=== PATIENT | male | born 1960 | race Caucasian/White ===

== ENCOUNTER → 2024-03-14 11:25 | Outpatient (BNVA) | payer MEDICAID, SELFPAY | PROVIDERS: Family Provider Family Medicine; PCP Family Medicine; Referring Provider Family Medicine; Visit Provider Internal Medicine Cardiovascular Disease | DX: R07.9 Chest pain, unspecified (principal) | CPT/HCPCS: 93005 ==

== ENCOUNTER 2024-04-27 10:06 | Outpatient (CLI) | payer MEDICAID, SELFPAY | END 2024-04-27 10:07 | disposition home or self-care (01) | LOC: RAD 10:06 | PROVIDERS: Family Provider Family Medicine; PCP Family Medicine; Visit Provider Internal Medicine Cardiovascular Disease | DX: I25.810 Atherosclerosis of coronary artery bypass graft(s) without angina pectoris (principal); I11.0 Hypertensive heart disease with heart failure; I50.22 Chronic systolic (congestive) heart failure; E11.9 Type 2 diabetes mellitus without complications; E78.00 Pure hypercholesterolemia, unspecified; Z79.4 Long term (current) use of insulin; Z86.73 Personal history of transient ischemic attack (TIA), and cerebral infarction without residual deficits; I73.9 Peripheral vascular disease, unspecified; R94.31 Abnormal electrocardiogram [ECG] [EKG] | CPT/HCPCS: 99205 ==

== ENCOUNTER 2024-10-24 12:13 | Inpatient (IN) | payer MEDICAID, SELFPAY ==
[2024-10-24] VITALS (67 sets, daily range): BP systolic 99–151; BP diastolic 50–89; PULSE 82–120; RESP 15–35; TEMP 37.2; O2SAT 89–100; BMI 32.5
--- NOTE | 2024-10-24 12:18 | XRR_ITS ---
PROCEDURE INFORMATION: Exam: XR Chest Exam date and time: 10/24/2024 1:07 PM Age: 64 years old Clinical indication: Shortness of breath; Additional info: SOB TECHNIQUE: Imaging protocol: Radiologic exam of the chest. Views: 1 view. COMPARISON: CT chest wo con [id number] 03/29/2019 10:52 AM FINDINGS: Lungs: Interval development of compressive atelectasis in the right and left lower lobes, right middle lobe, and left lingula. Pleural spaces: Interval development of small/moderate bilateral pleural effusions and fluid along the left major fissure. Heart/Mediastinum: Stable moderate enlargement of the cardiac silhouette. Mediastinal contours are unremarkable. Vasculature: Stable vascular calcifications in the aorta. Bones/joints: Unremarkable for age. XR/XR chest 1V portable [id number] IMPRESSION: 1. Interval development of small/moderate bilateral pleural effusions and fluid along the left major fissure with compressive atelectasis in the right and left lower lobes, right middle lobe, and left lingula. 2. Incidental/nonacute findings are listed in the report.
--- NOTE | 2024-10-24 12:20 | ECG_ITS ---
[facility] Test Date: 2024-10-24 Pat Name: Owen Ann Department: Room: Gender: Male Bible Reader: : 1960 Requested By: Denis Early Order Number: [id number] Chun MD: Abilio Perdomo M.D. Measurements Intervals [place] Rate: 113 P: 42 [place]: 195 QRS: -29 QRSD: 128 T: 128 QT: 340 QTc: 468 Interpretive Statements SINUS TACHYCARDIA POSSIBLE ANTERIOR MYOCARDIAL INFARCTION , OF INDETERMINATE AGE [30 ms Q WAVE IN V3/V4, OR R < 0.2 mV IN V4] MODERATE T-WAVE ABNORMALITY, CONSIDER LATERAL ISCHEMIA [-0.1+ mV T-WAVE IN I/aVL/V5/V6] Compared to ECG 03/14/2024 11:37:38 Myocardial infarct finding now present T-wave abnormality now present Possible ischemia now present Sinus rhythm no longer present Left-axis deviation no longer present Left bundle-branch block no longer present Electronically Signed On 10-29-2024 18:16:54 ASSET COORDINATOR by Abilio Perdomo M.D. [id number]
--- NOTE | 2024-10-24 12:20 | ECG_ITS ---
[facility] Test Date: 2024-10-24 Pat Name: Owen Ann Department: Room: Gender: Male Jewelry Dipper: : 1960 Requested By: Denis Early Order Number: [id number] Chun MD: Abilio Perdomo M.D. Measurements Intervals [place] Rate: 113 P: 42 [place]: 195 QRS: -29 QRSD: 128 T: 128 QT: 340 QTc: 468 Interpretive Statements SINUS TACHYCARDIA POSSIBLE ANTERIOR MYOCARDIAL INFARCTION , OF INDETERMINATE AGE [30 ms Q WAVE IN V3/V4, OR R < 0.2 mV IN V4] MODERATE T-WAVE ABNORMALITY, CONSIDER LATERAL ISCHEMIA [-0.1+ mV T-WAVE IN I/aVL/V5/V6] Compared to ECG 03/14/2024 11:37:38 Myocardial infarct finding now present T-wave abnormality now present Possible ischemia now present Sinus rhythm no longer present Left-axis deviation no longer present Left bundle-branch block no longer present Electronically Signed On 10-29-2024 18:16:51 ARCADE GAME TECHNICIAN by Abilio Perdomo M.D. [email or web address] [id number]
[2024-10-24 13:17] LABS: Basophils # 0.1 10^3/uL (0.0-0.1); Basophils % 0.6 %; Eosinophils # 0.1 10^3/uL (0.0-0.8); Eosinophils % 0.6 %; Hematocrit 29.7 % (37-53); Lymphocytes # 0.6 10^3/uL (0.8-4.8); Lymphocytes % 6.3 %; Mean Corpuscular HGB Conc 26.3 g/dL (30-55); Mean Corpuscular Hemoglobin 16.7 pg (27-33); Mean Corpuscular Volume 63.6 fl (82-101); Mean Platelet Volume 10.6 fL (7.4-10.4); Monocytes # 0.7 10^3/uL (0.2-0.9); Monocytes % 7.9 %; Neutrophils # 7.36 10^3/uL (1.8-7.7); Neutrophils % 83.8 %; Nucleated Red Blood Cells % 0 %; Platelet Count 214 10^3/cmm (157-399); Red Blood Count 4.67 10^6/uL (3.85-5.65); Red Cell Distribution Width 18.3 % (12.1-15.1); White Blood Count 8.77 10^3/uL (3.29-11.43)
[2024-10-24 13:34] LABS: D Dimer 0.53 ug/mLFEU (0-0.59)
[2024-10-24 13:45] LABS: Troponin(5th) Baseline 76 ng/L (0-15)
[2024-10-24 13:52] LABS: Alanine Aminotransferase 10 U/L (0-41); Albumin Level 3.8 g/dL (3.5-5.2); Alkaline Phosphatase 80 U/L (40-130); Aspartate Amino Transferase 12 U/L (0-40); Blood Urea Nitrogen 18 mg/dL (8-23); Calcium 8.9 mg/dL (8.5-10.5); Carbon Dioxide 24 mmol/L (22-29); Chloride 98 mmol/L (98-107); Creatinine Clr Calc Pharmacy 80.0489; Globulin 2.1 g/dL (1.3-4.6); Glomerular Filtration Rate 67.6 mL/min (90-130); Glucose 134 mg/dL (65-115); NT Pro B Type Natriuretic Pept 4116 pg/mL (0-125); Osmolality Calculated 282 mOsm/kg (285-295); Sodium 134 mmol/L (136-145); Total Bilirubin 1.5 mg/dL (0.15-1.2); Total Protein 5.9 g/dL (6.6-8.7)
--- NOTE | 2024-10-24 13:54 | W.ED.SOB ---
HPI - SOB/Dyspnea General: Chief Complaint: Shortness of Breath/Dyspnea Stated Complaint: chf problems Time Seen by Provider: 10/24/24 13:07 Source: patient and family Mode of arrival: ambulatory Limitations: no limitations History of Present Illness: HPI Narrative: 64-year-old male with a history of sarcoidosis, diabetes, congestive heart failure, hypertension, anemia presents to the ER complaining of shortness of breath. Patient states he has been having a fever for the past 2 days the highest at 101 ?F. Patient also reports having a productive cough-denies hemoptysis. Patient reports swelling of lower extremities bilaterally but states this has been present x 6 months. Patient does take 80mg lasix BID. Patient is on 2.5 L of oxygen at home at all times. Patient denies chest pain, vision changes, abdominal pain, constipation, diarrhea, headaches. MD elicited complaint: shortness of breath and cough Pertinent past history: congestive heart failure and diabetes Onset (ago): day(s) Context: recent illness Timing: constant Severity: moderate Exacerbating factors: exertion Relieving factors: oxygen Known history of: congestive heart failure and diabetes Associated symptoms: Reports chest congestion and fever(s); Deny abdominal pain, chest pain, dizziness, extremity pain, hemoptysis, nausea, palpitations, syncope or vomiting Treatment prior to arrival: oxygen and diuretics Related Data Home Medications ?Medication ?Instructions ?Recorded ?Confirmed albuterol sulfate 2.5 mg/3 mL 2.5 mg inhalation Q4H PRN 07/05/21 10/24/24 (0.083 %) solution for nebulization Shortness Of Breath Or Wheezing aspirin 81 mg tablet,delayed 81 mg PO DAILY 07/05/21 10/24/24 release (Adult Aspirin Regimen) atorvastatin 40 mg tablet 40 mg PO DAILY 07/05/21 10/24/24 carvedilol 25 mg tablet 25 mg PO BID 07/05/21 10/24/24 fluticasone 250 mcg-salmeterol 50 1 inh inhalation BID 07/05/21 10/24/24 mcg/dose blistr powdr for inhalation (Wixela Inhub) furosemide 80 mg tablet 80 mg PO BID 07/05/21 10/24/24 gabapentin 100 mg capsule 200 mg PO BID 07/05/21 10/24/24 guaifenesin 1,200 mg tablet, 1,200 mg PO BID 07/05/21 10/24/24 extended release 12 hr (Mucinex) ipratropium 0.5 mg-albuterol 3 mg 3 ml inhalation QID PRN Shortness 07/05/21 10/24/24 (2.5 mg base)/3 mL nebulization Of Breath Or Wheezing soln isosorbide mononitrate 30 mg 30 mg PO DAILY 07/05/21 10/24/24 tablet,extended release 24 hr valsartan 320 mg tablet 320 mg PO DAILY 07/05/21 10/24/24 albuterol sulfate 90 mcg/actuation 2 puff inhalation Q4H PRN 06/15/23 10/24/24 aerosol inhaler (Ventolin HFA) Shortness Of Breath Or Wheezing blood sugar diagnostic (OneTouch 06/15/23 10/24/24 Verio test strips) glyburide 5 mg tablet 10 mg PO BID 06/15/23 10/24/24 insulin aspart U-100 100 unit/mL 25 unit SUBCUT TID 06/15/23 10/24/24 (3 mL) subcutaneous pen (Novolog FlexPen U-100 Insulin aspart) insulin glargine 100 unit/mL 75 unit SUBCUT DAILY 06/15/23 10/24/24 subcutaneous solution (Lantus U-100 Insulin) pen needle, diabetic 31 gauge x 06/15/23 10/24/24 3/16 (TechLITE Pen Needle) pen needle, diabetic 32 gauge x 06/15/23 10/24/24 5/32 (TechLITE Pen Needle) tramadol 50 mg tablet 50 mg PO Q6H PRN chronic pain 06/15/23 10/24/24 fluticasone propionate 50 1 spray intranasal DAILY 10/24/24 10/24/24 mcg/actuation nasal spray,suspension Allergies Allergy/AdvReac Type Severity Reaction Status Date / Time lisinopril AdvReac cough Verified 10/24/24 12:27 Review of Systems Const: Reports: fever(s), body aches and fatigue; Denies: chills Eyes: Denies: change in vision, blurry vision, photophobia, eye discomfort, eye discharge or eye redness Card: Reports: edema, swelling of feet/ankles and dyspnea on exertion; Denies: chest pain, palpitations, syncope or pre-syncope Resp: Reports: dyspnea, productive cough and chest congestion; Denies: non-productive cough, wheezing or hemoptysis GI: Denies: abdominal pain, nausea, vomiting or diarrhea Musc: Reports: extremity swelling; Denies: neck pain, back pain, extremity pain, joint pain, joint swelling or joint warmth Skin/Breast: Denies: rash Neuro: Denies: headache(s), numbness in extremities, weakness in extremities, sensory changes or dizziness PFSH ED PFSH: Medical History Hypertension Diabetes Chronic systolic (congestive) heart failure COPD (chronic obstructive pulmonary disease) [place] type 2a hyperlipoproteinemia Type 2 diabetes mellitus without complication Cerebrovascular accident Arteriosclerosis of coronary artery bypass graft Surgical History Hx of CABG Family History Mother Cancer Father Diabetes Brother Psychiatric illness Social History Smoking and tobacco/nicotine status: never used tobacco/nicotine Physical Exam Const: COMMON NORMALS: no acute distress, patient oriented x3, no limitations, alert and well nourished GENERAL APPEARANCE: cooperative ORIENTATION/CONSCIOUSNESS: Yes awake, Yes oriented to person, Yes oriented to place and Yes oriented to time Neck/C-Spine: COMMON NORMALS: no JVD Chest: COMMONS NORMALS: normal inspection of the chest and normal palpation of entire chest wall Resp: COMMON NORMALS: normal respiratory effort EFFORT & INSPECTION: Yes able to speak in complete sentences and Yes symmetric chest movement AUSCULTATION: crackles (lung bases) and wheezes (lower lobes bilaterally ) left lower and right lower Cardio: COMMON NORMALS: no JVD and regular rhythm RATE: tachycardic RHYTHM: regular rhythm GI: COMMON NORMALS: Normal to inspection, nondistended, normoactive bowel sounds present and Soft to palpation PALPATION: Yes Soft to palpation Back/Pelvis: COMMON NORMALS: thoracic and lumbar spine normal to inspection Extremity: COMMON NORMALS: capillary refill normal and no calf tenderness GENERAL: Yes edema (1+ pitting edema lower extremities bilaterally) Neuro: COMMON NORMALS: patient oriented x3, moves all extremities, no focal motor deficits and no sensory deficits noted SENSORIUM/ORIENTATION: Yes alert, Yes oriented to person, Yes oriented to place and Yes oriented to time Skin: COMMON NORMALS: no rashes or lesions noted GENERAL SKIN EXAM: no rashes or lesions noted Course Consultations: Consultation #1: Dr. Decker-accepts hospitalization to [facility] Vital Signs: Vital signs: Vital Signs Temperature 98.9 F 10/24/24 12:16 Pulse Rate 112 H 10/24/24 15:06 Respiratory Rate 24 H 10/24/24 15:06 Blood Pressure 151/74 10/24/24 12:16 Pulse Oximetry 100 10/24/24 15:06 Oxygen Delivery Me thod Nasal Cannula 10/24/24 15:06 Oxygen Flow Rate 2 10/24/24 15:06 MDM - SOB/Dyspnea Medical Decision Making Patient is a 64-year-old male with a history of sarcoidosis, congestive heart failure, diabetes, among other comorbidities here complaining of shortness of breath. He has been tachycardic and tachypneic throughout his stay. He chronically is on 2 L of oxygen-this is unchanged. Blood work today showing anemia with a hemoglobin of 7.8. Labs from [facility] were obtained which showed a hemoglobin of roughly 8.7 back in June. Patient does not complain of black or tarry stools. Chemistry panel overall unremarkable. Isolated hyperbilirubinemia 1.5. Patient's baseline troponin was elevated at 76 with a negative delta. He has no chest pain. BNP is 4000 with no previous comparisons. EKG is nonischemic. CXR showing moderate bilateral pleural effusions. CT imaging obtained confirming pleural effusions but also showing dense areas of consolidation. Spoke to hospitalist Dr. Rocha who is agreeable to admission. Dr. Early aware of patient will place admit orders. Medical Records I reviewed the patient's medical records. Lab Data I reviewed the patient's lab results. 10/24/24 13:09 10/24/24 13:09 Labs/Radiology: Radiology Impressions Chest X-Ray 10/24/24 12:18 IMPRESSION: 1. Interval development of small/moderate bilateral pleural effusions and fluid along the left major fissure with compressive atelectasis in the right and left lower lobes, right middle lobe, and left lingula. 2. Incidental/nonacute findings are listed in the report. Chest CTA 10/24/24 14:28 IMPRESSION: 1. No pulmonary embolism. 2. Small bilateral pleural effusions. 3. Dense areas of consolidation at the lung bases, lingula and RIGHT middle lobe. Consolidations are a combination of pneumonia and atelectasis. Greater component of pneumonia over atelectasis. 4. Mediastinal and hilar lymphadenopathy is probably reactive. 5. Pulmonary hypertension. No RIGHT heart strain. Laboratory Results WBC 8.77 10^3/uL (3.29-11.43) 10/24/24 13:09 RBC 4.67 10^6/uL (3.85-5.65) 10/24/24 13:09 Hgb 7.80 g/dL (11.27-16.99) L 10/24/24 13:09 Hct 29.7 % (37-53) L 10/24/24 13:09 MCV 63.6 fl (82-101) L 10/24/24 13:09 MCH 16.7 pg (27-33) L 10/24/24 13:09 MCHC 26.3 g/dL (30-55) L 10/24/24 13:09 RDW 18.3 % (12.1-15.1) H 10/24/24 13:09 Plt Count 214 10^3/cmm (157-399) 10/24/24 13:09 MPV 10.6 fL (7.4-10.4) H 10/24/24 13:09 Neut % (Auto) 83.8 % 10/24/24 13:09 Lymph % (Auto) 6.3 % 10/24/24 13:09 [place] % (Auto) 7.9 % 10/24/24 13:09 Eos % (Auto) 0.6 % 10/24/24 13:09 Baso % (Auto) 0.6 % 10/24/24 13:09 Neut # (Auto) 7.36 10^3/uL (1.8-7.7) 10/24/24 13:09 Lymph # (Auto) 0.6 10^3/uL (0.8-4.8) L 10/24/24 13:09 [place] # (Auto) 0.7 10^3/uL (0.2-0.9) 10/24/24 13:09 Eos # (Auto) 0.1 10^3/uL (0.0-0.8) 10/24/24 13:09 Baso # (Auto) 0.1 10^3/uL (0.0-0.1) 10/24/24 13:09 Nucleated RBC % (auto) 0 % 10/24/24 13:09 Nucleated RBCs # 0.0 /100WBC 10/24/24 13:09 D-Dimer 0.53 ug/mLFEU (0-0.59) 10/24/24 13:09 Sodium 134 mmol/L (136-145) L 10/24/24 13:09 Potassium 4.0 mmol/L (3.5-5.1) 10/24/24 13:09 Chloride 98 mmol/L (98-107) 10/24/24 13:09 Carbon Dioxide 24 mmol/L (22-29) 10/24/24 13:09 Anion Gap 16.0 (5-19) 10/24/24 13:09 BUN 18 mg/dL (8-23) 10/24/24 13:09 Creatinine 1.1 mg/dL (0.7-1.2) 10/24/24 13:09 GFR Calculation 67.6 mL/min (90-130) L 10/24/24 13:09 Glucose 134 mg/dL (65-115) H 10/24/24 13:09 Calculated Osmolality 282 mOsm/kg (285-295) L 10/24/24 13:09 Lactic Acid 1.4 mmol/L (0.5-2.2) 10/24/24 13:09 Calcium 8.9 mg/dL (8.5-10.5) 10/24/24 13:09 Total Bilirubin 1.5 mg/dL (0.15-1.2) H 10/24/24 13:09 AST 12 U/L (0-40) 10/24/24 13:09 ALT 10 U/L (0-41) 10/24/24 13:09 Alkaline Phosphatase 80 U/L (40-130) 10/24/24 13:09 Troponin T Baseline 76 ng/L (0-15) H 10/24/24 13:09 Troponin T 120 Minute 71.60 ng/L (0-15) H 10/24/24 15:06 Delta Troponin T -4.40 ABS# (0-10) L 10/24/24 15:06 NT-Pro-B Natriuret Pep 4116 pg/mL (0-125) H 10/24/24 13:09 Total Protein 5.9 g/dL (6.6-8.7) L 10/24/24 13:09 Albumin 3.8 g/dL (3.5-5.2) 10/24/24 13:09 Globulin 2.1 g/dL (1.3-4.6) 10/24/24 13:09 Procalcitonin 0.21 ng/mL (0-0.5) 10/24/24 13:09 Urine Color Yellow (Yellow) 10/24/24 15:21 Urine Appearance Clear (CLEAR) 10/24/24 15:21 Urine pH 6.0 (5-7) 10/24/24 15:21 Ur Specific [place] 1.032 (1.005-1.030) H 10/24/24 15:21 Urine Protein Trace (Negative) A 10/24/24 15:21 Urine Glucose (UA) Negative (Normal) 10/24/24 15:21 Urine Ketones Negative (Negative) 10/24/24 15:21 Urine Blood Negative (Negative) 10/24/24 15:21 Urine Nitrate Negative (Negative) 10/24/24 15:21 Urine Bilirubin Negative (Negative) 10/24/24 15:21 Urine Urobilinogen 1.0 mg/dL (Negative) 10/24/24 15:21 Ur Leukocyte Esterase 2+ (Negative) A 10/24/24 15:21 Urine RBC None /hpf (0-2) 10/24/24 15:21 Urine WBC 5-10 /hpf (0-5) H 10/24/24 15:21 Ur Squamous Epith Cells 0-4 /hpf (0-5) H 10/24/24 15:21 Amorphous Sediment Not Reportable 10/24/24 15:21 Urine Bacteria Trace /hpf (NONE) 10/24/24 15:21 Influenza A (PCR) Negative (Negative) 10/24/24 14:18 Influenza Type B (PCR) Negative (Negative) 10/24/24 14:18 RSV (PCR) Negative (Negative) 10/24/24 14:18 SARS-CoV-2 (PCR) Negative (Negative) 10/24/24 14:18 All radiology interpretation(s) finalized by discharge Discharge Plan Discharge Patient Disposition: Admitted As Inpatient Clinical Impression: Congestive heart failure, Dyspnea, Consolidation lung Condition: Stable Prescriptions: No Action albuterol sulfate 2.5 mg /3 mL (0.083 %) solution for nebulization 2.5 mg inhalation Q4H PRN (Reason: Shortness Of Breath Or Wheezing) fluticasone propion-salmeterol [Wixela Inhub] 250-50 mcg/dose blister with device 1 inh inhalation BID Mucinex 1,200 mg tablet extended release 12hr 1,200 mg PO BID aspirin [Adult Aspirin Regimen] 81 mg tablet,delayed release (DR/EC) 81 mg PO DAILY ipratropium-albuterol 0.5 mg-3 mg(2.5 mg base)/3 mL solution for nebulization 3 ml inhalation QID PRN (Reason: Shortness Of Breath Or Wheezing) isosorbide mononitrate 30 mg tablet extended release 24 hr 30 mg PO DAILY gabapentin 100 mg capsule 200 mg PO BID atorvastatin 40 mg tablet 40 mg PO DAILY valsartan 320 mg tablet 320 mg PO DAILY carvedilol 25 mg tablet 25 mg PO BID Rx Instructions: must administer with a meal/food furosemide 80 mg tablet 80 mg PO BID glyburide 5 mg tablet 10 mg PO BID Lantus U-100 Insulin 100 unit/mL solution 75 unit SUBCUT DAILY tramadol 50 mg tablet 50 mg PO Q6H PRN (Reason: chronic pain ) insulin aspart U-100 [Novolog FlexPen U-100 Insulin] 100 unit/mL (3 mL) insulin pen 25 unit SUBCUT TID Rx Instructions: per sliding scale (DME) OneTouch Verio test strips Strip See Rx Instructions .Route Rx Instructions: As directed (DME) pen needle, diabetic [TechLITE Pen Needle] 31 gauge x 3/16 needle See Rx Instructions .Route Rx Instructions: As directed (DME) pen needle, diabetic [TechLITE Pen Needle] 32 gauge x 5/32 needle See Rx Instructions .Route Rx Instructions: As directed albuterol sulfate [Ventolin HFA] 90 mcg/actuation HFA aerosol inhaler 2 puff inhalation Q4H PRN (Reason: Shortness Of Breath Or Wheezing) fluticasone propionate 50 mcg/actuation spray,suspension 1 spray INTRANASAL DAILY Referrals: Blayne Desai MD [Primary Care Provider] - Print Language: [place] Coding Level of Care Code 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
--- NOTE | 2024-10-24 14:28 | CT_ITS ---
WS: [id number] CT CHEST ANGIOGRAPHY WITH REFORMATS HISTORY: pleural effusions, tachycardic, dyspnea TECHNIQUE: Contiguous axial images are obtained through the chest during arterial injection of intravenous contrast. Images are reconstructed to evaluate the pulmonary arteries. MIP imaging also reviewed. All CT scans at [facility] use at least one of these dose optimization techniques: automated exposure control; mA and/or kV adjustment per patient size (includes targeted exams where dose is matched to clinical indication); or iterative reconstruction. CONTRAST: Omnipaque 350; 100 mL IV. DLP: 467.90 mGy.cm COMPARISON: 03/29/2019 Good opacification of the proximal pulmonary arteries. No pulmonary embolism is identified. Pulmonary artery is dilated measuring 4.1 cm. There is no RIGHT heart strain. Mild LEFT heart enlargement. Mild atherosclerosis aorta. Small bilateral pleural effusions with bibasilar areas of segmental atelectasis versus pneumonia at the lung bases. No pneumothorax. Additional consolidations in the lingula and RIGHT middle lobe. Extensive bilateral mediastinal and hilar lymphadenopathy. Lymph nodes measure up to 1.8 cm. Prior CABG. No adrenal mass. Spleen appears enlarged although is incompletely included on this exam. CT/CT angio chest PE protcl [id number] IMPRESSION: 1. No pulmonary embolism. 2. Small bilateral pleural effusions. 3. Dense areas of consolidation at the lung bases, lingula and RIGHT middle lo be. Consolidations are a combination of pneumonia and atelectasis. Greater comp onent of pneumonia over atelectasis. 4. Mediastinal and hilar lymphadenopathy is probably reactive. 5. Pulmonary hypertension. No RIGHT heart strain.
[2024-10-24 14:30] LABS: Lactic Sepsis W/Reflex 1.4 mmol/L (0.5-2.2)
[2024-10-24 14:40] LABS: Procalcitonin 0.21 ng/mL (0-0.5)
[2024-10-24] MEDS: iohexol 350 mg/mL 500 mL Btl (per mL) IV (14:54)
[2024-10-24] MEDS: ipratropium-albuterol 3 mL Neb INHALATION (15:04)
[2024-10-24] MEDS: FUROsemide 10 mg/mL SDV 10mL 60 MG IVP (15:08)
[2024-10-24 15:14] LABS: Influenza A NEGATIVE (Negative); Influenza B NEGATIVE (Negative); Respiratory Syncytial Virus Ce NEGATIVE (Negative); SARS-CoV-2 PCR NEGATIVE (Negative)
[2024-10-24 16:04] LABS: Bilirubin Urine Negative (Negative); Blood Urine Negative (Negative); Glucose Urine UA Negative (Normal); Ketones Urine Negative (Negative); Leukocyte Esterase Urine 2+ (Negative); Nitrate Urine Negative (Negative); Protein Urine Trace (Negative); Urine Appearance Clear (CLEAR); Urine Color Yellow (Yellow)
[2024-10-24 16:25] LABS: Specific Gravity, Urine 1.032 (1.005-1.030)
[2024-10-24 16:26] LABS: Add Urine Microscopic? YES; Bacteria Urine TRACE /hpf; Squamous Epithelial Cell Urine 0-4 /hpf (0-5); UA Manual Slide Review YES; UA Slide Review UA Slide Review Perf
[2024-10-24] MEDS: methylPREDNISolone sod succ 125 mg/2 mL INJ IVP (16:30)
[2024-10-24] MEDS: azithromycin 250 MG in sodium chloride 0.9% 250 ML IV (16:31)
[2024-10-24] MEDS: cefTRIAXone 1,000 mg SDV 1000 MG IVP (16:32)
--- NOTE | 2024-10-24 16:34 | ECG_ITS ---
[facility]: [facility]24[facility]24 Pat Name: Owen Ann Department: Room: Gender: Male Screw Machine Hand: : 1960 Requested By: Denis Early Order Number: [id number] Chun MD: Abilio Perdomo M.D. Measurements Intervals [place] Rate: 108 P: 21 [place]: 164 QRS: -32 QRSD: 142 T: 138 QT: 368 QTc: 493 Interpretive Statements SINUS TACHYCARDIA LEFT AXIS DEVIATION [QRS AXIS < -30] INTRAVENTRICULAR CONDUCTION DELAY [130+ ms QRS DURATION] Compared to ECG 10/24/2024 12:20:55 Left-axis deviation now present Intraventricular conduction delay now present Myocardial infarct finding no longer present T-wave abnormality no longer present Possible ischemia no longer present Electronically Signed On 10-29-2024 19:48:24 OVERHEAD DOOR TECHNICIAN by Abilio Perdomo M.D. [id number]
--- NOTE | 2024-10-24 17:00 | PM.HP ---
Providers/Chief Complaint Primary Care Provider: Blayne Desai MD Chief Complaint: chf problems History of Present Illness Owen Ann is a 64 year old male with past medical history of CAD post CABG, type 2 diabetes mellitus, hypertension, hyperlipidemia, possible congestive heart failure, CVA who lives by himself was brought into the ER today by his sister who is his primary caregiver because of difficulty in breathing which has been getting worse over last 2 months but acutely over last 3 to 4 days with concerns for difficulty on exertion because of shortness of breath getting worse over the last 2 days along with orthopnea. Patient also has noticed increased swelling in his lower limbs. Denies any nausea, vomiting, headache, melena, hematuria, hemoptysis, hematemesis. Patient recently has been needing up to 2 L of oxygen supplementation both at rest and on sleeping as per the sister for last 1 week. Review of Systems General: Reports: 10 or more systems reviewed and unremarkable except in HPI and below Const: Denies: fever(s), chills, body aches, change in appetite, change in weight, malaise, night sweats, diaphoresis, change in sleep pattern, daytime sleepiness or snoring Eyes: Denies: change in vision, blurry vision, photophobia, eye discomfort or eye discharge ENMT: Denies: throat pain, enlarged tonsils, hoarseness, mouth pain, oral sores, dry mouth, tinnitus, nasal congestion or post nasal drip Card: Denies: chest pain, palpitations, irregular heart rhythm, edema, swelling of feet/ankles, lightheadedness, syncope, pre-syncope, dyspnea on exertion, orthopnea, leg pain with exertion or acrocyanosis Resp: Denies: dyspnea, productive cough, non-productive cough, wheezing, stridor, pain on inspiration, change in phlegm color, hemoptysis or chest congestion GI: Denies: abdominal pain, nausea, vomiting, hematemesis, coffee ground emesis, dysphagia, heartburn, diarrhea, constipation, bloating, GI cramping, change in bowel habits, pain on defecation, hematochezia or melena : Denies: flank pain, difficulty urinating, dysuria, urinary frequency, urinary urgency, urinary hesitancy, urinary dribbling, difficulty starting urination, change in urine stream, nocturia or hematuria Musc: Denies: neck pain, back pain, extremity pain, joint pain, joint swelling, joint redness, joint stiffness or limited range of motion Neuro: Denies: headache(s), numbness in extremities, weakness in extremities, sensory changes, lack of coordination, difficulty walking, frequent falls, dizziness, vertigo, confusion, Slurred speech present, difficulty communicating thoughts or seizure-like activity Psych: Denies: anxiety, depression, mood swings, panic attacks, hopelessness or irritability Endo: Denies: polyuria, polydipsia, tired all the time, cold intolerance, excessive sweating, flushing or heat intolerance Shaheen/Lymph: Denies: easy bruising or easy bleeding All/Imm: Denies: tongue swelling, facial swelling or acute wheezing Medications/Allergies Home Medications ?Medication ?Instructions ?Recorded ?Confirmed ?Last Taken ?Type albuterol sulfate 2.5 mg/3 mL 2.5 mg inhalation Q4H PRN 07/05/21 10/24/24 Unknown History (0.083 %) solution for nebulization Shortness Of Breath Or Wheezing aspirin 81 mg tablet,delayed 81 mg PO DAILY 07/05/21 10/24/24 10/23/24 History release (Adult Aspirin Regimen) atorvastatin 40 mg tablet 40 mg PO DAILY 07/05/21 10/24/24 10/23/24 History carvedilol 25 mg tablet 25 mg PO BID 07/05/21 10/24/24 10/23/24 History fluticasone 250 mcg-salmeterol 50 1 inh inhalation BID 07/05/21 10/24/24 10/23/24 History mcg/dose blistr powdr for inhalation (Wixela Inhub) furosemide 80 mg tablet 80 mg PO BID 07/05/21 10/24/24 10/23/24 History gabapentin 100 mg capsule 200 mg PO BID 07/05/21 10/24/24 10/23/24 History guaifenesin 1,200 mg tablet, 1,200 mg PO BID 07/05/21 10/24/24 Unknown History extended release 12 hr (Mucinex) ipratropium 0.5 mg-albuterol 3 mg 3 ml inhalation QID PRN Shortness 07/05/21 10/24/24 Unknown History (2.5 mg base)/3 mL nebulization Of Breath Or Wheezing soln isosorbide mononitrate 30 mg 30 mg PO DAILY 07/05/21 10/24/24 10/23/24 History tablet,extended release 24 hr valsartan 320 mg tablet 320 mg PO DAILY 07/05/21 10/24/24 10/23/24 History albuterol sulfate 90 mcg/actuation 2 puff inhalation Q4H PRN 06/15/23 10/24/24 Unknown History aerosol inhaler (Ventolin HFA) Shortness Of Breath Or Wheezing blood sugar diagnostic (OneTouch 06/15/23 10/24/24 Unknown History Verio test strips) glyburide 5 mg tablet 10 mg PO BID 06/15/23 10/24/24 10/23/24 History insulin aspart U-100 100 unit/mL 25 unit SUBCUT TID 06/15/23 10/24/24 10/23/24 History (3 mL) subcutaneous pen (Novolog FlexPen U-100 Insulin aspart) insulin glargine 100 unit/mL 75 unit SUBCUT DAILY 06/15/23 10/24/24 10/23/24 History subcutaneous solution (Lantus U-100 Insulin) pen needle, diabetic 31 gauge x 06/15/23 10/24/24 Unknown History 3/16 (TechLITE Pen Needle) pen needle, diabetic 32 gauge x 06/15/23 10/24/24 Unknown History (TechLITE Pen Needle) tramadol 50 mg tablet 50 mg PO Q6H PRN chronic pain 06/15/23 10/24/24 10/23/24 History fluticasone propionate 50 1 spray intranasal DAILY 10/24/24 10/24/24 Unknown History mcg/actuation nasal spray,suspension Allergies Allergy/AdvReac Type Severity Reaction Status Date / Time lisinopril AdvReac cough Verified 10/24/24 12:27 PFSH Acute PFSH: Medical History (Updated 10/24/24 @ 17:03 by Rustam Contreras MD) Back pain GERD (gastroesophageal reflux disease) Myocardial infarction Hypercholesterolemia Sarcoidosis Peripheral neuropathy Osteoarthritis Azotemia Hypertension Diabetes Chronic systolic (congestive) heart failure COPD (chronic obstructive pulmonary disease) [place] type 2a hyperlipoproteinemia Type 2 diabetes mellitus without complication Cerebrovascular accident Arteriosclerosis of coronary artery bypass graft Surgical History Hx of CABG Family History Mother Cancer Father Diabetes Brother Psychiatric illness Social History Smoking and tobacco/nicotine status: never used tobacco/nicotine Vitals/I&O/Wt Last Vital Signs Temp 98.9 F 10/24/24 12:16 Pulse 112 H 10/24/24 15:06 Resp 24 H 10/24/24 15:06 BP 151/74 10/24/24 12:16 Pulse Ox 100 10/24/24 15:06 O2 Del Method Nasal Cannula 10/24/24 15:06 O2 Flow Rate 2 10/24/24 15:06 Weight last 48 hrs Weight 99.79 kg Physical Exam Narrative: General: No acute distress, AO x3, Pallor present, chronically sick appearing HEENT: PERRLA, pupils bilaterally equal and reactive Chest: Normal vesicular breath sounds, no added sounds, equal good air entry bilaterally CVS: S1-S2 regular, pansystolic murmur present at apex, tachycardia, no gallops, no rubs Abdomen: Soft, nontender, no organomegaly, bowel sounds present Neuro: No focal deficits, no facial deformity, AO x3, power 5/5 in all limbs Data 10/24/24 13:09 10/24/24 13:09 Micro: Microbiology 10/24/24 16:33 Blood Culture - Preliminary Blood SPECIMEN COLLECTED 10/24/24 16:29 Blood Culture - Preliminary Blood SPECIMEN COLLECTED A&P Assessment and plan (1) Hypoxia: Most likely a combination of congestive heart failure along with COPD exacerbation. Does have history of sarcoidosis in the past. Cannot rule out pneumonia though less likely given CT changes. Oxygen supplementation keeping saturation over 88%. Aggressive pulmonary toilet with I-S and Acapella. COVID-19/RSV/influenza negative in ER. Check sputum culture. CTA negative for pulmonary embolism. (2) Chronic systolic (congestive) heart failure: No echocardiogram present in the chart. As per family members he does have history of congestive heart failure in the past. Does have bilateral pleural effusion on CTA. Check echocardiogram. Fluid restriction to less than 1500 cc. IV Lasix 40 mg daily. Did receive Lasix in the ER. Will monitor urine output in next 24 hours and start on Lasix accordingly. Strict input output charting, daily weights. (3) COPD (chronic obstructive pulmonary disease): Pulmicort twice daily, ipratropium, Xopenex every 6 hour. Solu-Medrol 40 mg every 8 hour. (4) Sarcoidosis: Check angiotensin levels. (5) Hypertension: Goal blood pressure less than 140/90 mmHg. Continue home dose of Coreg, isosorbide, ARB. Uptitrate as for goal blood pressure. Qualifiers: Hypertension type: primary hypertension Qualified Code(s): I10 - Essential (primary) hypertension (6) Arteriosclerosis of coronary artery bypass graft: Appreciate troponin cycled. Baseline troponin elevated to more than 76. Patient denies any active chest pain. Echocardiogram as above. If concerns for regional wall motion normality on echocardiogram will plan for further evaluation with Lexiscan stress test. Patient had CABG in 2013. Does not follow-up with portal administrator at baseline. Continue with home dose of aspirin, statin, beta-edna, Imdur. Check A1c, lipid panel. Qualifiers: Associated angina: without angina [place] vs. transplanted heart: [place] heart Qualified Code(s): I25.810 - Atherosclerosis of coronary artery bypass graft(s) without angina pectoris (7) Type 2 diabetes mellitus without complication: Check A1c. Continue home dose of Lantus 75 units daily. Start on insulin sliding scale at moderate dose protocol. Hold off on OHA's. Qualifiers: Diabetes mellitus [facility] insulin use: with long chain beamer use Qualified Code(s): E11.9 - Type 2 diabetes mellitus without complications; Z79.4 - manager long term care (current) use of insulin (8) Consolidation lung: Pneumonia versus chronic changes from sarcoidosis. Check sputum culture. Patient does not have any leukocytosis. Afebrile for now. Follow-up blood cultures.Check bacterial antigen. Empirically continue with IV ceftriaxone and oral azithromycin to cover for community-acquired pneumonia for now. (9) Pleural effusion: Plan Anemia: Hemoglobin 7.8. On reviewing past it has been as high as 13 in 2013. Check stool for occult blood. IV Protonix 40 mg twice daily. Monitor hemoglobin daily. If downtrending or requiring blood transfusion will require surgery for endoscopy and colonoscopy otherwise patient made to follow-up as an outpatient. CODE STATUS: Substituted with DPOA. Full code. Cardiac carb consistent diet Protonix to be sufficient for PUD prophylaxis SCD for DVT prophylaxis given anemia. PDMP PDMP Reviewed: Not Reviewed Attestations Medical Necessity Statement*: Admission for more than 2 midnights for management of hypoxia in setting of congestive heart failure, COPD exacerbation with concerns for pneumonia, history of sarcoidosis, history of CAD post CABG, anemia Diagnoses Hypoxia R09.02 Chronic systolic (congestive) heart failure I50.22 COPD (chronic obstructive pulmonary disease) J44.9 Sarcoidosis D86.9 Primary hypertension I10 Hypertension type: primary hypertension Atherosclerosis of coronary artery bypass graft of [place] heart without angina pectoris I25.810 Associated angina: without angina [place] vs. transplanted heart: [place] heart Type 2 diabetes mellitus without complication, with long-term current use of insulin E11.9; Z79.4 Diabetes mellitus [facility] insulin use: with [facility] use Consolidation lung J18.1 Pleural effusion J90
--- NOTE | 2024-10-24 17:34 | USCV_ITS ---
Owen Ann Age: 64 Gender: M : 1960 Exam Date: 10/24/2024 18:52 Ordering Phys: Rustam Contreras MD Technologist: ALKA [place]am [place] [facility] [place]: SOB, hx CAD s/p CABG, DM2, HTN HL, hx CVA, evaluate for CHF BP: 151 / 74 HR: 88 Rhythm: Atrial fibrillation Technical Quality: Adequate MEASUREMENTS (Male / Female) Normal Values 2D ECHO LV Diastolic Diameter PLAX 4.4 cm 4.2 - 5.9 / 3.9 - 5.3 cm IVS Diastolic Thickness 1.5 cm 0.6 - 1.0 / 0.6 - 0.9 cm IVS Systolic Thickness 1.5 cm LVPW Diastolic Thickness 1.2 cm 0.6 - 1.0 / 0.6 - 0.9 cm LVPW Systolic Thickness 2.4 cm LVOT Diameter 2.1 cm LV Ejection Fraction 2D Teich 22.1 % LV Ejection Fraction MOD 4C 18.2 % LV Ejection Fraction MOD 2C 36.7 % LV Ejection Fraction 2C AL 37.2 % LA Diameter 3.9 cm Aorta at Sinotubular Diameter 3.8 cm IVC Diameter 2.5 cm M-MODE LA Ao Ratio MM 1.2 AV Cusp Separation MM 2.3 cm DOPPLER AV Peak Velocity 140.0 cm/s LVOT Peak Velocity 73.0 cm/s AV Area Cont Eq vti 2.0 cm squared AV Area Cont Eq pk 1.7 cm squared MV Peak Velocity 165.0 cm/s MV Area PHT 3.9 cm squared Mitral E to A Ratio 0.0 TV Peak Velocity 276.5 cm/s TR Peak Velocity 286.0 cm/s TR Peak Gradient 32.7 mmHg TV Peak E Velocity 62.0 cm/s PV Peak Velocity 107.0 cm/s FINDINGS Left Ventricle Moderately increased left ventricular cavity size. Severely decreased left ventricular systolic function. Left ventricular ejection fraction is estimated at 30 %. Global left ventricular hypokinesis. Right Ventricle The right ventricle is normal in size and function. Right Atrium The right atrium is normal in size. Left Atrium The left atrium is normal in size. Mitral Valve Moderately thickened mitral valve. Moderate mitral annular calcification. Moderate mitral valve regurgitation. Aortic Valve Severe aortic valve calcification. Moderate aortic valve stenosis, mean gradient 3.5 mmHg, AARON 2 cm squared. Mild aortic valve regurgitation. Tricuspid Valve Severe tricuspid valve regurgitation. Pulmonic Valve Trace pulmonary valve regurgitation. Pericardium Normal pericardium without effusion. Aorta Normal ascending aorta dimension. IVC The inferior vena cava appears normal. CONCLUSIONS Moderately increased left ventricular cavity size. Severely decreased left ventricular systolic function. Left ventricular ejection fraction is estimated at 30 %. Global left ventricular hypokinesis. Moderately thickened mitral valve. Moderate mitral annular calcification. Moderate mitral valve regurgitation. Severe aortic valve calcification. Moderate aortic valve stenosis, mean gradient 3.5 mmHg, AARON 2 cm squared. Mild aortic valve regurgitation. Severe tricuspid valve regurgitation. There is no pericardial effusion. Right atrial pressure is around 5 mm of mercury. Ibis Grajeda MD (Electronically Signed) Final Date: 24 October 2024 21:14 S
[2024-10-24] MEDS: metoprolol tartrate 1 mg/1 mL SDV 5 mL 5 MG IVP (17:38)
[2024-10-24] MEDS: pantoprazole 40 mg SDV IVP (17:39)
[2024-10-24] MEDS: carvedilol 25 mg Tablet PO (18:06)
[2024-10-24] MEDS: gabapentin 100 mg Capsule 200 MG PO (18:06)
[2024-10-24] MEDS: docusate sodium 100 mg Capsule PO (18:06)
[2024-10-24] MEDS: insulin lispro 100 unit/1 mL SUBCUT ×2 (18:10→21:46)
--- NOTE | 2024-10-24 18:47 | ECG_ITS ---
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 Measurements Intervals [place] Rate: 97 P: 1 MT: 177 QRS: 91 QRSD: 150 T: 267 QT: 386 QTc: 491 Interpretive Statements SINUS RHYTHM WITH OCCASIONAL VENTRICULAR PREMATURE COMPLEXES POSSIBLE LEFT ATRIAL ENLARGEMENT [-0.1mV P-WAVE IN V1/V2] BORDERLINE RIGHT AXIS DEVIATION [QRS AXIS > 90] INTRAVENTRICULAR CONDUCTION DELAY [130+ ms QRS DURATION] Compared to ECG 10/24/2024 16:34:36 Ventricular premature complex(es) now present Sinus tachycardia no longer present Left-axis deviation no longer present Electronically Signed On 10-29-2024 19:47:33 HEEL WHEELER by Abilio Perdomo M.D. [email or web address] [id number]
--- NOTE | 2024-10-24 19:07 | PC.NURSE ---
this nurse assumed pt care at 1900 from Yakelin BRADFORD.
[2024-10-24 19:12] LABS: Iron 16 ug/dL (59-158)
[2024-10-24 19:28] LABS: Vitamin B12 390 pg/mL (232-1245)
[2024-10-24 20:09] LABS: Troponin 5 6HR 83.26 ng/L (0-15); Troponin 5 6HR Delta 7.26 ng/L (0-12)
[2024-10-24] MEDS: levalbuterol 0.63 mg/3 mL Neb INHALATION (20:49)
[2024-10-24] MEDS: ipratropium 0.5 mg/2.5 mL Neb INHALATION (20:50)
[2024-10-24] MEDS: budesonide 0.5 mg/2 mL Neb INHALATION (20:50)
[2024-10-24 22:09] LABS: Estmated Average Glucose 183
[2024-10-24] MEDS: methylPREDNISolone sod succ 40 mg/mL INJ IVP (23:23)
[2024-10-25] VITALS (64 sets, daily range): BP systolic 92–143; BP diastolic 49–78; PULSE 75–106; RESP 15–27; TEMP 36.7–36.8; O2SAT 62–100; BMI 35.7
[2024-10-25 00:23] LABS: Thyroid Stimulating Hormone 2.97 uIU/mL (0.27-4.20)
[2024-10-25 01:38] LABS: Percent Saturation 4.1 % (20-50); Total Iron Binding Capacity 383 mcg/dl; Unsaturated Iron Binding 367 ug/dL (112-347)
[2024-10-25] MEDS: levalbuterol 0.63 mg/3 mL Neb INHALATION ×4 (02:00→21:07)
[2024-10-25] MEDS: ipratropium 0.5 mg/2.5 mL Neb INHALATION ×4 (02:00→21:06)
[2024-10-25 03:28] LABS: Basophils % 0.2 %; Hematocrit 29.8 % (37-53); Lymphocytes # 0.4 10^3/uL (0.8-4.8); Lymphocytes % 7.7 %; Mean Corpuscular HGB Conc 25.2 g/dL (30-55); Mean Corpuscular Hemoglobin 16.3 pg (27-33); Mean Corpuscular Volume 64.9 fl (82-101); Monocytes # 0.1 10^3/uL (0.2-0.9); Monocytes % 2.5 %; Neutrophils # 5.02 10^3/uL (1.8-7.7); Neutrophils % 88.4 %; Nucleated Red Blood Cells % 0 %; Platelet Count 165 10^3/cmm (157-399); Red Blood Count 4.59 10^6/uL (3.85-5.65); Red Cell Distribution Width 18.4 % (12.1-15.1); White Blood Count 5.68 10^3/uL (3.29-11.43)
[2024-10-25 03:51] LABS: Alanine Aminotransferase 10 U/L (0-41); Albumin Level 3.5 g/dL (3.5-5.2); Alkaline Phosphatase 76 U/L (40-130); Anion Gap 17.1 (5-19); Aspartate Amino Transferase 10 U/L (0-40); Blood Urea Nitrogen 24 mg/dL (8-23); Calcium 8.9 mg/dL (8.5-10.5); Carbon Dioxide 23 mmol/L (22-29); Chloride 98 mmol/L (98-107); Creatinine Clr Calc Pharmacy 73.3781; Globulin 2.5 g/dL (1.3-4.6); Glomerular Filtration Rate 61.1 mL/min (90-130); Glucose 318 mg/dL (65-115); Magnesium 2.3 mg/dL (1.7-2.3); Osmolality Calculated 294 mOsm/kg (285-295); Phosphorus 3.7 mg/dL (2.5-4.5); Potassium 4.1 mmol/L (3.5-5.1); Procalcitonin 0.25 ng/mL (0-0.5); Sodium 134 mmol/L (136-145)
[2024-10-25 03:52] LABS: Chol HDL Ratio 3.39 mg/dL (1.0-5.00); Cholesterol 122 mg/dL (0-200); HDL Cholesterol 36 mg/dL (60-100); LDL Cholesterol Calculated 67 mg/dL (50-129); LDL HDL Ratio 1.86 RATIO (0.00-3.22); Triglycerides 97 mg/dL (0-150)
[2024-10-25 04:12] LABS: Folate Level 8.5 ng/mL (4.5-32.2)
[2024-10-25] MEDS: FUROsemide 10 mg/mL SDV 4mL 40 MG IVP ×3 (04:51→20:47)
[2024-10-25] MEDS: pantoprazole 40 mg SDV IVP ×2 (04:51→17:05)
--- NOTE | 2024-10-25 06:13 | SUR.PREOP ---
STRESS TEST REFUSAL NOTE Notified by Nuclear Medicine that patient is refusing the test. Cancelled at his request.
[2024-10-25] MEDS: methylPREDNISolone sod succ 40 mg/mL INJ IVP (07:32)
--- NOTE | 2024-10-25 07:45 | PC.NURSE ---
Spoke with Dr. Contreras and he asked me to keep the patient NPO and to call his sister Jade to try and convince the patient to do the lexican. Patient is refusing the lexisan at this time.
--- NOTE | 2024-10-25 07:51 | PC.NURSE ---
Attempted to call patient's 2nd sister on his contact list and could not leave her a voice mail.
[2024-10-25] MEDS: budesonide 0.5 mg/2 mL Neb INHALATION ×2 (07:57→21:07)
[2024-10-25] MEDS: gabapentin 100 mg Capsule 200 MG PO ×2 (09:56→17:06)
[2024-10-25] MEDS: atorvastatin 40 mg Tablet PO (09:57)
[2024-10-25] MEDS: losartan 50 mg Tablet 100 MG PO (09:57)
[2024-10-25] MEDS: azithromycin 250 mg Tablet 500 MG PO (09:57)
[2024-10-25] MEDS: isosorbide mononitrate ER 30 mg Tablet PO (09:57)
[2024-10-25] MEDS: aspirin 81 mg EC Tablet PO (09:57)
[2024-10-25] MEDS: carvedilol 25 mg Tablet PO ×2 (09:57→17:06)
[2024-10-25] MEDS: docusate sodium 100 mg Capsule PO (09:57)
[2024-10-25] MEDS: insulin lispro 100 unit/1 mL SUBCUT ×4 (10:06→20:47)
--- NOTE | 2024-10-25 12:49 | ECG_ITS ---
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
--- NOTE | 2024-10-25 12:50 | P.PN_ITS ---
Subjective 2 Subjective: Documents overnight. Patient stayed in the ER overnight as he did not have a bed in [facility]. Today morning seen in [facility]. He refused Lexiscan stress test early in the morning but is agreeable now. Unfortunately the medication for Lexiscan was already used up. Will plan for Lexiscan in a.m. Patient states he is feeling little better today. Seen with multiple family members at bedside. Vitals/I&O/Wt Last Vital Signs Temp 98.9 F 10/24/24 12:16 Pulse 104 H 10/25/24 08:59 Resp 16 10/25/24 08:00 BP 135/75 10/25/24 09:57 Pulse Ox 99 10/25/24 08:59 O2 Del Method Room Air 10/25/24 10:35 O2 Flow Rate 2 10/25/24 02:00 10/24/24 10/25/24 10/25/24 22:59 06:59 14:59 Intake Total 0 / 0 480 / 480 Output Total 1150 / 1150 Balance 0 / 0 480 / 480 -1150 / -1150 Weight last 48 hrs Weight 99.79 kg Physical Exam 2 Narrative: General: No acute distress, AO x3, Pallor present, chronically sick appearing HEENT: PERRLA, pupils bilaterally equal and reactive Chest: Normal vesicular breath sounds, no added sounds, equal good air entry bilaterally CVS: S1-S2 regular, pansystolic murmur present at apex, tachycardia, no gallops, no rubs Abdomen: Soft, nontender, no organomegaly, bowel sounds present Neuro: No focal deficits, no facial deformity, AO x3, power 5/5 in all limbs Urinary Catheter Management: Pope: Cath Placed During This Visit: yes Reason for Continuing Indwelling Catheter: Accurate Measurement of Urinary Output in Critically Ill Patients Urinary Catheter Date of Insertion: 10/24/24 Urinary Catheter Time of Insertion: 22:06 Data 10/25/24 02:55 10/25/24 02:55 Micro: Microbiology 10/24/24 15:21 Bacterial Antigens - Final Urine Kidney 10/24/24 16:33 Blood Culture - Preliminary Blood SPECIMEN COLLECTED 10/24/24 16:29 Blood Culture - Preliminary Blood SPECIMEN COLLECTED A&P Assessment and plan (1) Hypoxia: Most likely a combination of congestive heart failure along with COPD exacerbation. More so because of congestive heart failure. Does have history of sarcoidosis in the past. Cannot rule out pneumonia though less likely given CT changes. Oxygen supplementation keeping saturation over 88%. Aggressive pulmonary toilet with I-S and Acapella. COVID-19/RSV/influenza negative in ER. Sputum culture not collected yet. CTA negative for pulmonary embolism. (2) Chronic systolic (congestive) heart failure: Echocardiogram done today shows an EF of 30% with global LV hypokinesia, moderate MR, moderate aortic valve stenosis with mean gradient of 3.5 mmHg, mild MR, severe TR. Fluid restriction to less than 1500 cc. Continue with IV Lasix 40 mg twice daily. Strict input output charting, daily weights. (3) Arteriosclerosis of coronary artery bypass graft: Baseline troponin 76. Delta and 6 hours of 7. Patient remains chest pain-free. Repeat troponin level today morning. Appreciate echocardiogram as above. Cannot rule out ACS in setting of cardiomyopathy. As patient remains chest pain-free, has history of anemia for now we will hold off on full dose anticoagulation. Plan for Lexiscan stress test in a.m. N.p.o. after midnight. Patient is agreeable now. Patient had CABG in 2012. Does not follow-up with focused factory manager at baseline. Continue with home dose of aspirin, statin, beta-edna, Imdur. Appreciate A1c, lipid panel. Qualifiers: [place] vs. transplanted heart: [place] heart Associated angina: without angina Qualified Code(s): I25.810 - Atherosclerosis of coronary artery bypass graft(s) without angina pectoris (4) Cardiomyopathy: Found to have EF of 30%. Concern for ischemic cardiomyopathy given history of CABG. Lexiscan stress test as above. Patient is already on guideline directed medical therapy with carvedilol 25 mg twice daily, ARB. Having frequent VPCs. Start on amiodarone as above. Depending on the results from Lexiscan will discuss with cardiology regarding further plan. Will discuss with cardiology regarding possible need for LifeVest. (5) COPD (chronic obstructive pulmonary disease): Pulmicort twice daily, ipratropium, Xopenex every 6 hour. Switch Solu-Medrol to prednisone 40 mg oral daily. (6) Hypertension: Goal blood pressure less than 140/90 mmHg. Continue home dose of Coreg, isosorbide, ARB. Uptitrate as for goal blood pressure. Patient continues to remain tachycardic with occasional VPCs. Given cardiomyopathy with EF 30% for now we will start on amiodarone 400 mg twice daily for loading. Will plan for switching down to 200 mg twice daily in 1 week followed by 200 mg once daily in 1 week. Qualifiers: Hypertension type: primary hypertension Qualified Code(s): I10 - Essential (primary) hypertension (7) Type 2 diabetes mellitus without complication: A1c of 8 Continue home dose of Lantus 75 units daily. Start on insulin sliding scale at moderate dose protocol. Hold off on OHA's. Will plan to switch Lantus 75 units daily to 40 units twice daily on discharge. Qualifiers: Diabetes mellitus group home insulin use: with group home use Qualified Code(s): E11.9 - Type 2 diabetes mellitus without complications; Z79.4 - manager terminal (current) use of insulin (8) Consolidation lung: Pneumonia versus chronic changes from sarcoidosis. Sputum culture awaited. MRSA swab pending. Bacterial antigen negative. Patient does not have any leukocytosis. Afebrile for now. Empirically continue with IV ceftriaxone and oral azithromycin to cover for community-acquired pneumonia for now. (9) Pleural effusion: (10) Moderate mitral valve regurgitation: (11) Moderate aortic stenosis: (12) Sarcoidosis: Check angiotensin levels. Plan Anemia: Hemoglobin stable. Check stool for occult blood. IV Protonix 40 mg twice daily. Monitor hemoglobin daily. If downtrending or requiring blood transfusion will require surgery for endoscopy and colonoscopy otherwise patient made to follow- up as an outpatient. CODE STATUS: Substituted with DPOA. Full code. Cardiac carb consistent diet Protonix to be sufficient for PUD prophylaxis SCD for DVT prophylaxis given anemia. PDMP PDMP Reviewed: Not Reviewed Attestations 2 Medical Necessity Statement*: Requires further hospitalization for management of shortness of breath in setting of congestive heart failure with cardiomyopathy, EF 30% with concerns for moderate MR, moderate aortic valve stenosis while patient undergoes further ACS workup Diagnoses Hypoxia R09.02 Chronic systolic (congestive) heart failure I50.22 Atherosclerosis of coronary artery bypass graft of [place] heart without angina pectoris I25.810 [place] vs. transplanted heart: [place] heart Associated angina: without angina Cardiomyopathy I42.9 COPD (chronic obstructive pulmonary disease) J44.9 Primary hypertension I10 Hypertension type: primary hypertension Type 2 diabetes mellitus without complication, with long-term current use of insulin E11.9; Z79.4 Diabetes mellitus manager terminal insulin use: with group home use Consolidation lung J18.1 Pleural effusion J90 Moderate mitral valve regurgitation I34.0 Moderate aortic stenosis I35.0 Sarcoidosis D86.9
[2024-10-25] MEDS: amiodarone 200 mg Tablet 400 MG PO ×2 (13:19→17:06)
[2024-10-25] MEDS: morphine 4 mg/mL SDV 1 mL 2 MG IVP (13:31)
--- NOTE | 2024-10-25 15:01 | P.CONIM_ITS ---
<Statement entered by Abilio Perdomo M.D - 10/26/24 08:06> Patient was evaluated and cared for in conjunction with an advanced practice practitioner.? I personally examined the patient and reviewed the chart and all pertinent data including imaging, telemetry, and laboratory results.? I discussed the patient in detail with the advanced practice practitioner.? Please see? their note for complete consult note, testing results and agreed upon plan of care for the patient. GENERAL: Patient is alert, awake and oriented x3. HEART: Regular S1 and S2 LUNGS: Clear to auscultate bilaterally. CENTRAL NERVOUS SYSTEM: Grossly nonfocal. EXTREMITIES: Lower extremities with out edema bilaterally. LV dysfunction Coronary artery disease Aortic stenosis Patient has a history of CABG and LV dysfunction. No recent records. Denies chest pain. His hemoglobin is low. Will recommend GI workup prior to ischemic work up is done. Alternative will be to perform stress test first and if significant ischemia only then perform coronary angigram Thank you for involving us with care of this patient. Please call with questions Providers/Reason For Consult 2 Consulting Physician/Specialty*: Dr Perdomo, cardiology Reason for Consult*: NSTEMI, LVEF 30% Attending Physician: Rustam Contreras MD Primary Care Provider: Blayne Desai MD History of Present Illness History of Present Illness Owen Ann is a 64 year old male with past medical history of sarcoidosis, hypertension, type 2 diabetes, dyslipidemia, CAD status post CABG x 3 in 2013 in [place]. He presented to the emergency room yesterday with worsening shortness of breath. He notes worsening lower extremity edema began about a month ago and noted rapid heart rate at night when he laid down. He has had inability to lay down flat for a long time due to the sarcoidosis, he does not feel that this has been worsening. Troponin series: 76->71-> 83. BNP 4416. Hemoglobin yesterday 7.8, today is 7.5- no bloody stool or hematemesis reported. EKG showed sinus rhythm with PVCs. He was started on amiodarone taper. Echocardiogram yesterday: LVEF 30% moderately increased LV cavity size, global left ventricular hypokinesis, moderate mitral regurgitation, moderate aortic stenosis (mean gradient 3.5 mmHg, AARON 2 cm?), mild aortic regurgitation, severe tricuspid regurgitation. CTA negative for PE, small bilateral pleural effusions present. Possible pneumonia-empiric antibiotic coverage. He has been started on Protonix 40 mg twice a day. Review of Systems 2 Const: Denies: fever(s), chills, change in weight, fatigue or diaphoresis Eyes: Denies: change in vision ENMT: Denies: epistaxis Card: Reports: palpitations, edema and orthopnea; Denies: chest pain, irregular heart rhythm, syncope, pre-syncope, dyspnea on exertion or leg pain with exertion Resp: Denies: dyspnea, productive cough or wheezing GI: Denies: nausea, vomiting, hematemesis, hematochezia or melena : Denies: hematuria Shaheen/Lymph: Denies: easy bruising or easy bleeding Medications/Allergies Home Medications ?Medication ?Instructions ?Recorded ?Confirmed ?Last Taken ?Type albuterol sulfate 2.5 mg/3 mL 2.5 mg inhalation Q4H CO N 07/05/21 10/24/24 Unknown History (0.083 %) solution for nebulization Shortness Of Breat h Or Wheezing aspirin 81 mg tablet,delayed 81 mg PO DAILY 07/05/21 0 10/24/24 10/23/24 History release (Adult Aspirin Regimen) atorvastatin 40 mg tablet 40 mg PO DAILY 07/05/21 03/0 11/1510/23/24 History carvedilol 25 mg tablet 25 mg PO BID 07/05/2110/23/24 History fluticasone 250 mcg-salmeterol 50 1 inh inhalation BID 07/05/21 10/24/24 10/23/24 History mcg/dose blistr powdr for inhalation (Wixela Inhub) furosemide 80 mg tablet 80 mg PO BID 07/05/2110/23/24 History gabapentin 100 mg capsule 200 mg PO BID 07/05/2110/2410/23/24 History guaifenesin 1,200 mg tablet, 1,200 mg PO BID 07/05/21 10/24/24 Unknown History extended release 12 hr (Mucinex) ipratropium 0.5 mg-albuterol 3 mg 3 ml inhalation QID PRN Shortness 07/05/21 10/24/24 Unknown History (2.5 mg base)/3 mL nebulization Of Breath Or Wheezing soln isosorbide mononitrate 30 mg 30 mg PO DAILY 07/05/21 0 10/24/24 10/23/24 History tablet,extended release 24 hr valsartan 320 mg tablet 320 mg PO DAILY 07/05/2111/1510/23/24 History albuterol sulfate 90 mcg/actuation 2 puff inhalation Q 4H PRN 06/15/23 10/24/24 Unknown History aerosol inhaler (Ventolin HFA) Shortness Of Breath Or Wheezing blood sugar diagnostic (OneTouch 06/15/23 10/24/24 Un known History Verio test strips) glyburide 5 mg tablet 10 mg PO BID 06/15/2310/23/24 History insulin aspart U-100 100 unit/mL 25 unit SUBCUT TID 10/24/24 10/23/24 History (3 mL) subcutaneous pen (Novolog FlexPen U-100 Insulin aspart) insulin glargine 100 unit/mL 75 unit SUBCUT DAILY 05/2510/24/24 10/23/24 History subcutaneous solution (Lantus U-100 Insulin) pen needle, diabetic 31 gauge x 06/15/23 10/24/24 Unk nown History 316 (TechLITE Pen Needle) pen needle, diabetic 32 gauge x 06/15/23 10/24/24 Unk nown History (TechLITE Pen Needle) tramadol 50 mg tablet 50 mg PO Q6H PRN chronic mario n 06/15/23 10/24/24 10/23/24 History fluticasone propionate 50 1 spray intranasal DAILY 11/1510/24/24 Unknown History mcg/actuation nasal spray,suspension Allergies Allergy/AdvReac Type Severity Reaction Status Date / Time lisinopril AdvReac cough Verified 10/24/24 12:27 Current Medications Generic Name Dose Route Start Last Admin Trade Name Freq PRN Reason Stop Dose Admin Amiodarone HCl 400 mg 10/25/24 12:50 10/25/24 13:19 Amiodarone 200 Mg Tablet PO 400 mg BID SEEMA Administration Aspirin 81 mg 10/25/24 09:00 10/25/24 09:57 Aspirin 81 Mg Ec Tablet PO 81 mg DAILY SEEMA Administration Atorvastatin Calcium 40 mg 10/25/24 09:00 10/25/24 09:57 Atorvastatin 40 Mg Tablet PO 40 mg DAILY SEEMA Administration Azithromycin 500 mg 10/25/24 09:00 10/25/24 09:57 Azithromycin 250 Mg Tablet PO 500 mg DAILY SEEMA Administration Protocol Budesonide 0.5 mg 10/24/24 20:00 10/25/24 07:57 Budesonide 0.5 Mg/2 Ml Neb INHALATION 0.5 mg BID.RESPIRATORY SEEMA Administration Carvedilol 25 mg 10/24/24 18:00 10/25/24 09:57 Carvedilol 25 Mg Tablet PO 25 mg BID SEEMA Administration Docusate Sodium 100 mg 10/24/24 18:00 10/25/24 09:57 Docusate Sodium 100 Mg Capsule PO 100 mg BID SEEMA Administration Furosemide 40 mg 10/25/24 09:00 10/25/24 10:07 Furosemide 10 Mg/Ml Sdv 4ml IVP 40 mg Q12H SEEMA Administration Gabapentin 200 mg 10/24/24 18:00 10/25/24 09:56 Gabapentin 100 Mg Capsule PO 200 mg BID SEEMA Administration Insulin Glargine 75 unit 10/25/24 09:00 10/25/24 12:29 Insulin Glargine 100 Units/1 Ml SUBCUT Not Given DAILY SEEMA Insulin Human Lispro 0 unit 10/24/24 18:00 10/25/24 12:28 Insulin Lispro 100 Unit/1 Ml SUBCUT 16 unit WM&BEDTIME SEEMA Administration Protocol Ipratropium [place] 0.5 mg 10/24/24 20:00 10/25/24 13:10 Ipratropium 0.5 Mg/2.5 Ml Neb INHALATION 0.5 mg Q6H.RESP SEEMA Administration Isosorbide Mononitrate 30 mg 10/25/24 09:00 10/25/24 09:57 Isosorbide Mononitrate Er 30 Mg Tablet PO 30 mg DAILY SEEMA Administration Levalbuterol HCl 0.63 mg 10/24/24 20:00 10/25/24 13:10 Levalbuterol 0.63 Mg/3 Ml Neb INHALATION 0.63 mg Q6H.RESP SEEMA Administration Losartan Potassium 100 mg 10/25/24 09:00 10/25/24 09:57 Losartan 50 Mg Tablet PO 100 mg DAILY SEEMA Administration Morphine Sulfate 2 mg 10/24/24 17:34 10/25/24 13:31 Morphine 4 Mg/Ml Sdv 1 Ml IVP 2 mg Q4H PRN Administration SEVERE PAIN Pantoprazole Sodium 40 mg 10/24/24 17:00 10/25/24 04:51 Pantoprazole 40 Mg Sdv IVP 40 mg Q12H SEEMA Administration PFSH Acute 2 PFSH: Medical History Back pain GERD (gastroesophageal reflux disease) Myocardial infarction Hypercholesterolemia Sarcoidosis Peripheral neuropathy Osteoarthritis Azotemia Hypertension Diabetes Chronic systolic (congestive) heart failure COPD (chronic obstructive pulmonary disease) [place] type 2a hyperlipoproteinemia Type 2 diabetes mellitus without complication Cerebrovascular accident Arteriosclerosis of coronary artery bypass graft Surgical History Hx of CABG Family History Mother Cancer Father Diabetes Brother Psychiatric illness Social History Smoking and tobacco/nicotine status: never used tobacco/nicotine Vitals/I&O/Wt Last Vital Signs Temp 98.0 F 10/25/24 12:00 Pulse 98 10/25/24 13:10 Resp 15 10/25/24 13:31 BP 93/52 10/25/24 12:00 Pulse Ox 95 10/25/24 13:31 O2 Del Method Room Air 10/25/24 13:10 O2 Flow Rate 2 10/25/24 02:00 10/25/24 10/25/24 10/25/24 06:59 14:59 22:59 Intake Total 480 / 480 240 / 240 Output Total 1150 / 1150 Balance 480 / 480 -910 / -910 Weight last 48 hrs Weight 220 lb Physical Exam 2 Const: COMMON NORMALS: no acute distress and patient oriented x3 GENERAL APPEARANCE: cooperative and comfortable ORIENTATION/CONSCIOUSNESS: Yes awake, Yes oriented to person, Yes oriented to place and Yes oriented to time Chest: COMMONS NORMALS: normal inspection of the chest and normal palpation of entire chest wall CHEST: Yes Symmetrical chest wall rise Resp: COMMON NORMALS: normal respiratory effort, No retractions, No use of accessory muscles and clear to auscultation bilaterally EFFORT & INSPECTION: Yes symmetric chest movement AUSCULTATION: clear to auscultation bilaterally Cardio: COMMON NORMALS: regular rate, regular rhythm, S1 normal heart sound present, S2 normal heart sound present, No gallops present (Cardio), No clicks present (Cardio), No murmurs present (Cardio) and No rub (Cardio) RATE: r egular rate RHYTHM: regular rhythm HEART SOUNDS: S1 normal heart sound present and S2 normal heart sound present PERIPHERAL PULSES: radial pulses present Extremity: GENERAL: Yes edema (trace to 1+ pitting edema bilat LE below knee) Neuro: COMMON NORMALS: patient oriented x3 and moves all extremities S ENSORIUM/ORIENTATION: Yes oriented to person, Yes oriented to place and Yes oriented to time Urinary Catheter Management: Pope: Cath Placed During This Visit: yes Reason for Continuing Indwelling Catheter: Accurate Measurement of Urinary Output in Critically Ill Patients Urinary Catheter Date of Insertion: 10/24/24 Urinary Catheter Time of Insertion: 22:06 Data 10/25/24 02:55 10/25/24 02:55 Micro: Microbiology 10/24/24 15:21 Bacterial Antigens - Final Urine Kidney 10/24/24 16:33 Blood Culture - Preliminary Blood SPECIMEN COLLECTED 10/24/24 16:29 Blood Culture - Preliminary Blood SPECIMEN COLLECTED A&P Assessment and plan (1) Hypertension: Qualifiers: Hypertension type: primary hypertension Qualified Code(s): I10 - Essential (primary) hypertension (2) Chronic systolic (congestive) heart failure: (3) Arteriosclerosis of coronary artery bypass graft: Qualifiers: [place] vs. transplanted heart: [place] heart Associated angina: without angina Qualified Code(s): I25.810 - Atherosclerosis of coronary artery bypass graft(s) without angina pectoris (4) Cardiomyopathy: (5) Moderate aortic stenosis: (6) Diabetes: Qualifiers: Diabetes mellitus type: type 2 Diabetes mellitus assisted insulin use: without exterminator helper termite use Diabetes mellitus complication status: without complication Qualified Code(s): E11.9 - Type 2 diabetes mellitus without complications Plan We do not have any documentation of his EF post CABG, and the patient does not recall. Given that his ejection fraction is 30% with some troponin elevation he will need ischemic workup. He is willing to have coronary angiogram here, we discussed risks and benefits including stroke, bleeding, contrast-induced nephropathy. He has not had any bloody stool to suggest GI bleed, and we do not have any data in the last 10 years to compare. Suggest checking CBC tomorrow and if continuing to decrease, he will need GI workup and transfusion prior to coronary angiography. Continue losartan, carvedilol, aspirin, atorvastatin, Protonix, isosorbide mononitrate. PDMP PDMP Reviewed: Not Reviewed Coding Level of Care Code Acute Code for Chg Fwd Diagnoses Primary hypertension I10 Hypertension type: primary hypertension Chronic systolic (congestive) heart failure I50.22 Atherosclerosis of coronary artery bypass graft of [place] heart without angina pectoris I25.810 [place] vs. transplanted heart: [place] heart Associated angina: without angina Cardiomyopathy I42.9 Moderate aortic stenosis I35.0 Type 2 diabetes mellitus without complication, without long-term current use of insulin E11.9 Diabetes mellitus type: type 2 Diabetes mellitus assisted insulin use: without exterminator helper termite use Diabetes mellitus complication status: without complication
[2024-10-25] MEDS: cefTRIAXone 1,000 mg SDV 1000 MG IVP (17:05)
[2024-10-25] MEDS: cetylpyridinium Lozenge 1 EACH MUCOUS MEM (17:15)
[2024-10-25] MEDS: acetaminophen 325 mg Tablet 650 MG PO (18:11)
[2024-10-25 20:08] LABS: MRSA PCR OZH (swab) NOT DETECTED (Negative)
--- NOTE | 2024-10-25 21:09 | PC.NURSE ---
blood glucose was taken, system did not cross over, BG was 448, 16 units of insulin given based on BG of 448
[2024-10-26] VITALS (27 sets, daily range): BP systolic 91–127; BP diastolic 51–69; PULSE 64–92; RESP 12–24; TEMP 36.3–36.7; O2SAT 95–100
[2024-10-26] MEDS: levalbuterol 0.63 mg/3 mL Neb INHALATION ×3 (02:42→20:33)
[2024-10-26] MEDS: ipratropium 0.5 mg/2.5 mL Neb INHALATION ×3 (02:43→20:34)
[2024-10-26 03:29] LABS: Basophils % 0.1 %; Hematocrit 25.6 % (37-53); Lymphocytes # 0.8 10^3/uL (0.8-4.8); Lymphocytes % 7.3 %; Mean Corpuscular HGB Conc 26.2 g/dL (30-55); Mean Corpuscular Hemoglobin 16.8 pg (27-33); Monocytes # 1.1 10^3/uL (0.2-0.9); Monocytes % 9.3 %; Neutrophils # 9.56 10^3/uL (1.8-7.7); Neutrophils % 82.6 %; Nucleated Red Blood Cells % 0 %; Platelet Count 199 10^3/cmm (157-399); Red Cell Distribution Width 18.4 % (12.1-15.1); White Blood Count 11.57 10^3/uL (3.29-11.43)
[2024-10-26 03:46] LABS: Alanine Aminotransferase 9 U/L (0-41); Albumin Level 3.2 g/dL (3.5-5.2); Alkaline Phosphatase 73 U/L (40-130); Anion Gap 17.3 (5-19); Aspartate Amino Transferase 8 U/L (0-40); Blood Urea Nitrogen 41 mg/dL (8-23); Calcium 8.7 mg/dL (8.5-10.5); Carbon Dioxide 24 mmol/L (22-29); Chloride 100 mmol/L (98-107); Creatinine Clr Calc Pharmacy 51.2903; Globulin 2.1 g/dL (1.3-4.6); Glomerular Filtration Rate 38.3 mL/min (90-130); Glucose 339 mg/dL (65-115); Magnesium 2.4 mg/dL (1.7-2.3); Osmolality Calculated 307 mOsm/kg (285-295); Phosphorus 5.1 mg/dL (2.5-4.5); Potassium 4.3 mmol/L (3.5-5.1); Sodium 137 mmol/L (136-145); Total Bilirubin 0.5 mg/dL (0.15-1.2); Total Protein 5.3 g/dL (6.6-8.7)
[2024-10-26 05:07] LABS: Hematocrit 25.9 % (37-53)
[2024-10-26] MEDS: pantoprazole 40 mg SDV IVP ×2 (05:13→16:00)
--- NOTE | 2024-10-26 06:19 | PC.NURSE ---
Received call from [facility] stating PRBCs were ready for sisal picker, Patient went for stress test at 0617, will pass along to next shift about transfusion.
[2024-10-26] MEDS: regadenoson 0.4 Mg/5 ml Syringe IVP (06:53)
--- NOTE | 2024-10-26 07:22 | PC.NURSE ---
Patient off the floor to [facility]. Will transfuse 1 unit PRBC upon return.
[2024-10-26] MEDS: losartan 50 mg Tablet 100 MG PO (08:25)
[2024-10-26] MEDS: gabapentin 100 mg Capsule 200 MG PO ×2 (08:25→17:33)
[2024-10-26] MEDS: azithromycin 250 mg Tablet 500 MG PO (08:25)
[2024-10-26] MEDS: carvedilol 25 mg Tablet PO (08:25)
[2024-10-26] MEDS: atorvastatin 40 mg Tablet PO (08:25)
[2024-10-26] MEDS: amiodarone 200 mg Tablet 400 MG PO ×2 (08:25→17:33)
[2024-10-26] MEDS: isosorbide mononitrate ER 30 mg Tablet PO (08:25)
[2024-10-26] MEDS: docusate sodium 100 mg Capsule PO (08:25)
[2024-10-26] MEDS: insulin glargine 100 units/1 mL 75 UNIT SUBCUT (08:26)
[2024-10-26] MEDS: predniSONE 20 mg Tablet 40 MG PO (08:26)
[2024-10-26] MEDS: aspirin 81 mg EC Tablet PO (08:26)
[2024-10-26] MEDS: insulin lispro 100 unit/1 mL SUBCUT ×4 (08:42→21:15)
--- NOTE | 2024-10-26 08:59 | PC.NURSE ---
Dr Neri into see patient. Plan for colonoscoppy in am. Received instruction to have patient on clear liquid diet today and NPO after midnight.
[2024-10-26 09:05] LABS: Glucose Point of Care 330 mg/dL (70-110)
--- NOTE | 2024-10-26 09:54 | PM.CONSULT ---
Providers/Reason For Consult Consulting Physician/Specialty*: General Surgery Reason for Consult*: GI bleed Attending Physician: Rustam Contreras MD Primary Care Provider: Blayne Desai MD History of Present Illness History of Present Illness Owen Ann is a 64 year old male who is currently being worked up for cardiac ischemia and cardiomyopathy. He has also noted to have anemia, I have been requested to do a evaluation for EGD and colonoscopy before patient gets cardiac procedures as he may require long-term anticoagulation after this. According to the patient he has never had a colonoscopy. No current abdominal pain but about a month ago he had a sudden severe pain in the right side and since then he has been having diarrhea. No nausea or vomit, has not really seen any significant blood in the stool. Medications/Allergies Home Medications ?Medication ?Instructions ?Recorded ?Confirmed ?Last Taken ?Type albuterol sulfate 2.5 mg/3 mL 2.5 mg inhalation Q4H PRN 07/05/21 10/24/24 Unknown History (0.083 %) solution for nebulization Shortness Of Breath Or Wheezing aspirin 81 mg tablet,delayed 81 mg PO DAILY 07/05/21 10/24/24 10/23/24 History release (Adult Aspirin Regimen) atorvastatin 40 mg tablet 40 mg PO DAILY 07/05/21 10/24/24 10/23/24 History carvedilol 25 mg tablet 25 mg PO BID 07/05/21 10/24/24 10/23/24 History fluticasone 250 mcg-salmeterol 50 1 inh inhalation BID 07/05/21 10/24/24 10/23/24 History mcg/dose blistr powdr for inhalation (Wixela Inhub) furosemide 80 mg tablet 80 mg PO BID 07/05/21 10/24/24 10/23/24 History gabapentin 100 mg capsule 200 mg PO BID 07/05/21 10/24/24 10/23/24 History guaifenesin 1,200 mg tablet, 1,200 mg PO BID 07/05/21 10/24/24 Unknown History extended release 12 hr (Mucinex) ipratropium 0.5 mg-albuterol 3 mg 3 ml inhalation QID PRN Shortness 07/05/21 10/24/24 Unknown History (2.5 mg base)/3 mL nebulization Of Breath Or Wheezing soln isosorbide mononitrate 30 mg 30 mg PO DAILY 07/05/21 10/24/24 10/23/24 History tablet,extended release 24 hr valsartan 320 mg tablet 320 mg PO DAILY 07/05/21 10/24/24 10/23/24 History albuterol sulfate 90 mcg/actuation 2 puff inhalation Q4H PRN 06/15/23 10/24/24 Unknown History aerosol inhaler (Ventolin HFA) Shortness Of Breath Or Wheezing blood sugar diagnostic (OneTouch 06/15/23 10/24/24 Unknown History Verio test strips) glyburide 5 mg tablet 10 mg PO BID 06/15/23 10/24/24 10/23/24 History insulin aspart U-100 100 unit/mL 25 unit SUBCUT TID 06/15/23 10/24/24 10/23/24 History (3 mL) subcutaneous pen (Novolog FlexPen U-100 Insulin aspart) insulin glargine 100 unit/mL 75 unit SUBCUT DAILY 06/15/23 10/24/24 10/23/24 History subcutaneous solution (Lantus U-100 Insulin) pen needle, diabetic 31 gauge x 06/15/23 10/24/24 Unknown History 3/16 (TechLITE Pen Needle) pen needle, diabetic 32 gauge x 06/15/23 10/24/24 Unknown History (TechLITE Pen Needle) tramadol 50 mg tablet 50 mg PO Q6H PRN chronic pain 06/15/23 10/24/24 10/23/24 History fluticasone propionate 50 1 spray intranasal DAILY 10/24/24 10/24/24 Unknown History mcg/actuation nasal spray,suspension Allergies Allergy/AdvReac Type Severity Reaction Status Date / Time lisinopril AdvReac cough Verified 10/24/24 12:27 Current Medications Generic Name Dose Route Start Last Admin Trade Name Freq PRN Reason Stop Dose Admin Acetaminophen 650 mg 10/24/24 17:34 10/25/24 18:11 Acetaminophen 325 Mg Tablet PO 650 mg Q6H PRN Administration Mild/Mod Pain Or Temp >/= 101 Amiodarone HCl 400 mg 10/25/24 12:50 10/26/24 08:25 Amiodarone 200 Mg Tablet PO 400 mg BID SEEMA Administration Aspirin 81 mg 10/25/24 09:00 10/26/24 08:26 Aspirin 81 Mg Ec Tablet PO 81 mg DAILY SEEMA Administration Atorvastatin Calcium 40 mg 10/25/24 09:00 10/26/24 08:25 Atorvastatin 40 Mg Tablet PO 40 mg DAILY SEEMA Administration Azithromycin 500 mg 10/25/24 09:00 10/26/24 08:25 Azithromycin 250 Mg Tablet PO 500 mg DAILY SEEMA Administration Protocol Benzocaine 1 each 10/25/24 16:55 10/25/24 17:15 Cetylpyridinium Lozenge MUCOUS MEM 1 each Q2H PRN Administration SORE THROAT Budesonide 0.5 mg 10/24/24 20:00 10/26/24 07:42 Budesonide 0.5 Mg/2 Ml Neb INHALATION Not Given BID.RESPIRATORY SEEMA Carvedilol 25 mg 10/24/24 18:00 10/26/24 08:25 Carvedilol 25 Mg Tablet PO 25 mg BID SEEMA Administration Ceftriaxone Sodium 1,000 mg 10/25/24 16:00 10/25/24 17:05 Ceftriaxone 1,000 Mg Sdv IVP 1,000 mg Q24H SEEMA Administration Protocol Docusate Sodium 100 mg 10/24/24 18:00 10/26/24 08:25 Docusate Sodium 100 Mg Capsule PO 100 mg BID SEEMA Administration Furosemide 40 mg 10/25/24 09:00 10/26/24 08:26 Furosemide 10 Mg/Ml Sdv 4ml IVP 40 mg Q12H SEEMA Administration Gabapentin 200 mg 10/24/24 18:00 10/26/24 08:25 Gabapentin 100 Mg Capsule PO 200 mg BID SEEMA Administration Insulin Glargine 75 unit 10/25/24 09:00 10/26/24 08:26 Insulin Glargine 100 Units/1 Ml SUBCUT 75 unit DAILY SEEMA Administration Insulin Human Lispro 0 unit 10/24/24 18:00 10/26/24 08:42 Insulin Lispro 100 Unit/1 Ml SUBCUT 12 unit WM&BEDTIME SEEMA Administration Protocol Ipratropium [place] 0.5 mg 10/24/24 20:00 10/26/24 07:42 Ipratropium 0.5 Mg/2.5 Ml Neb INHALATION Not Given Q6H.RESP SEEMA Isosorbide Mononitrate 30 mg 10/25/24 09:00 10/26/24 08:25 Isosorbide Mononitrate Er 30 Mg Tablet PO 30 mg DAILY SEEMA Administration Levalbuterol HCl 0.63 mg 10/24/24 20:00 10/26/24 07:42 Levalbuterol 0.63 Mg/3 Ml Neb INHALATION Not Given Q6H.RESP SEEMA Losartan Potassium 100 mg 10/25/24 09:00 10/26/24 08:25 Losartan 50 Mg Tablet PO 100 mg DAILY SEEMA Administration Morphine Sulfate 2 mg 10/24/24 17:34 10/25/24 13:31 Morphine 4 Mg/Ml Sdv 1 Ml IVP 2 mg Q4H PRN Administration SEVERE PAIN Pantoprazole Sodium 40 mg 10/24/24 17:00 10/26/24 05:13 Pantoprazole 40 Mg Sdv IVP 40 mg Q12H SEEMA Administration Prednisone 40 mg 10/26/24 09:00 10/26/24 08:26 Prednisone 20 Mg Tablet PO 40 mg DAILY SEEMA Administration PFSH Acute PFSH: Medical History Back pain GERD (gastroesophageal reflux disease) Myocardial infarction Hypercholesterolemia Sarcoidosis Peripheral neuropathy Osteoarthritis Azotemia Hypertension Diabetes Chronic systolic (congestive) heart failure COPD (chronic obstructive pulmonary disease) [place] type 2a hyperlipoproteinemia Type 2 diabetes mellitus without complication Cerebrovascular accident Arteriosclerosis of coronary artery bypass graft Surgical History Hx of CABG Family History Mother Cancer Father Diabetes Brother Psychiatric illness Social History Smoking and tobacco/nicotine status: never used tobacco/nicotine Vitals/I&O/Wt Last Vital Signs Temp 97.7 F 10/26/24 09:47 Pulse 82 10/26/24 09:47 Resp 24 H 10/26/24 09:47 BP 127/66 10/26/24 09:47 Pulse Ox 100 10/26/24 08:53 O2 Del Method Room Air 10/26/24 07:52 O2 Flow Rate 2 10/26/24 02:00 10/25/24 10/26/24 10/26/24 22:59 06:59 14:59 Intake Total 120 / 360 420 / 420 Output Total 650 / 1800 300 / 2100 Balance -530 / -1440 -300 / -1740 420 / 420 Weight last 48 hrs Weight 246 lb 4.8 oz Weight 242 lb Weight 220 lb Physical Exam GI: OTHER: Abdomen soft nontender nondistended. Urinary Catheter Management: Pope: Cath Placed During This Visit: yes Reason for Continuing Indwelling Catheter: Accurate Measurement of Urinary Output in Critically Ill Patients Urinary Catheter Date of Insertion: 10/24/24 Urinary Catheter Time of Insertion: 22:06 Data 10/26/24 04:59 10/26/24 03:13 Micro: Microbiology 10/24/24 16:33 Blood Culture - Preliminary Blood NEGATIVE TO DATE 10/24/24 16:29 Blood Culture - Preliminary Blood NEGATIVE TO DATE 10/24/24 15:21 Bacterial Antigens - Final Urine Kidney A&P Assessment and plan (1) Iron deficiency anemia: Plan After a complete history, physical examination and review of all available clinical data. I have offer screening colonoscopy as indicated by the current guidelines and a diagnostic upper endoscopy. I have discussed all the risks and benefits of the endoscopy. Including, the risk of perforation of the esophagus, stomach, duodenum or colon requiring surgical intervention and ostomy creation, rectal bleeding, incomplete colonoscopy in one of every 20 patients requiring repat endoscopy in 1 year, missed polyps, need for additional procedures. Patient shows understanding and wishes to proceed. Endoscopy will be booked for tomorrow and patient will receive bowel prep today. PDMP PDMP Reviewed: Not Reviewed Coding Level of Care Code Acute Code for Chg Fwd Diagnoses Iron deficiency anemia D50.9
[2024-10-26 11:44] LABS: Glucose Point of Care 346 mg/dL (70-110)
--- NOTE | 2024-10-26 11:44 | PC.NURSE ---
Patient's BP is decreasing post blood transfusion. Informed Dr Contreras. Received orders to not give Lasix until 2nd unit is given.
--- NOTE | 2024-10-26 12:47 | P.PN_ITS ---
Subjective 2 Subjective: No acute events overnight. Patient denies any chest pain or difficulty in breathing. Remains on room air. Seen sitting up in bed at the edge today. Denies any nausea, vomiting, headache. Underwent cardiac stress test today. Denies having any bowel movements. Vitals/I&O/Wt Last Vital Signs Temp 97.8 F 10/26/24 11:05 Pulse 92 10/26/24 12:00 Resp 21 H 10/26/24 12:00 BP 108/65 10/26/24 12:00 Pulse Ox 95 10/26/24 12:00 O2 Del Method Room Air 10/26/24 12:00 O2 Flow Rate 2 10/26/24 02:00 10/25/24 10/26/24 10/26/24 22:59 06:59 14:59 Intake Total 120 / 360 770 / 770 Output Total 650 / 1800 300 / 2100 Balance -530 / -1440 -300 / -1740 770 / 770 Weight last 48 hrs Weight 111.72 kg Weight 109.769 kg Physical Exam 2 Narrative: General: No acute distress, AO x3, Pallor present, chronically sick appearing HEENT: PERRLA, pupils bilaterally equal and reactive Chest: Normal vesicular breath sounds, no added sounds, equal good air entry bilaterally CVS: S1-S2 regular, pansystolic murmur present at apex, tachycardia, no gallops, no rubs Abdomen: Soft, nontender, no organomegaly, bowel sounds present Neuro: No focal deficits, no facial deformity, AO x3, power 5/5 in all limbs Urinary Catheter Management: Pope: Cath Placed During This Visit: yes Reason for Continuing Indwelling Catheter: Accurate Measurement of Urinary Output in Critically Ill Patients Urinary Catheter Date of Insertion: 10/24/24 Urinary Catheter Time of Insertion: 22:06 Data 10/26/24 04:59 10/26/24 03:13 Micro: Microbiology 10/24/24 16:33 Blood Culture - Preliminary Blood NEGATIVE TO DATE 10/24/24 16:29 Blood Culture - Preliminary Blood NEGATIVE TO DATE 10/24/24 15:21 Bacterial Antigens - Final Urine Kidney A&P Assessment and plan (1) Hypoxia: Resolved. Most likely a combination of congestive heart failure along with COPD exacerbation. More so because of congestive heart failure. Does have history of sarcoidosis in the past. Cannot rule out pneumonia though less likely given CT changes. Oxygen supplementation keeping saturation over 88%. Aggressive pulmonary toilet with I-S and Acapella. COVID-19/RSV/influenza negative in ER. Sputum culture not collected yet. CTA negative for pulmonary embolism. (2) Chronic systolic (congestive) heart failure: Echocardiogram done today shows an EF of 30% with global LV hypokinesia, moderate MR, moderate aortic valve stenosis with mean gradient of 3.5 mmHg, mild MR, severe TR. Fluid restriction to less than 1500 cc. Continue with IV Lasix 40 mg twice daily. Strict input output charting, daily weights. (3) Arteriosclerosis of coronary artery bypass graft: Appreciate echocardiogram as above. Cannot rule out ACS in setting of cardiomyopathy. As patient remains chest pain-free, has history of anemia for now we will hold off on full dose anticoagulation. Appreciate cardiology recommendations. Plan for cardiac angiogram was deferred given low hemoglobin today. Underwent Lexiscan stress test. Results awaited. Patient had CABG in 2012. 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 Continue with home dose of aspirin, statin, beta-edna, Imdur. Appreciate A1c, lipid panel. Qualifiers: Associated angina: without angina [place] vs. transplanted heart: [place] heart Qualified Code(s): I25.810 - Atherosclerosis of coronary artery bypass graft(s) without angina pectoris (4) Cardiomyopathy: Found to have EF of 30%. Concern for ischemic cardiomyopathy given history of CABG. Lexiscan stress test as above. Patient is already on guideline directed medical therapy with carvedilol 25 mg twice daily, ARB. Having frequent VPCs. Continue with amiodarone for 100 mg twice daily. Will discuss with cardiology regarding possible need for LifeVest. (5) COPD (chronic obstructive pulmonary disease): Pulmicort twice daily, ipratropium, Xopenex every 6 hour. Continue with Solu-Medrol to prednisone 40 mg oral daily for overall 5 days. (6) Hypertension: Goal blood pressure less than 140/90 mmHg with mean over 65. Soft today. Hold losartan and imdur for now. Decrease coreg to 12.5 mg BID Patient continues to remain tachycardic with occasional VPCs. Given cardiomyopathy with EF 30% for now we will C/w amiodarone 400 mg twice daily for loading. Will plan for switching down to 200 mg twice daily in 1 week followed by 200 mg once daily in 1 week. Qualifiers: Hypertension type: primary hypertension Qualified Code(s): I10 - Essential (primary) hypertension (7) Type 2 diabetes mellitus without complication: A1c of 8 Switch to Lantus 40 units twice daily. C/w insulin sliding scale at moderate dose protocol. 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 Sputum culture awaited. MRSA swab pending. Bacterial antigen negative. Patient does not have any leukocytosis. Afebrile for now. Empirically continue with IV ceftriaxone and oral azithromycin to cover for community-acquired pneumonia for now. (9) Pleural effusion: (10) Moderate mitral valve regurgitation: (11) Moderate aortic stenosis: (12) Sarcoidosis: Check angiotensin levels. (13) Iron deficiency anemia: Anemia: Hemoglobin ulisses to 6.8. Stool for occult blood pending. Transfuse 2 units of PRBC. [place] Hb over 8. Will consult Sx for EGD and colonoscopy. Patient is agreeable. IV Protonix 40 mg twice daily. Plan SANDRA: Creatinine up to 1.8 today. Most likely in setting of anemia. Hold off on losartan as above. Monitor BMP in afternoon. Getting blood transfusion as above. Continue with Lasix to prevent congestive heart failure as patient is getting 2 units of blood transfusion today. CODE STATUS: Sister is DPOA. Full code. Cardiac carb consistent diet Protonix to be sufficient for PUD prophylaxis SCD for DVT prophylaxis given anemia. PDMP PDMP Reviewed: Not Reviewed Attestations 2 Medical Necessity Statement*: Requires further hospitalization for management of acute on chronic anemia requiring blood transfusion, further workup with EGD and colonoscopy, congestive heart failure with EF now 30% while ACS is worked up Diagnoses Hypoxia R09.02 Chronic systolic (congestive) heart failure I50.22 Atherosclerosis of coronary artery bypass graft of [place] heart without angina pectoris I25.810 Associated angina: without angina [place] vs. transplanted heart: [place] heart Cardiomyopathy I42.9 COPD (chronic obstructive pulmonary disease) J44.9 Primary hypertension I10 Hypertension type: primary hypertension Type 2 diabetes mellitus without complication, with long-term current use of insulin E11.9; Z79.4 Diabetes mellitus halfway insulin use: with halfway use Consolidation lung J18.1 Pleural effusion J90 Moderate mitral valve regurgitation I34.0 Moderate aortic stenosis I35.0 Sarcoidosis D86.9 Iron deficiency anemia D50.9
--- NOTE | 2024-10-26 12:49 | NMCV_ITS ---
NM geeta perf SPECT r/s* [id number] Owen Ann Age: 64 Gender: M : 1960 Exam Date: 10/26/2024 06:15 Ordering Phys: Rustam Contreras MD Technologist: SUELLEN Nicholson Exam Location: [facility] Indications: cp STRESS TEST Please see separate stress test report in [facility] for full findings IMAGE PROTOCOL Rest/Stress 1 Lexiscan Day Radiopharmaceutical Dose (mCi) Administration Site Administered by Rest: Tc-99m 10.9 IV SUELLEN Marie Sestamibi Stress:Tc-99m 32.8 IV SUELLEN Nicholson Sestamibrenda Rest: 26-Oct-2024 60 Discovery 630 Stress: 26-Oct-2024 30 Discovery 630 0.4mg Lexiscan. Supine position only as patient was unable to lay prone. SPECT RESULTS Technical Quality: Good Raw Data Analysis: Normal Image Corrections: No attenuation or motion correction applied Summed Stress Score: 25 Summed Rest Score: 28 Summed Difference Score: 1 PERFUSION FINDINGS Large area of fixed perfusion defect noted in basal to distal inferior basal to mid inferolateral and basal to distal anterolateral wall on both rest and stress images suggestive of old myocardial infarction in LAD and possible dominant circumflex territory. There is no luis-infarct ischemia noted. This study is negative for ischemia and suggestive of old myocardial infarction. FUNCTIONAL RESULTS (calculated via Gated SPECT) Stress Image LV EF (%): 37 Stress EDV (mL):218 TID: 1.09 Stress ESV (mL):138 FUNCTIONAL FINDINGS: There is lateral and inferior wall akinesis. IMPRESSIONS Large area of fixed perfusion defect noted in basal to distal inferior basal to mid inferolateral and basal to distal anterolateral wall on both rest and stress images suggestive of old myocardial infarction in LAD and possible dominant circumflex territory. There is no luis-infarct ischemia noted. This study is negative for ischemia and suggestive of old myocardial infarction. Ibis Grajeda MD (Electronically Signed) Final Date: 26 October 2024 12:03 S
[2024-10-26] MEDS: magnesium citrate Btl 296 mL PO ×2 (13:14→21:14)
--- NOTE | 2024-10-26 14:55 | P.PN_ITS ---
<Statement entered by Abilio Perdomo M.D - 10/28/24 21:23> Patient was evaluated and cared for in conjunction with an advanced practice practitioner. I personally examined the patient and reviewed the chart and all pertinent data including imaging, telemetry, and laboratory results. I discussed the patient in detail with the advanced practice practitioner. Please see their note for complete progress note, results and agreed upon plan of care for the patient. GENERAL: Patient is alert and oriented HEART: Regular S1 and S2 LUNGS: Clear to auscultation bilaterally EXTREMITIES: Lower extremities with no edema Subjective 2 Subjective: No chest pain overnight. Hemoglobin 6.8 with morning labs. He is receiving blood transfusion currently. He had a Lexiscan stress test this morning: Large fixed defect in the LAD possibly dominant circumflex territory. No ischemia noted. He will require GI workup to determine source of anemia. Creatinine is 1.8 today, up from 1.2 yesterday. Vitals/I&O/Wt Last Vital Signs Temp 97.7 F 10/26/24 14:44 Pulse 71 10/26/24 14:44 Resp 18 10/26/24 13:44 BP 111/59 10/26/24 14:44 Pulse Ox 99 10/26/24 14:44 O2 Del Method Room Air 10/26/24 12:59 O2 Flow Rate 2 10/26/24 02:00 10/25/24 10/26/24 10/26/24 22:59 06:59 14:59 Intake Total 120 / 360 1450 / 1450 Output Total 650 / 2100 300 / 2100 Balance -530 / -1740 -300 / -1740 1450 / 1450 Weight last 48 hrs Weight 246 lb 4.8 oz Weight 242 lb Physical Exam 2 Const: COMMON NORMALS: no acute distress and patient oriented x3 GENERAL APPEARANCE: cooperative and comfortable ORIENTATION/CONSCIOUSNESS: Yes awake, Yes oriented to person, Yes oriented to place and Yes oriented to time Chest: COMMONS NORMALS: normal inspection of the chest and normal palpation of entire chest wall CHEST: Yes Symmetrical chest wall rise Resp: COMMON NORMALS: normal respiratory effort, No retractions, No use of accessory muscles and clear to auscultation bilaterally EFFORT & INSPECTION: Yes symmetric chest movement AUSCULTATION: clear to auscultation bilaterally Cardio: COMMON NORMALS: regular rate, regular rhythm, S1 normal heart sound present, S2 normal heart sound present, No gallops present (Cardio), No clicks present (Cardio), No murmurs present (Cardio) and No rub (Cardio) RATE: r egular rate RHYTHM: regular rhythm HEART SOUNDS: S1 normal heart sound present and S2 normal heart sound present PERIPHERAL PULSES: radial pulses present Extremity: COMMON NORMALS: no pedal edema Neuro: COMMON NORMALS: patient oriented x3 and moves all extremities S ENSORIUM/ORIENTATION: Yes oriented to person, Yes oriented to place and Yes oriented to time Urinary Catheter Management: Pope: Cath Placed During This Visit: yes Reason for Continuing Indwelling Catheter: Accurate Measurement of Urinary Output in Critically Ill Patients Urinary Catheter Date of Insertion: 10/24/24 Urinary Catheter Time of Insertion: 22:06 Data 10/26/24 04:59 10/26/24 03:13 Micro: Microbiology 10/24/24 16:33 Blood Culture - Preliminary Blood NEGATIVE TO DATE 10/24/24 16:29 Blood Culture - Preliminary Blood NEGATIVE TO DATE 10/24/24 15:21 Bacterial Antigens - Final Urine Kidney A&P Assessment and plan (1) Chronic systolic (congestive) heart failure: (2) Arteriosclerosis of coronary artery bypass graft: Qualifiers: [place] vs. 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 Continue carvedilol, recommend switching valsartan to Entresto 49/51 mg twice daily once creatinine has stabilized. PDMP PDMP Reviewed: Not Reviewed Attestations 2 Medical Necessity Statement*: significant anemia, GI workup, medical management systolic CHF Coding Level of Care Code Acute Code for [facility] Fwd Diagnoses Chronic systolic (congestive) heart failure I50.22 Atherosclerosis of coronary artery bypass graft of [place] heart without angina pectoris I25.810 [place] vs. 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
[2024-10-26 16:01] LABS: Glucose Point of Care 286 mg/dL (70-110)
[2024-10-26] MEDS: bisacodyl 5 mg Tablet 15 MG PO (16:03)
[2024-10-26] MEDS: cefTRIAXone 1,000 mg SDV 1000 MG IVP (16:04)
--- NOTE | 2024-10-26 16:12 | PC.NURSE ---
Per Dr Contreras Lasix not given today due to decrease in BP. Current SpO2 is 98% on room air. Will continue to monitor
[2024-10-26] MEDS: carvedilol 25 mg Tablet 12.5 MG PO (17:32)
[2024-10-26] MEDS: insulin glargine 100 units/1 mL 40 UNIT SUBCUT (17:33)
[2024-10-26 17:34] LABS: Blood Urea Nitrogen 48 mg/dL (8-23); Carbon Dioxide 22 mmol/L (22-29); Chloride 99 mmol/L (98-107); Creatinine Clr Calc Pharmacy 62.1048; Glomerular Filtration Rate 47.3 mL/min (90-130); Glucose 258 mg/dL (65-115); Osmolality Calculated 303 mOsm/kg (285-295); Sodium 136 mmol/L (136-145)
[2024-10-26] MEDS: budesonide 0.5 mg/2 mL Neb INHALATION (20:33)
[2024-10-26 21:03] LABS: Glucose Point of Care 298 mg/dL (70-110)
[2024-10-27] VITALS (18 sets, daily range): BP systolic 92–143; BP diastolic 50–76; PULSE 71–87; RESP 13–29; TEMP 36.3–36.9; O2SAT 94–100
[2024-10-27] MEDS: levalbuterol 0.63 mg/3 mL Neb INHALATION ×4 (02:16→20:08)
[2024-10-27] MEDS: ipratropium 0.5 mg/2.5 mL Neb INHALATION ×4 (02:16→20:08)
[2024-10-27] MEDS: pantoprazole 40 mg SDV IVP ×2 (04:41→17:19)
[2024-10-27 04:53] LABS: Basophils % 0.1 %; Hematocrit 32.3 % (37-53); Lymphocytes # 0.8 10^3/uL (0.8-4.8); Lymphocytes % 7.7 %; Mean Corpuscular HGB Conc 27.2 g/dL (30-55); Mean Corpuscular Hemoglobin 17.9 pg (27-33); Mean Corpuscular Volume 65.8 fl (82-101); Monocytes # 0.7 10^3/uL (0.2-0.9); Monocytes % 6.1 %; Neutrophils # 9.32 10^3/uL (1.8-7.7); Neutrophils % 85.5 %; Nucleated Red Blood Cells % 0 %; Platelet Count 181 10^3/cmm (157-399); Red Blood Count 4.91 10^6/uL (3.85-5.65); Red Cell Distribution Width 20.5 % (12.1-15.1)
[2024-10-27 05:23] LABS: Alanine Aminotransferase 13 U/L (0-41); Albumin Level 3.5 g/dL (3.5-5.2); Alkaline Phosphatase 65 U/L (40-130); Aspartate Amino Transferase 15 U/L (0-40); Blood Urea Nitrogen 41 mg/dL (8-23); Calcium 9.2 mg/dL (8.5-10.5); Carbon Dioxide 22 mmol/L (22-29); Chloride 100 mmol/L (98-107); Creatinine Clr Calc Pharmacy 62.1048; Globulin 2.1 g/dL (1.3-4.6); Glomerular Filtration Rate 47.3 mL/min (90-130); Glucose 181 mg/dL (65-115); Magnesium 3.5 mg/dL (1.7-2.3); Osmolality Calculated 299 mOsm/kg (285-295); Phosphorus 4.9 mg/dL (2.5-4.5); Sodium 137 mmol/L (136-145); Total Bilirubin 0.7 mg/dL (0.15-1.2); Total Protein 5.6 g/dL (6.6-8.7)
[2024-10-27 05:41] LABS: Anion Gap 18.4 (5-19); Potassium 3.4 mmol/L (3.5-5.1)
--- NOTE | 2024-10-27 05:46 | W.PM.OPSUD ---
Surgery/Procedure H&P Update DATE OF PROCEDURE: October 27, 2024 DATE H&P PERFORMED: 10/26/24 H&P UPDATE INFORMATION: I have reviewed H&P completed within last 30 days, I have examined patient prior to procedure, No changes to prior documentation and H&P is in [facility] EMR on date indicated PLANNED PROCEDURE: Operation Date: 10/26/24 10:00 Proposed Procedures p Cardiac Catheterization(Left) - Abilio Perdomo M.D Operation Date: 10/27/24 10:35 Proposed Procedures p EGD(Not Applicable) - Jerry Neri MD s egd and colonoscopy with possible biopsy and polypectomy(Not Applicable) - Jerry Neri MD
[2024-10-27 06:24] LABS: Glucose Point of Care 216 mg/dL (70-110)
[2024-10-27] MEDS: budesonide 0.5 mg/2 mL Neb INHALATION ×2 (07:49→20:08)
--- NOTE | 2024-10-27 08:08 | PC.NURSE ---
Holding am medications until after scope procedures per Dr Contreras
[2024-10-27] MEDS: iron sucrose 200 MG in sodium chloride 0.9% (100 ml) 100 ML 220 MG IV (08:55)
--- NOTE | 2024-10-27 09:49 | PC.NURSE ---
Patient off floor to GI lab.
[2024-10-27] MEDS: sodium chloride 0.9% 1,000 ML 30 ML IV (09:55)
--- NOTE | 2024-10-27 10:04 | ANES.PREANE2 ---
Pre-Anesthetic Assessment Height/Weight: Height 1.75 m Weight 117.934 kg Temp Pulse Resp BP Pulse Ox O2 Del Method O2 Flow Rate 97.4 F L 84 16 143/76 98 Room Air 2 10/27/24 09:42 10/27/24 09:42 10/27/24 09:42 10/27/24 09:42 10/27/24 09:42 10/27/24 09:42 10/26/24 02:00 Preop Diagnosis: Anemia Operation Date: 10/26/24 10:00 Proposed Procedures p Cardiac Catheterization(Left) - Abilio Perdomo M.D Operation Date: 10/27/24 10:35 Proposed Procedures p EGD(Not Applicable) - Jerry Neri MD s egd and colonoscopy with possible biopsy and polypectomy(Not Applicable) - Jerry Neri MD Familial anesthetic complications: none Was Beta Jitendra taken within 24 hours: Yes Was Clonidine taken within 24 hours: N/A Social No alcohol and No tobacco former Exam alert and oriented x 3 General ill appearance, pale, SOB at rest. Airway Dentition: chipped Comments: Comments: multiple missing/chipped Pulmonary Chronic Obstructive Pulmonary Disease CV/HEM Anemia, Coronary Artery Disease, Congestive Heart Failure, Hypertension, Myocardial Infarction and Murmur Global hypokinesis, life vest prescribed, SOB at rest, EF 30%, Moderate Ao stenosis valve area 2sm, mean gradient 3.5, magnesium 3.5 up from 2.4 , 4+ pitting edema BLE cr 1.4 Hepatic None reported GI Gastroesophageal Reflux Disease Anemia Metabolic Diabetes Mellitus, Hyperlipidemia and Morbid Obesity [facility] None reported Neuropsych Cerebrovascular Accident Anesthetic Plan ASA status: 4 Anesthesia: MAC Other: Discussed with Dr. Neri the significant risk of complications of this procedure, informed Kapil CLIENT SERVICES COORDINATOR of patient condition. Medications/Allergies Home Medications ?Medication ?Instructions ?Recorded ?Confirmed ?Last Taken ?Type albuterol sulfate 2.5 mg/3 mL 2.5 mg inhalation Q4H PRN 07/05/21 10/24/24 Unknown History (0.083 %) solution for nebulization Shortness Of Breath Or Wheezing aspirin 81 mg tablet,delayed 81 mg PO DAILY 07/05/21 10/24/24 10/23/24 History release (Adult Aspirin Regimen) atorvastatin 40 mg tablet 40 mg PO DAILY 1110/24/24 10/23/24 History carvedilol 25 mg tablet 25 mg PO BID 07/05/21 10/24/24 10/23/24 History fluticasone 250 mcg-salmeterol 50 1 inh inhalation BID 07/05/21 10/24/24 10/23/24 History mcg/dose blistr powdr for inhalation (Wixela Inhub) furosemide 80 mg tablet 80 mg PO BID 07/05/21 10/24/24 10/23/24 History gabapentin 100 mg capsule 200 mg PO BID 07/05/21 10/24/24 10/23/24 History guaifenesin 1,200 mg tablet, 1,200 mg PO BID 07/05/21 10/24/24 Unknown History extended release 12 hr (Mucinex) ipratropium 0.5 mg-albuterol 3 mg 3 ml inhalation QID PRN Shortness 07/05/21 10/24/24 Unknown History (2.5 mg base)/3 mL nebulization Of Breath Or Wheezing soln isosorbide mononitrate 30 mg 30 mg PO DAILY 07/05/21 10/24/24 10/23/24 History tablet,extended release 24 hr valsartan 320 mg tablet 320 mg PO DAILY 07/05/21 10/24/24 10/23/24 History albuterol sulfate 90 mcg/actuation 2 puff inhalation Q4H PRN 06/15/23 10/24/24 Unknown History aerosol inhaler (Ventolin HFA) Shortness Of Breath Or Wheezing blood sugar diagnostic (OneTouch 06/15/23 10/24/24 Unknown History Verio test strips) glyburide 5 mg tablet 10 mg PO BID 06/15/23 10/24/24 10/23/24 History insulin aspart U-100 100 unit/mL 25 unit SUBCUT TID 06/15/23 10/24/24 10/23/24 History (3 mL) subcutaneous pen (Novolog FlexPen U-100 Insulin aspart) insulin glargine 100 unit/mL 75 unit SUBCUT DAILY 06/15/23 10/24/24 10/23/24 History subcutaneous solution (Lantus U-100 Insulin) pen needle, diabetic 31 gauge x 06/15/23 10/24/24 Unknown History 11/06 (TechLITE Pen Needle) pen needle, diabetic 32 gauge x 06/15/23 10/24/24 Unknown History (TechLITE Pen Needle) tramadol 50 mg tablet 50 mg PO Q6H PRN chronic pain 06/15/23 10/24/24 10/23/24 History fluticasone propionate 50 1 spray intranasal DAILY 10/24/24 10/24/24 Unknown History mcg/actuation nasal spray,suspension Allergies Allergy/AdvReac Type Severity Reaction Status Date / Time lisinopril AdvReac cough Verified 10/24/24 12:27 Current Medications Generic Name Dose Route Start Last Admin Trade Name Freq PRN Reason Stop Dose Admin Acetaminophen 650 mg 10/24/24 17:34 10/25/24 18:11 Acetaminophen 325 Mg Tablet PO 650 mg Q6H PRN Administration Mild/Mod Pain Or Temp >/= 101 Amiodarone HCl 400 mg 10/25/24 12:50 10/26/24 17:33 Amiodarone 200 Mg Tablet PO 400 mg BID SEEMA Administration Aspirin 81 mg 10/25/24 09:00 10/26/24 08:26 Aspirin 81 Mg Ec Tablet PO 81 mg DAILY SEEMA Administration Atorvastatin Calcium 40 mg 10/25/24 09:00 10/26/24 08:25 Atorvastatin 40 Mg Tablet PO 40 mg DAILY SEEMA Administration Azithromycin 500 mg 10/25/24 09:00 10/26/24 08:25 Azithromycin 250 Mg Tablet PO 500 mg DAILY SEEMA Administration Protocol Benzocaine 1 each 10/25/24 16:55 10/25/24 17:15 Cetylpyridinium Lozenge MUCOUS MEM 1 each Q2H PRN Administration SORE THROAT Budesonide 0.5 mg 10/24/24 20:00 10/27/24 07:49 Budesonide 0.5 Mg/2 Ml Neb INHALATION 0.5 mg BID.RESPIRATORY SEEMA Administration Carvedilol 12.5 mg 10/26/24 18:00 10/26/24 17:32 Carvedilol 25 Mg Tablet PO 12.5 mg BID SEEMA Administration Ceftriaxone Sodium 1,000 mg 10/25/24 16:00 10/26/24 16:04 Ceftriaxone 1,000 Mg Sdv IVP 1,000 mg Q24H SEEMA Administration Protocol Docusate Sodium 100 mg 10/24/24 18:00 10/26/24 17:33 Docusate Sodium 100 Mg Capsule PO Not Given BID SEEMA Furosemide 40 mg 10/25/24 09:00 10/26/24 21:00 Furosemide 10 Mg/Ml Sdv 4ml IVP Not Given Q12H SEEMA Gabapentin 200 mg 10/24/24 18:00 10/26/24 17:33 Gabapentin 100 Mg Capsule PO 200 mg BID SEEMA Administration Iron Sucrose 200 mg/ Sodium 110 mls @ 220 mls/hr 10/27/24 09:00 10/27/24 08:55 Chloride IV 220 mls/hr Q24H SEEMA Administration Sodium Chloride 1,000 mls @ 30 mls/hr 10/27/24 10:00 10/27/24 09:55 Sodium Chloride 0.9% IV 30 mls/hr .Q24H SEEMA Administration Insulin Glargine 40 unit 10/26/24 18:00 10/26/24 17:33 Insulin Glargine 100 Units/1 Ml SUBCUT 40 unit BID SEEMA Administration Insulin Human Lispro 0 unit 10/24/24 18:00 10/26/24 21:15 Insulin Lispro 100 Unit/1 Ml SUBCUT 10 unit WM&BEDTIME SEEMA Administration Protocol Ipratropium [place] 0.5 mg 10/24/24 20:00 10/27/24 07:50 Ipratropium 0.5 Mg/2.5 Ml Neb INHALATION 0.5 mg Q6H.RESP SEEMA Administration Isosorbide Mononitrate 30 mg 10/25/24 09:00 10/26/24 08:25 Isosorbide Mononitrate Er 30 Mg Tablet PO 30 mg DAILY SEEMA Administration Levalbuterol HCl 0.63 mg 10/24/24 20:00 10/27/24 07:50 Levalbuterol 0.63 Mg/3 Ml Neb INHALATION 0.63 mg Q6H.RESP SEEMA Administration Losartan Potassium 100 mg 10/25/24 09:00 10/26/24 08:25 Losartan 50 Mg Tablet PO 100 mg DAILY SEEMA Administration Morphine Sulfate 2 mg 10/24/24 17:34 10/25/24 13:31 Morphine 4 Mg/Ml Sdv 1 Ml IVP 2 mg Q4H PRN Administration SEVERE PAIN Pantoprazole Sodium 40 mg 10/24/24 17:00 10/27/24 04:41 Pantoprazole 40 Mg Sdv IVP 40 mg Q12H SEEMA Administration Prednisone 40 mg 10/26/24 09:00 10/26/24 08:26 Prednisone 20 Mg Tablet PO 40 mg DAILY SEEMA Administration PFSH Anesthesia Medical History Back pain GERD (gastroesophageal reflux disease) Myocardial infarction Hypercholesterolemia Sarcoidosis Peripheral neuropathy Osteoarthritis Azotemia Hypertension Diabetes Chronic systolic (congestive) heart failure COPD (chronic obstructive pulmonary disease) [place] type 2a hyperlipoproteinemia Type 2 diabetes mellitus without complication Cerebrovascular accident Arteriosclerosis of coronary artery bypass graft Surgical History Hx of CABG Family History Mother Cancer Father Diabetes Brother Psychiatric illness Social History Smoking and tobacco/nicotine status: never used tobacco/nicotine Data Anesthesia 10/27/24 04:05 10/27/24 04:05 Short CBC 10/26/24 10/26/24 10/27/24 Range/Units 03:13 04:59 04:05 WBC 11.57 H 10.90 (3.29-11.43) 10^3/uL Hgb 6.70 L 6.80 L 8.80 L (11.27-16.99) g/dL Hct 25.6 L 25.9 L 32.3 L (37-53) % MCV 64.0 L 65.8 L (82-101) fl Plt Count 199 181 (157-399) 10^3/cmm Neut % (Auto) 82.6 85.5 % Neut # (Auto) 9.56 H 9.32 H (1.8-7.7) 10^3/uL BMP 10/26/24 10/26/24 10/27/24 03:13 17:05 04:05 Sodium 137 136 137 Potassium 4.3 4.0 3.4 L Chloride 100 99 100 Carbon Dioxide 24 22 22 BUN 41 H 48 H 41 H Creatinine 1.8 H 1.5 H 1.5 H Glucose 339 H 258 H 181 H Calcium 8.7 9.0 9.2 Liver Function 10/26/24 10/27/24 Range/Units 03:13 04:05 Total Bilirubin 0.5 0.7 (0.15-1.2) mg/dL AST 8 15 (0-40) U/L ALT 9 13 (0-41) U/L Alkaline Phosphatase 73 65 (40-130) U/L Albumin 3.2 L 3.5 (3.5-5.2) g/dL Blood Bank 10/26/24 04:59 Blood Type O Positive Rho(D) Type Rh positive Antibody Screen Negative Microbiology 10/26/24 19:26 Occult Blood (FIT) - Final Stool Cardiac Studies: Echocardiogram 10/24/24 Sestamibi Stress Test (Cardiology) 10/25/24
--- NOTE | 2024-10-27 11:25 | P.PN_ITS ---
<Statement entered by Abilio Perdomo M.D - 10/28/24 21:45> Patient was evaluated and cared for in conjunction with an advanced practice practitioner. I personally examined the patient and reviewed the chart and all pertinent data including imaging, telemetry, and laboratory results. I discussed the patient in detail with the advanced practice practitioner. Please see their note for complete progress note, results and agreed upon plan of care for the patient. GENERAL: Patient is alert and oriented HEART: Regular S1 and S2 LUNGS: Clear to auscultation bilaterally EXTREMITIES: Lower extremities with no edema Subjective 2 Subjective: EGD and colonoscopy planned for this morning. He has done well overnight and feels better after receiving blood transfusion yesterday. He is currently receiving an iron infusion. Hemoglobin this morning 8.8, creatinine 1.5. No chest pain, no worsening shortness of breath. He appears euvolemic. Vitals/I&O/Wt Last Vital Signs Temp 97.4 F L 10/27/24 09:42 Pulse 84 10/27/24 09:42 Resp 16 10/27/24 09:42 BP 143/76 10/27/24 09:42 Pulse Ox 98 10/27/24 09:42 O2 Del Method Room Air 10/27/24 09:42 O2 Flow Rate 2 10/26/24 02:00 10/26/24 10/27/24 10/27/24 22:59 06:59 14:59 Intake Total 1280 / 2730 Output Total 1 / 1001 1000 / 1001 Balance 1279 / 1729 -1000 / 1729 Weight last 48 hrs Weight 260 lb Weight 246 lb 4.8 oz Weight 242 lb Physical Exam 2 Const: COMMON NORMALS: no acute distress and patient oriented x3 GENERAL APPEARANCE: cooperative and comfortable ORIENTATION/CONSCIOUSNESS: Yes awake, Yes oriented to person, Yes oriented to place and Yes oriented to time Chest: COMMONS NORMALS: normal inspection of the chest and normal palpation of entire chest wall CHEST: Yes Symmetrical chest wall rise Resp: COMMON NORMALS: normal respiratory effort, No retractions, No use of accessory muscles and clear to auscultation bilaterally EFFORT & INSPECTION: Yes symmetric chest movement AUSCULTATION: clear to auscultation bilaterally Cardio: COMMON NORMALS: regular rate, regular rhythm, S1 normal heart sound present, S2 normal heart sound present, No gallops present (Cardio), No clicks present (Cardio), No murmurs present (Cardio) and No rub (Cardio) RATE: r egular rate RHYTHM: regular rhythm HEART SOUNDS: S1 normal heart sound present and S2 normal heart sound present PERIPHERAL PULSES: radial pulses present Extremity: COMMON NORMALS: no pedal edema Neuro: COMMON NORMALS: patient oriented x3 and moves all extremities S ENSORIUM/ORIENTATION: Yes oriented to person, Yes oriented to place and Yes oriented to time Urinary Catheter Management: Pope: Cath Placed During This Visit: yes Reason for Continuing Indwelling Catheter: Accurate Measurement of Urinary Output in Critically Ill Patients Urinary Catheter Date of Insertion: 10/24/24 Urinary Catheter Time of Insertion: 22:06 Data 10/27/24 04:05 10/27/24 04:05 Micro: Microbiology 10/26/24 19:26 Occult Blood (FIT) - Final Stool A&P Assessment and plan (1) Chronic systolic (congestive) heart failure: (2) Arteriosclerosis of coronary artery bypass graft: Qualifiers: [place] vs. transplanted heart: [place] heart Associated angina: without angina Qualified Code(s): I25.810 - Atherosclerosis of coronary artery bypass graft(s) without angina pectoris (3) Moderate aortic stenosis: (4) Diabetes: Qualifiers: Diabetes mellitus type: type 2 Diabetes mellitus retirement insulin use: without termite inspector use Diabetes mellitus complication status: without complication Qualified Code(s): E11.9 - Type 2 diabetes mellitus without complications Plan Will await results of EGD and colonoscopy today. I discussed with him use of a LifeVest due to the low LVEF of 30%. He is willing to use, will place order today. Continue medical management of ischemic cardiomyopathy with aspirin, statin, carvedilol, will likely switch losartan to Entresto 24/26mg BID as creatinine has been stable on losartan. He would like to follow-up with Dr. Grajeda in the cardiology clinic at discharge. PDMP PDMP Reviewed: Not Reviewed Attestations 2 Medical Necessity Statement*: endoscopy today, medical management of CHF Coding Level of Care Code Acute Code for g Fwd Diagnoses Chronic systolic (congestive) heart failure I50.22 Atherosclerosis of coronary artery bypass graft of [place] heart without angina pectoris I25.810 [place] vs. transplanted heart: [place] heart Associated angina: without angina Moderate aortic stenosis I35.0 Type 2 diabetes mellitus without complication, without long-term current use of insulin E11.9 Diabetes mellitus type: type 2 Diabetes mellitus termite inspector insulin use: without retirement use Diabetes mellitus complication status: without complication
--- NOTE | 2024-10-27 12:05 | ANE.PACU2 ---
Inpatient post-anesthesia follow up: Airway intact: Yes Vital signs: Temperature 97.5 F Pulse Rate 83 Respiratory Rate 16 Blood Pressure 116/58 Pulse Oximetry 97 Oxygen Delivery Me thod Room Air Oxygen Flow Rate 4 Fraction of Inspir ed Oxygen Hydration adequate: Yes Nausea and vomiting: No Pain level: 1 Mental status: Baseline
[2024-10-27 12:19] LABS: CA 125 104.2 U/mL (0-35)
[2024-10-27 12:29] LABS: Glucose Point of Care 210 mg/dL (70-110)
--- NOTE | 2024-10-27 12:40 | P.PN_ITS ---
Subjective 2 Subjective: No acute events overnight. Seen with family at bedside. Patient states he is feeling better. Denies any nausea, vomiting, headache. Blood pressure is better. Remains on room air. Seen again after EGD and colonoscopy later in the day to discuss the results. Vitals/I&O/Wt Last Vital Signs Temp 97.5 F L 10/27/24 11:30 Pulse 83 10/27/24 11:57 Resp 16 10/27/24 11:57 BP 116/58 10/27/24 11:57 Pulse Ox 97 10/27/24 11:57 O2 Del Method Room Air 10/27/24 11:57 O2 Flow Rate 4 10/27/24 11:30 10/26/24 10/27/24 10/27/24 22:59 06:59 14:59 Intake Total 1280 / 2730 Output Total 1000 / 1001 Balance 1279 / 2729 -1000 / 1729 Weight last 48 hrs Weight 117.934 kg Weight 111.72 kg Weight 109.769 kg Physical Exam 2 Narrative: General: No acute distress, AO x3, Pallor present, chronically sick appearing HEENT: PERRLA, pupils bilaterally equal and reactive Chest: Normal vesicular breath sounds, no added sounds, equal good air entry bilaterally CVS: S1-S2 regular, pansystolic murmur present at apex, tachycardia, no gallops, no rubs Abdomen: Soft, nontender, no organomegaly, bowel sounds present Neuro: No focal deficits, no facial deformity, AO x3, power 5/5 in all limbs Urinary Catheter Management: Pope: Cath Placed During This Visit: yes Reason for Continuing Indwelling Catheter: Accurate Measurement of Urinary Output in Critically Ill Patients Urinary Catheter Date of Insertion: 10/24/24 Urinary Catheter Time of Insertion: 22:06 Data 10/27/24 04:05 10/27/24 04:05 Micro: Microbiology 10/26/24 19:26 Occult Blood (FIT) - Final Stool A&P Assessment and plan (1) Hypoxia: Resolved. Most likely a combination of congestive heart failure along with COPD exacerbation. More so because of congestive heart failure. Does have history of sarcoidosis in the past. Cannot rule out pneumonia though less likely given CT changes. Oxygen supplementation keeping saturation over 88%. Aggressive pulmonary toilet with I-S and Acapella. COVID-19/RSV/influenza negative in ER. Sputum culture not collected yet. CTA negative for pulmonary embolism. (2) Chronic systolic (congestive) heart failure: Echocardiogram done today shows an EF of 30% with global LV hypokinesia, moderate MR, moderate aortic valve stenosis with mean gradient of 3.5 mmHg, mild MR, severe TR. Fluid restriction to less than 1500 cc. Continue with IV Lasix 40 mg twice daily. Strict input output charting, daily weights. (3) Arteriosclerosis of coronary artery bypass graft: Appreciate echocardiogram as above. Cannot rule out ACS in setting of cardiomyopathy. As patient remains chest pain-free, has history of anemia for now we will hold off on full dose anticoagulation. Appreciate cardiology recommendations. Plan for cardiac angiogram was deferred given low hemoglobin today. Underwent Lexiscan stress test. Results awaited. Patient had CABG in 2012. Does not follow-up with engineering psychologist at baseline. Continue with home dose of aspirin, statin, beta-edna, Imdur. Appreciate A1c, lipid panel. Qualifiers: [place] vs. transplanted heart: [place] heart Associated angina: without angina Qualified Code(s): I25.810 - Atherosclerosis of coronary artery bypass graft(s) without angina pectoris (4) Cardiomyopathy: Found to have EF of 30%. Concern for ischemic cardiomyopathy given history of CABG. Lexiscan stress test as above. Patient is already on guideline directed medical therapy with carvedilol 25 mg twice daily, ARB. Having frequent VPCs. Continue with amiodarone for 100 mg twice daily. Will discuss with cardiology regarding possible need for LifeVest. (5) COPD (chronic obstructive pulmonary disease): Pulmicort twice daily, ipratropium, Xopenex every 6 hour. Continue with Solu-Medrol to prednisone 40 mg oral daily for overall 5 days. (6) Hypertension: Goal blood pressure less than 140/90 mmHg with mean over 65. Soft today. Hold losartan and imdur for now. Decrease coreg to 12.5 mg BID Patient continues to remain tachycardic with occasional VPCs. Given cardiomyopathy with EF 30% for now we will C/w amiodarone 400 mg twice daily for loading. Will plan for switching down to 200 mg twice daily in 1 week followed by 200 mg once daily in 1 week. Qualifiers: Hypertension type: primary hypertension Qualified Code(s): I10 - Essential (primary) hypertension (7) Type 2 diabetes mellitus without complication: A1c of 8 Switch to Lantus 40 units twice daily. C/w insulin sliding scale at moderate dose protocol. Qualifiers: Diabetes mellitus long-term insulin use: with ocean transportation intermediary use Qualified Code(s): E11.9 - Type 2 diabetes mellitus without complications; Z79.4 - intermediate card tender (current) use of insulin (8) Consolidation lung: Pneumonia versus chronic changes from sarcoidosis. Sputum culture awaited. MRSA swab pending. Bacterial antigen negative. Patient does not have any leukocytosis. Afebrile for now. Empirically continue with IV ceftriaxone and oral azithromycin to cover for community-acquired pneumonia for now. (9) Pleural effusion: (10) Moderate mitral valve regurgitation: (11) Moderate aortic stenosis: (12) Sarcoidosis: Check angiotensin levels. (13) Iron deficiency anemia: Anemia: Hemoglobin ulisses to 6.8. Stool for occult blood pending. Transfuse 2 units of PRBC. [place] Hb over 8. Will consult Sx for EGD and colonoscopy. Patient is agreeable. IV Protonix 40 mg twice daily. (14) Mass of colon: Plan SANDRA: Creatinine up to 1.8 today. Most likely in setting of anemia. Hold off on losartan as above. Monitor BMP in afternoon. Getting blood transfusion as above. Continue with Lasix to prevent congestive heart failure as patient is getting 2 units of blood transfusion today. CODE STATUS: Sister is DPOA. Full code. Cardiac carb consistent diet Protonix to be sufficient for PUD prophylaxis SCD for DVT prophylaxis given anemia. Plan for the day: Patient euvolemic. Hold off on any further Lasix. Goal blood pressure less than 140/90 mmHg. Target mean artery pressure over 65. Continue to hold off on losartan and Imdur for now. Continue Coreg at 12.5 mg twice daily. Restart diet. Monitor blood sugars. Post 2 unit of blood transfusion. Hemoglobin appropriately over 8. Continue with IV iron supplementation, Protonix twice daily. Found to have colonic mass at rectosigmoid junction. Biopsies awaited. Patient would need CT with contrast for further evaluation and for possible metastasis but given mild SANDRA with recovering kidneys for now hold off. Will plan for CT with contrast in next 24 hours if kidney functions improved. Start on gentle IV hydration with NS at 50 cc/h. Repeat BMP in AM. Creatinine improving to 1.5 today. Address possible patient's diet creatinine would be around 1.2-1.3. Continue with aspirin, statin. LifeVest ordered. Appreciate surgical and cardiology recommendations. Replace 40 mg of oral potassium. Blood sugars slightly elevated but better controlled. Did not receive Lantus in the morning today. Will give 20 units of Lantus one-time. Continue Lantus 40 units twice daily otherwise. PDMP PDMP Reviewed: Not Reviewed Attestations 2 Medical Necessity Statement*: Requires further hospitalization for management of anemia in setting of rectosigmoid mass, post blood transfusion, congestive heart failure while guideline directed medical therapy is adjusted Diagnoses Hypoxia R09.02 Chronic systolic (congestive) heart failure I50.22 Atherosclerosis of coronary artery bypass graft of [place] heart without angina pectoris I25.810 [place] vs. transplanted heart: [place] heart Associated angina: without angina Cardiomyopathy I42.9 COPD (chronic obstructive pulmonary disease) J44.9 Primary hypertension I10 Hypertension type: primary hypertension Type 2 diabetes mellitus without complication, with long-term current use of insulin E11.9; Z79.4 Diabetes mellitus long-term insulin use: with ocean transportation intermediary use Consolidation lung J18.1 Pleural effusion J90 Moderate mitral valve regurgitation I34.0 Moderate aortic stenosis I35.0 Sarcoidosis D86.9 Iron deficiency anemia D50.9 Mass of colon K63.89
[2024-10-27] MEDS: docusate sodium 100 mg Capsule PO (12:47)
[2024-10-27] MEDS: carvedilol 25 mg Tablet 12.5 MG PO ×2 (12:47→17:18)
[2024-10-27] MEDS: cetylpyridinium Lozenge 1 EACH MUCOUS MEM (12:48)
[2024-10-27] MEDS: predniSONE 20 mg Tablet 40 MG PO (12:48)
[2024-10-27] MEDS: atorvastatin 40 mg Tablet PO (12:48)
[2024-10-27] MEDS: azithromycin 250 mg Tablet 500 MG PO (12:48)
[2024-10-27] MEDS: gabapentin 100 mg Capsule 200 MG PO ×2 (12:48→17:18)
[2024-10-27] MEDS: amiodarone 200 mg Tablet 400 MG PO ×2 (12:48→17:18)
[2024-10-27] MEDS: aspirin 81 mg EC Tablet PO (12:49)
[2024-10-27 13:25] LABS: Carcinoembryonic Antigen 4.1 ng/mL (0.0-4.7)
[2024-10-27 16:33] LABS: Angiotensin Converting Enzyme 19 U/L (9-67)
[2024-10-27 16:39] LABS: Blood Urea Nitrogen 33 mg/dL (8-23); Calcium 8.9 mg/dL (8.5-10.5); Carbon Dioxide 22 mmol/L (22-29); Chloride 100 mmol/L (98-107); Creatinine Clr Calc Pharmacy 68.4396; Glomerular Filtration Rate 51.2 mL/min (90-130); Glucose 287 mg/dL (65-115); Osmolality Calculated 300 mOsm/kg (285-295); Sodium 136 mmol/L (136-145)
[2024-10-27 16:40] LABS: Glucose Point of Care 322 mg/dL (70-110)
[2024-10-27 16:43] LABS: Anion Gap 17.5 (5-19); Potassium 3.5 mmol/L (3.5-5.1)
[2024-10-27] MEDS: insulin glargine 100 units/1 mL 40 UNIT SUBCUT (17:18)
[2024-10-27] MEDS: insulin lispro 100 unit/1 mL SUBCUT ×2 (17:18→21:27)
[2024-10-27] MEDS: cefTRIAXone 1,000 mg SDV 1000 MG IVP (17:19)
[2024-10-27 20:55] LABS: Glucose Point of Care 369 mg/dL (70-110)
[2024-10-27 20:55] LABS: Glucose Point of Care 384 mg/dL (70-110)
[2024-10-28] VITALS (9 sets, daily range): BP systolic 100–147; BP diastolic 55–79; PULSE 71–115; RESP 14–22; TEMP 36.4–37.5; O2SAT 93–100
[2024-10-28] MEDS: levalbuterol 0.63 mg/3 mL Neb INHALATION (01:27)
[2024-10-28] MEDS: ipratropium 0.5 mg/2.5 mL Neb INHALATION (01:27)
[2024-10-28 04:20] LABS: Basophils % 0.1 %; Hematocrit 36.7 % (37-53); Lymphocytes # 0.8 10^3/uL (0.8-4.8); Mean Corpuscular Hemoglobin 17.7 pg (27-33); Mean Corpuscular Volume 65.5 fl (82-101); Monocytes # 0.9 10^3/uL (0.2-0.9); Monocytes % 6.7 %; Neutrophils % 86.2 %; Nucleated Red Blood Cells % 0 %; Platelet Count 239 10^3/cmm (157-399); Red Cell Distribution Width 21.2 % (12.1-15.1); White Blood Count 13.23 10^3/uL (3.29-11.43)
[2024-10-28 04:48] LABS: Alanine Aminotransferase 13 U/L (0-41); Albumin Level 3.7 g/dL (3.5-5.2); Alkaline Phosphatase 79 U/L (40-130); Anion Gap 17.1 (5-19); Aspartate Amino Transferase 11 U/L (0-40); Blood Urea Nitrogen 37 mg/dL (8-23); Calcium 9.1 mg/dL (8.5-10.5); Carbon Dioxide 22 mmol/L (22-29); Chloride 102 mmol/L (98-107); Creatinine Clr Calc Pharmacy 63.8769; Globulin 2.3 g/dL (1.3-4.6); Glomerular Filtration Rate 47.3 mL/min (90-130); Glucose 264 mg/dL (65-115); Osmolality Calculated 302 mOsm/kg (285-295); Potassium 4.1 mmol/L (3.5-5.1); Sodium 137 mmol/L (136-145); Total Bilirubin 0.6 mg/dL (0.15-1.2)
--- NOTE | 2024-10-28 05:22 | PC.NURSE ---
Patient IV came out, patient is refusing IV at this time. Messaged Dr. Brooks if IV is okay to stay out. Per doctor Todd okay to leave IV out.
[2024-10-28 06:07] LABS: Glucose Point of Care 252 mg/dL (70-110)
--- NOTE | 2024-10-28 08:37 | CT_ITS ---
WS: [id number] CT ABDOMEN AND PELVIS WITH CONTRAST HISTORY: possible colon cancer TECHNIQUE: Imaging performed of the abdomen and pelvis with IV contrast. Single phase imaging of the abdomen. Coronal and sagittal reformats are submitted. All CT scans at [facility] use at least one of these dose optimization techniques: automated exposure control; mA and/or kV adjustment per patient size (includes targeted exams where dose is matched to clinical indication); or iterative reconstruction. IV CONTRAST: Omnipaque 350; 100 mL IV. Oral contrast: Yes. DLP: 1043.66 mGy.cm COMPARISON: 05/11/2018, chest CT 10/24/2024 Lower thorax: Improving bilateral pleural effusions and lower lung field pneumonia and atelectasis. Components of atelectasis are still present at the lung bases. Persistent consolidation in the lingula. Normal size heart. There are a few small hilar lymph nodes measuring up to 12 mm. No hiatal hernia. Liver/biliary system: Normal size with no intrahepatic dilatation. Gallbladder: Gallbladder is distended and contains numerous stones. No adjacent cholecystic fluid. Pancreas: Normal size pancreas and pancreatic duct. No adjacent inflammation. Spleen: Normal size spleen. No mass or infarct. Adrenal glands: Normal. Right kidney: Numerous renal cysts. Some are too small to characterize. The largest in the lower pole measures 5.2 cm. No renal obstruction. Left kidney: Normal size LEFT kidney with a large upper pole cyst measuring 8.9 cm. No obstruction. Aorta: Advanced atherosclerotic plaque throughout the abdominal aorta and mesenteric arteries. No aneurysm. Lymphadenopathy: Celiac axis lymph node 11 mm. No retroperitoneal adenopathy. No enlarged lymph nodes within the pelvis. Free fluid: There is a small amount of free fluid in the pelvis. GI tract: Long segment circumferential mass extends over a length of 11.4 cm throughout the sigmoid colon. There is asymmetric wall thickening with enhancement and nodularity. Asymmetric narrowing of the lumen. There is significant stenosis of the lumen although no obstruction at this time. No adjacent enlarged lymph nodes. There are a few adjacent smaller lymph nodes which are hyperemic measuring up to 6 mm. Stomach is not distended. No small bowel obstruction. No appendicitis. Abdominal wall: Ventral abdominal wall hernia. Hernia contains fat only at the level of the umbilicus. Mild soft tissue anasarca through the pelvis. Pelvis: Small amount of free fluid in the pelvis. Pope catheter in a nondistended urinary bladder. Bones: Unremarkable. CT/CT abdomen pelvis w con* [id number] IMPRESSION: 1. Long segment sigmoid colon neoplasm extending over a length of 11.4 cm. Mar ked asymmetric wall thickening/nodularity with significant luminal narrowing. N o sigmoid obstruction at this time. 2. Subcentimeter but hypervascular lymph nodes adjacent to the sigmoid tumor. 3. Small amount of ascites in the pelvis. 4. No metastatic disease to the liver or adrenal glands. 5. Improving bilateral pleural effusions and consolidations in the lower lung [place]. There are a few indeterminate hilar lymph nodes also. Continued follow- up to resolution of the pulmonary infiltrates to exclude an underlying metastat ic nodule. 6. Cholelithiasis without acute cholecystitis. 7. Bilateral renal cysts. 8. Extensive atherosclerosis aorta and mesenteric arteries. 9. 11 mm lymph node at the celiac axis.
[2024-10-28] MEDS: carvedilol 25 mg Tablet 12.5 MG PO (08:50)
[2024-10-28] MEDS: gabapentin 100 mg Capsule 200 MG PO (08:50)
[2024-10-28] MEDS: atorvastatin 40 mg Tablet PO (08:50)
[2024-10-28] MEDS: aspirin 81 mg EC Tablet PO (08:50)
[2024-10-28] MEDS: predniSONE 20 mg Tablet 40 MG PO (08:50)
[2024-10-28] MEDS: azithromycin 250 mg Tablet 500 MG PO (08:51)
[2024-10-28] MEDS: insulin lispro 100 unit/1 mL SUBCUT ×2 (08:51→11:10)
[2024-10-28] MEDS: amiodarone 200 mg Tablet 400 MG PO (08:51)
[2024-10-28] MEDS: docusate sodium 100 mg Capsule PO (08:51)
[2024-10-28] MEDS: insulin glargine 100 units/1 mL 40 UNIT SUBCUT (08:54)
--- NOTE | 2024-10-28 09:20 | P.PN_ITS ---
<Statement entered by Abilio Perdomo M.D - 10/28/24 22:54> Patient was evaluated and cared for in conjunction with an advanced practice practitioner. I personally examined the patient and reviewed the chart and all pertinent data including imaging, telemetry, and laboratory results. I discussed the patient in detail with the advanced practice practitioner. Please see their note for complete progress note, results and agreed upon plan of care for the patient. Subjective 2 Subjective: Sitting up on side of bed this morning, feeling well. No chest pain or shortness of breath overnight. Arranging for LifeVest this morning prior to discharge. Vitals/I&O/Wt Last Vital Signs Temp 98.3 F 10/28/24 11:21 Pulse 73 10/28/24 11:21 Resp 19 H 10/28/24 11:21 BP 118/61 10/28/24 11:21 Pulse Ox 99 10/28/24 11:21 O2 Del Method Room Air 10/28/24 13:13 O2 Flow Rate 2 10/28/24 07:47 10/27/24 10/28/24 10/28/24 22:59 06:59 14:59 Intake Total 560 / 1030 0 / 1030 1144 / 1144 Output Total 700 / 800 100 / 800 Balance -140 / 230 -100 / 230 1144 / 1144 Weight last 48 hrs Weight 261 lb Weight 260 lb Physical Exam 2 Const: COMMON NORMALS: no acute distress and patient oriented x3 GENERAL APPEARANCE: cooperative and comfortable ORIENTATION/CONSCIOUSNESS: Yes awake, Yes oriented to person, Yes oriented to place and Yes oriented to time Chest: COMMONS NORMALS: normal inspection of the chest and normal palpation of entire chest wall CHEST: Yes Symmetrical chest wall rise Resp: COMMON NORMALS: normal respiratory effort, No retractions, No use of accessory muscles and clear to auscultation bilaterally EFFORT & INSPECTION: Yes symmetric chest movement AUSCULTATION: clear to auscultation bilaterally Cardio: COMMON NORMALS: regular rate, regular rhythm, S1 normal heart sound present, S2 normal heart sound present, No gallops present (Cardio), No clicks present (Cardio), No murmurs present (Cardio) and No rub (Cardio) RATE: r egular rate RHYTHM: regular rhythm HEART SOUNDS: S1 normal heart sound present and S2 normal heart sound present PERIPHERAL PULSES: radial pulses present Extremity: COMMON NORMALS: no pedal edema Neuro: COMMON NORMALS: patient oriented x3 and moves all extremities S ENSORIUM/ORIENTATION: Yes oriented to person, Yes oriented to place and Yes oriented to time Urinary Catheter Management: Pope: Cath Placed During This Visit: yes Reason for Continuing Indwelling Catheter: Accurate Measurement of Urinary Output in Critically Ill Patients Urinary Catheter Date of Insertion: 10/24/24 Urinary Catheter Time of Insertion: 22:06 Data 10/28/24 03:49 10/28/24 03:49 A&P Assessment and plan (1) Chronic systolic (congestive) heart failure: (2) Moderate aortic stenosis: (3) Cardiomyopathy: (4) Arteriosclerosis of coronary artery bypass graft: Qualifiers: [place] vs. transplanted heart: [place] heart Associated angina: without angina Qualified Code(s): I25.810 - Atherosclerosis of coronary artery bypass graft(s) without angina pectoris (5) Hypertension: Qualifiers: Hypertension type: primary hypertension Qualified Code(s): I10 - Essential (primary) hypertension Plan Plan to discharge home today with a LifeVest. Continue amiodarone for frequent PVCs, continue 200 twice a day dosing until 11/02/2024 then reduce to 200 mg daily. Continue carvedilol, valsartan has been held at due to SANDRA with instructions to resume on 11/01/2024. Follow-up in the cardiology clinic in 7 to 10 days. PDMP PDMP Reviewed: Not Reviewed Attestations 2 Medical Necessity Statement*: discharge today Coding Level of Care Code Acute Code for [facility] Fwd Diagnoses Chronic systolic (congestive) heart failure I50.22 Moderate aortic stenosis I35.0 Cardiomyopathy I42.9 Atherosclerosis of coronary artery bypass graft of [place] heart without angina pectoris I25.810 [place] vs. transplanted heart: [place] heart Associated angina: without angina Primary hypertension I10 Hypertension type: primary hypertension
--- NOTE | 2024-10-28 09:28 | P.PN_ITS ---
Subjective 2 Subjective: Doing well overnight. Passing gas and tolerating diet. No abdominal pain. Vitals/I&O/Wt Last Vital Signs Temp 97.5 F L 10/28/24 07:55 Pulse 82 10/28/24 07:55 Resp 18 10/28/24 07:55 BP 147/79 10/28/24 07:55 Pulse Ox 100 10/28/24 07:55 O2 Del Method Room Air 10/28/24 07:55 O2 Flow Rate 2 10/28/24 07:47 10/27/24 10/28/24 10/28/24 22:59 06:59 14:59 Intake Total 560 / 1030 0 / 1030 680 / 680 Output Total 700 / 700 100 / 800 Balance -140 / 330 -100 / 230 680 / 680 Weight last 48 hrs Weight 261 lb Weight 260 lb Physical Exam 2 GI: OTHER: Benign abdominal exam abdomen soft nontender nondistended. Urinary Catheter Management: Pope: Cath Placed During This Visit: yes Reason for Continuing Indwelling Catheter: Accurate Measurement of Urinary Output in Critically Ill Patients Urinary Catheter Date of Insertion: 10/24/24 Urinary Catheter Time of Insertion: 22:06 Data 10/28/24 03:49 10/28/24 03:49 A&P Assessment and plan (1) Mass of colon: Plan I have extensive succussion with the patient and family members regarding the findings of the colonoscopy, I have informed that we have found a rectosigmoid mass with a percent obstruction and circumferential. Multiple biopsies were taken. We continue to workup with a CEA level that has been normal. We will obtain a CT of the abdomen and pelvis with p.o. and IV contrast for evaluate for possible metastatic disease. Depending on results of the CAT scan patient will either require a from chemotherapy and possible radiation versus a low anterior resection. The plan is to allow the patient to transition to the outpatient setting after imaging is done, we will provide a referral to colorectal surgery as soon as the pathology results are available. Patient shows understanding agrees with the plan. We will continue him on a soft diet and twice a day MiraLAX to prevent potential obstruction due to stool at the level of the tumor PDMP PDMP Reviewed: Not Reviewed Attestations 2 Medical Necessity Statement*: Per medical team Coding Level of Care Code Acute Code for [facility] Fwd Diagnoses Mass of colon K63.89
[2024-10-28] MEDS: iron sucrose 200 MG in sodium chloride 0.9% (100 ml) 100 ML 220 MG IV (09:58)
--- NOTE | 2024-10-28 10:27 | P.DS_ITS ---
Discharge Providers Date of Admission: 10/24/24 16:41 Date of Discharge: October 28, 2024 Attending Provider at Admission: Rustam Contreras MD Attending Provider at Discharge: Rustam Contreras MD Consults: Cardiology: Dr. Perdomo Surgery: Dr. Brenton Jc Primary Care Provider: Blayne Desai MD Diagnoses at Discharge Discharge Diagnosis (1) Mass of colon: Status: Acute (2) Chronic systolic (congestive) heart failure: Status: Acute (3) Cardiomyopathy: Status: Acute (4) Moderate mitral valve regurgitation: Status: Acute (5) Moderate aortic stenosis: Status: Acute (6) Arteriosclerosis of coronary artery bypass graft: Status: Acute Qualifiers: Associated angina: without angina [place] vs. transplanted heart: [place] heart Qualified Code(s): I25.810 - Atherosclerosis of coronary artery bypass graft(s) without angina pectoris (7) Peripheral arterial disease: Status: Acute (8) Hypertension: Status: Acute Qualifiers: Hypertension type: primary hypertension Qualified Code(s): I10 - Essential (primary) hypertension (9) Type 2 diabetes mellitus without complication: Status: Acute Qualifiers: Diabetes mellitus correction insulin use: with moth exterminator use Qualified Code(s): E11.9 - Type 2 diabetes mellitus without complications; Z79.4 - moth exterminator (current) use of insulin (10) Iron deficiency anemia: Status: Acute (11) COPD (chronic obstructive pulmonary disease): Status: Acute Reason for Visit Reason for Visit: chf problems Hospital Course Hospital Course Owen Ann is a 64 year old male with past medical history of CAD post CABG, type 2 diabetes mellitus, hypertension, hyperlipidemia, possible congestive heart failure, CVA who lives by himself was brought into the ER today by his sister who is his primary caregiver because of difficulty in breathing which has been getting worse over last 2 months but acutely over last 3 to 4 days with concerns for difficulty on exertion because of shortness of breath getting worse over the last 2 days along with orthopnea. Patient also has noticed increased swelling in his lower limbs. Denies any nausea, vomiting, headache, melena, hematuria, hemoptysis, hematemesis. Patient recently has been needing up to 2 L of oxygen supplementation both at rest and on sleeping as per the sister for last 1 week. On admission patient was found to be in congestive heart failure with concerns for anemia. He was started on IV diuresis. Echocardiogram was done which showed an EF of 30% with moderate MR and moderate aortic valve stenosis. Cardiology was consulted. Plan was to go for cardiac angiogram but given worsening of his anemia he underwent cardiac stress test which showed significant old cardiac injury without concerns for acute ischemia. For congestive heart failure he responded well to IV diuresis and he was uptitrated as per guideline directed medical therapy for congestive heart failure with Coreg and ARB's. During hospitalization he was found to have frequent episodes of VPCs for which she was started on oral amiodarone after which his heart rate is better controlled. For anemia surgery was consulted and he underwent EGD and colonoscopy on 10/27. During colonoscopy he was found to have significant rectosigmoid colonic mass. He underwent CT abdomen pelvis with contrast for further evaluation of possible cancer. He has been discharged in hemodynamically stable condition on oral amiodarone 200 mg twice daily for next 1 week followed by 200 mg once daily, continuation of home dose of Coreg with advised to hold off on valsartan for 4 more days given mild acute kidney injury in setting of diuresis and recent contrast CT scan. He is been advised in detail about lifestyle modification with congestive heart failure and fluid restrictions. He is to check his body weight daily. He has been sent home on oral iron supplementation with advised to follow-up with surgical team as an outpatient to follow-up for biopsy results. He will be given referral for oncology and colorectal surgery depending on the results of CT scan and biopsies. For diabetes his dose of Lantus has been increased to 50 units twice daily, Humalog has been changed to 15 units 3 times a day, Farxiga has been added which would help with both congestive heart failure and diabetes with continuation of his home dose of glyburide. Discharge plan discussed in detail with patient and patient's sisters at bedside and all the questions were answered. Physical Exam Narrative: General: No acute distress, AO x3, Pallor present, chronically sick appearing HEENT: PERRLA, pupils bilaterally equal and reactive Chest: Normal vesicular breath sounds, no added sounds, equal good air entry bilaterally CVS: S1-S2 regular, pansystolic murmur present at apex, tachycardia, no gallops, no rubs Abdomen: Soft, nontender, no organomegaly, bowel sounds present Neuro: No focal deficits, no facial deformity, AO x3, power 5/5 in all limbs Urinary Catheter Management: Pope: Cath Placed During This Visit: yes Reason for Continuing Indwelling Catheter: Accurate Measurement of Urinary Output in Critically Ill Patients Urinary Catheter Date of Insertion: 10/24/24 Urinary Catheter Time of Insertion: 22:06 Discharge Data Studies Completed and Pending Completed Studies During Hospitalization Category Date Time Status CT angio chest PE protcl [id number] Stat Cat Scan 10/24/24 14:28 Completed Sestamibi Stress Test Request Routine Exams 10/25/24 12:49 Draft XR chest 1V portable [id number] Stat Exams 10/24/24 12:18 Completed NM geeta perf SPECT r/s* [id number] Routine Nuc Med 10/26/24 12:49 Completed CV. echo complete* [id number] Routine Ultrasound 10/24/24 17:34 Completed Pending at discharge Category Date Time Status CT abdomen pelvis w con* [id number] Routine Cat Scan 10/28/24 08:37 Ordered Sestamibi Stress Test Request Routine Exams 10/24/24 22:26 Stop Req Blood Culture Stat Lab 10/24/24 16:33 Results RED BLOOD CELLS [Leukocyte Reduced RBC] Routine Lab 10/26/24 04:59 Results Sputum Culture and Gram Stain Stat Lab 10/24/24 16:43 Uncollected Type and Screen Routine Lab 10/26/24 04:59 Results Pathology: Surgical [PTH] Routine Pth 10/27/24 11:22 Received Radiology Impressions Chest X-Ray 10/24/24 12:18 IMPRESSION: 1. Interval development of small/moderate bilateral pleural effusions and fluid along the left major fissure with compressive atelectasis in the right and left lower lobes, right middle lobe, and left lingula. 2. Incidental/nonacute findings are listed in the report. Chest CTA 10/24/24 14:28 IMPRESSION: 1. No pulmonary embolism. 2. Small bilateral pleural effusions. 3. Dense areas of consolidation at the lung bases, lingula and RIGHT middle lobe. Consolidations are a combination of pneumonia and atelectasis. Greater component of pneumonia over atelectasis. 4. Mediastinal and hilar lymphadenopathy is probably reactive. 5. Pulmonary hypertension. No RIGHT heart strain. Echocardiogram CONCLUSIONS Moderately increased left ventricular cavity size. Severely decreased left ventricular systolic function. Left ventricular ejection fraction is estimated at 30 %. Global left ventricular hypokinesis. Moderately thickened mitral valve. Moderate mitral annular calcification. Moderate mitral valve regurgitation. Severe aortic valve calcification. Moderate aortic valve stenosis, mean gradient 3.5 mmHg, AAORN 2 cm squared. Mild aortic valve regurgitation. Severe tricuspid valve regurgitation. There is no pericardial effusion. Right atrial pressure is around 5 mm of mercury. Ibis Grajeda MD (Electronically Signed) Final Date: 24 October 2024 Lexiscan Stress Test PERFUSION FINDINGS Large area of fixed perfusion defect noted in basal to distal inferior basal to mid inferolateral and basal to distal anterolateral wall on both rest and stress images suggestive of old myocardial infarction in LAD and possible dominant circumflex territory. There is no luis-infarct ischemia noted. This study is negative for ischemia and suggestive of old myocardial infarction. FUNCTIONAL RESULTS (calculated via Gated SPECT) Stress Image LV EF (%): 37 Stress EDV (mL):218 TID: 1.09 Stress ESV (mL):138 FUNCTIONAL FINDINGS: There is lateral and inferior wall akinesis. IMPRESSIONS Large area of fixed perfusion defect noted in basal to distal inferior basal to mid inferolateral and basal to distal anterolateral wall on both rest and stress images suggestive of old myocardial infarction in LAD and possible dominant circumflex territory. There is no luis-infarct ischemia noted. This study is negative for ischemia and suggestive of old myocardial infarction. Ibis Grajeda MD (Electronically Signed) Final Date: 26 October 2024 12:03 Microbiology 10/26/24 19:26 Stool Occult Blood (FIT) - Final 10/24/24 16:33 Blood Blood Culture - Preliminary NEGATIVE TO DATE 10/24/24 16:29 Blood Blood Culture - Preliminary NEGATIVE TO DATE 10/24/24 15:21 Urine Kidney Bacterial Antigens - Final Laboratory Results WBC 13.23 10^3/uL (3.29-11.43) H 10/28/24 03:49 RBC 5.60 10^6/uL (3.85-5.65) 10/28/24 03:49 Hgb 9.90 g/dL (11.27-16.99) L 10/28/24 03:49 Hct 36.7 % (37-53) L 10/28/24 03:49 MCV 65.5 fl (82-101) L 10/28/24 03:49 MCH 17.7 pg (27-33) L 10/28/24 03:49 MCHC 27.0 g/dL (30-55) L 10/28/24 03:49 RDW 21.2 % (12.1-15.1) H 10/28/24 03:49 Plt Count 239 10^3/cmm (157-399) D 10/28/24 03:49 MPV Not Reportable 10/28/24 03:49 Neut % (Auto) 86.2 % 10/28/24 03:49 Lymph % (Auto) 6.0 % 10/28/24 03:49 [place] % (Auto) 6.7 % 10/28/24 03:49 Eos % (Auto) 0.0 % 10/28/24 03:49 Baso % (Auto) 0.1 % 10/28/24 03:49 Neut # (Auto) 11.40 10^3/uL (1.8-7.7) H 10/28/24 03:49 Lymph # (Auto) 0.8 10^3/uL (0.8-4.8) 10/28/24 03:49 [place] # (Auto) 0.9 10^3/uL (0.2-0.9) 10/28/24 03:49 Eos # (Auto) 0.0 10^3/uL (0.0-0.8) 10/28/24 03:49 Baso # (Auto) 0.0 10^3/uL (0.0-0.1) 10/28/24 03:49 Nucleated RBC % (auto) 0 % 10/28/24 03:49 Nucleated RBCs # 0.0 /100WBC 10/28/24 03:49 D-Dimer 0.53 ug/mLFEU (0-0.59) 10/24/24 13:09 Sodium 137 mmol/L (136-145) 10/28/24 03:49 Potassium 4.1 mmol/L (3.5-5.1) 10/28/24 03:49 Chloride 102 mmol/L (98-107) 10/28/24 03:49 Carbon Dioxide 22 mmol/L (22-29) 10/28/24 03:49 Anion Gap 17.1 (5-19) 10/28/24 03:49 BUN 37 mg/dL (8-23) H 10/28/24 03:49 Creatinine 1.5 mg/dL (0.7-1.2) H 10/28/24 03:49 GFR Calculation 47.3 mL/min (90-130) L 10/28/24 03:49 Glucose 264 mg/dL (65-115) H 10/28/24 03:49 POC Glucose 252 mg/dL (70-110) H 10/28/24 06:02 Estimat Average Glucose 183 10/24/24 13:09 Hemoglobin A1c 8.0 % (4.0-6.0) H 10/24/24 13:09 Calculated Osmolality 302 mOsm/kg (285-295) H 10/28/24 03:49 Lactic Acid 1.4 mmol/L (0.5-2.2) 10/24/24 13:09 Calcium 9.1 mg/dL (8.5-10.5) 10/28/24 03:49 Phosphorus 4.9 mg/dL (2.5-4.5) H 10/27/24 04:05 Magnesium 3.5 mg/dL (1.7-2.3) H 10/27/24 04:05 Iron 16 ug/dL (59-158) L 10/24/24 15:06 TIBC 383 mcg/dl 10/24/24 15:06 % Saturation 4.1 % (20-50) L 10/24/24 15:06 Unsat Iron Binding 367 ug/dL (112-347) H 10/24/24 15:06 Total Bilirubin 0.6 mg/dL (0.15-1.2) 10/28/24 03:49 AST 11 U/L (0-40) 10/28/24 03:49 ALT 13 U/L (0-41) 10/28/24 03:49 Alkaline Phosphatase 79 U/L (40-130) 10/28/24 03:49 Troponin T Baseline 76 ng/L (0-15) H 10/24/24 13:09 Troponin T 120 Minute 71.60 ng/L (0-15) H 10/24/24 15:06 Delta Troponin T -4.40 ABS# (0-10) L 10/24/24 15:06 Troponin T Hi Sens 6Hr 83.26 ng/L (0-15) H 10/24/24 19:42 Troponin T Hi Sens 6Hr Delta 7.26 ng/L (0-12) 10/24/24 19:42 NT-Pro-B Natriuret Pep 4116 pg/mL (0-125) H 10/24/24 13:09 Total Protein 6.0 g/dL (6.6-8.7) L 10/28/24 03:49 Albumin 3.7 g/dL (3.5-5.2) 10/28/24 03:49 Globulin 2.3 g/dL (1.3-4.6) 10/28/24 03:49 Triglycerides 97 mg/dL (0-150) 10/25/24 02:55 Cholesterol 122 mg/dL (0-200) 10/25/24 02:55 LDL Cholesterol, Calc 67 mg/dL (50-129) 10/25/24 02:55 HDL Cholesterol 36 mg/dL (60-100) L 10/25/24 02:55 LDL/HDL Ratio 1.86 RATIO (0.00-3.22) 10/25/24 02:55 Cholesterol/HDL Ratio 3.39 mg/dL (1.0-5.00) 10/25/24 02:55 Angiotensin Convert Enz 19 U/L (9-67) 10/25/24 02:55 Carcinoembryonic Ag 4.1 ng/mL (0.0-4.7) 10/27/24 04:05 CA 125 Antigen 104.2 U/mL (0-35) H 10/27/24 04:05 Vitamin B12 390 pg/mL (232-1245) 10/24/24 15:06 Folate 8.5 ng/mL (4.5-32.2) 10/25/24 02:55 Procalcitonin 0.25 ng/mL (0-0.5) 10/25/24 02:55 TSH 2.97 uIU/mL (0.27-4.20) 10/24/24 15:06 Urine Color Yellow (Yellow) 10/24/24 15:21 Urine Appearance Clear (CLEAR) 10/24/24 15:21 Urine pH 6.0 (5-7) 10/24/24 15:21 Ur Specific [place] 1.032 (1.005-1.030) H 10/24/24 15:21 Urine Protein Trace (Negative) A 10/24/24 15:21 Urine Glucose (UA) Negative (Normal) 10/24/24 15:21 Urine Ketones Negative (Negative) 10/24/24 15:21 Urine Blood Negative (Negative) 10/24/24 15:21 Urine Nitrate Negative (Negative) 10/24/24 15:21 Urine Bilirubin Negative (Negative) 10/24/24 15:21 Urine Urobilinogen 1.0 mg/dL (Negative) 10/24/24 15:21 Ur Leukocyte Esterase 2+ (Negative) A 10/24/24 15:21 Urine RBC None /hpf (0-2) 10/24/24 15:21 Urine WBC 5-10 /hpf (0-5) H 10/24/24 15:21 Ur Squamous Epith Cells 0-4 /hpf (0-5) H 10/24/24 15:21 Amorphous Sediment Not Reportable 10/24/24 15:21 Urine Bacteria Trace /hpf (NONE) 10/24/24 15:21 Nasal MRSA (PCR) Not detected (Negative) 10/25/24 16:31 Influenza A (PCR) Negative (Negative) 10/24/24 14:18 Influenza Type B (PCR) Negative (Negative) 10/24/24 14:18 RSV (PCR) Negative (Negative) 10/24/24 14:18 SARS-CoV-2 (PCR) Negative (Negative) 10/24/24 14:18 Blood Type O Positive 10/26/24 04:59 Rho(D) Type Rh positive 10/26/24 04:59 Antibody Screen Negative 10/26/24 04:59 Crossmatch See Detail 10/26/24 04:59 Vitals Last Vital Signs Temp 97.5 F L 10/28/24 07:55 Pulse 82 10/28/24 07:55 Resp 18 10/28/24 07:55 BP 147/79 10/28/24 07:55 Pulse Ox 100 10/28/24 07:55 O2 Del Method Room Air 10/28/24 07:55 O2 Flow Rate 2 10/28/24 07:47 Discharge Plan Discharge Patient Disposition: Home Health Service Condition: Stable Prescriptions: New furosemide [Lasix] 40 mg tablet 40 mg PO DAILY Qty: 30 0RF insulin glargine [Lantus Solostar U-100 Insulin] 100 unit/mL (3 mL) insulin pen 50 unit SUBCUT BID Qty: 15 0RF insulin lispro [Admelog SoloStar U-100 Insulin] 100 unit/mL insulin pen 15 unit SUBCUT TID Qty: 15 0RF ferrous gluconate 324 mg (38 mg iron) tablet 324 mg PO BID Qty: 60 0RF amiodarone [Pacerone] 200 mg Tablet 200 mg PO BID Qty: 60 2RF Rx Instructions: 200 twice daily for 1 week followed by once daily dapagliflozin propanediol [Farxiga] 10 mg tablet 10 mg PO DAILY Qty: 30 3RF polyethylene glycol 3350 [Miralax] 17 gram powder in packet 17 g PO BID 50 Days Qty: 100 3RF Continued albuterol sulfate 2.5 mg /3 mL (0.083 %) solution for nebulization 2.5 mg inhalation Q4H PRN (Reason: Shortness Of Breath Or Wheezing) fluticasone propion-salmeterol [Wixela Inhub] 250-50 mcg/dose blister with device 1 inh inhalation BID Mucinex 1,200 mg tablet extended release 12hr 1,200 mg PO BID aspirin [Adult Aspirin Regimen] 81 mg tablet,delayed release (DR/EC) 81 mg PO DAILY ipratropium-albuterol 0.5 mg-3 mg(2.5 mg base)/3 mL solution for nebulization 3 ml inhalation QID PRN (Reason: Shortness Of Breath Or Wheezing) gabapentin 100 mg capsule 200 mg PO BID atorvastatin 40 mg tablet 40 mg PO DAILY carvedilol 25 mg tablet 25 mg PO BID Rx Instructions: must administer with a meal/food glyburide 5 mg tablet 10 mg PO BID tramadol 50 mg tablet 50 mg PO Q6H PRN (Reason: chronic pain ) (DME) OneTouch Verio test strips Strip See Rx Instructions .Route Rx Instructions: As directed (DME) pen needle, diabetic [TechLITE Pen Needle] 31 gauge x 3/16 needle See Rx Instructions .Route Rx Instructions: As directed (DME) pen needle, diabetic [TechLITE Pen Needle] 32 gauge x 5/32 needle See Rx Instructions .Route Rx Instructions: As directed fluticasone propionate 50 mcg/actuation spray,suspension 1 spray INTRANASAL DAILY Held valsartan 320 mg tablet 320 mg PO DAILY Hold Instructions: Resume on 11/01/24. Discontinued isosorbide mononitrate 30 mg tablet extended release 24 hr 30 mg PO DAILY furosemide 80 mg tablet 80 mg PO BID Lantus U-100 Insulin 100 unit/mL solution 75 unit SUBCUT DAILY insulin aspart U-100 [Novolog FlexPen U-100 Insulin] 100 unit/mL (3 mL) insulin pen 25 unit SUBCUT TID Rx Instructions: per sliding scale albuterol sulfate [Ventolin HFA] 90 mcg/actuation HFA aerosol inhaler 2 puff inhalation Q4H PRN (Reason: Shortness Of Breath Or Wheezing) Discharge Orders: Discharge Order (Routine); Ordered 10/28/24 Ordered By: Rustam Contreras Referrals: [facility] [Outside] Jerry Neri MD [Physician] - 11/08/24 9:40 am (We have made a follow up appointment with Dr Chowdhury in regards to your colonoscopy ) Blayne Desai MD [Primary Care Provider] - 11/09/24 1:00 pm (We have arranged follow up care for you with your primary care Dr Desai on November 02 at 1pm. If you are unable to keep this appointment please contact the providers office to arrange your care.) Ibis Grajeda MD [Physician] - 1 month Angeles Leblanc FNP [Nurse Practitioner] - 11/17/24 2:30 pm (We have arranged you [facility] if you are not able to keep this appointment please contact the clinic to arrange your care) Discharge Diet: Cardiac, Diabetic and GI Soft Discharge Activity: Resume usual activity and Increase activity as tolerated Patient Instructions: GI (Gastrointestinal) Soft Diet (DC), GI Post Discharge Instructions w/ Anesthesia, Opioid Safety Activity Restrictions/Additional Instructions: Restrict fluid intake to less than 1500 cc, salt intake to less than 2 g daily. Advised to check his weight daily at home. Is advised that weight today would be the dry weight and if body weight increases by around 3 pounds, patient is to take an extra dose of Lasix daily till body weight comes down to weight today. If not able to come down to dry body weight in 1 week, then is to call cardiology office for further recommendations. Patient was counseled in detail to take medications regularly as prescribed. Check your blood pressure daily at home maintain a blood pressure diary. Goal blood pressures less than 140/90 mmHg. Check your fasting blood sugar daily at home. Goal blood sugar fasting is less than 120. Maintain a blood sugar diary and follow-up with a primary care provider with a blood sugar and blood pressure diary on set appointment for further adjustment of medications. You should have a repeat CBC and CMP with your primary care provider within next 1 week. Follow-up with Surgical team within 1 week for further discussion of biopsy results. Do not take valsartan for next 4 days. You can restart your valsartan on 11/01. Dose of Lantus has been changed to 50 units twice daily. Continue Humalog 15 units before each meal. General Surgery: -Follow a GI soft diet (as indicated in instructions) -Take twice a day miralax to keep stool soft -In case of severe abdominal pain, nausea, vomit or obstipation please return to hospital -WIll follow up in 1 week with pathology results. Discharge Attestations Time Spent in Discharge Care*: greater than 30 min Specific Discharge Activities: educating patient, educating and/or supporting family/caregiver, discussing with pcp/other providers, discussing with pillowcase cleaner/social workers/dc planners, documenting/other paperwork and evaluating patient/reviewing data Status at Discharge: Cognitive status at discharge: cognitively intact , Beh avioral status at discharge: cooperative , Functional status at discharge: independent ambulation , Overall status at discharge: patient is progressing back to baseline Quality Metrics Clinical Quality Measures [ No reported AMI, CVA or VTE this stay] Coding Level of Care Code 12687 Total time (in minutes) for Discharge: 70 Diagnoses Mass of colon K63.89 Chronic systolic (congestive) heart failure I50.22 Cardiomyopathy I42.9 Moderate mitral valve regurgitation I34.0 Moderate aortic stenosis I35.0 Atherosclerosis of coronary artery bypass graft of [place] heart without angina pectoris I25.810 Associated angina: without angina [place] vs. transplanted heart: [place] heart Peripheral arterial disease I73.9 Primary hypertension I10 Hypertension type: primary hypertension Type 2 diabetes mellitus without complication, with long-term current use of insulin E11.9; Z79.4 Diabetes mellitus moth exterminator insulin use: with moth exterminator use Iron deficiency anemia D50.9 COPD (chronic obstructive pulmonary disease) J44.9
[2024-10-28 10:57] LABS: Glucose Point of Care 369 mg/dL (70-110)
[2024-10-28] MEDS: iohexol 350 mg/mL 500 mL Btl (per mL) IV (12:17)
[2024-10-28] MEDS: iohexol 350 mg/mL 500 mL Btl (per mL) PO (12:18)
--- NOTE | 2024-10-28 16:44 | PC.NURSE ---
Patient discharged to home. Instruction provided regarding follow up needs, new medications with changes and post colonoscopy care. Patient verbalized complete understanding. patient taken by wheelchair to private vehicle with sisters. Life vest placed prior to discharge by Dell Latfi RN
[2024-11-01 10:17] LABS: Mismatch Repari Proteins-IHC See Report
== END 2024-10-28 16:00 | disposition home health service (06) | DRG 291 ==
LOC: ER 16:52 → ER IP 10-25 03:53 → CSU 10-25 08:07
PROVIDERS: Emergency Medicine; Internal Medicine; Surgery; Admitting Provider Student in an Organized Health Care Education/Training Program; Emergency Provider Physician Assistant; PCP Family Medicine; Visit Provider Student in an Organized Health Care Education/Training Program
PROC: 0DJ08ZZ Inspection of Upper Intestinal Tract, Via Natural or Artificial Opening Endoscopic (ICD-10-PCS; principal; 2024-10-27 10:35)
PROC: 0DJD8ZZ Inspection of Lower Intestinal Tract, Via Natural or Artificial Opening Endoscopic (ICD-10-PCS; CPT 45378; 2024-10-27 10:35)
DX: I11.0 Hypertensive heart disease with heart failure (principal); J18.1 Lobar pneumonia, unspecified organism; I25.810 Atherosclerosis of coronary artery bypass graft(s) without angina pectoris; J44.1 Chronic obstructive pulmonary disease with (acute) exacerbation; N17.9 Acute kidney failure, unspecified; E11.9 Type 2 diabetes mellitus without complications; E78.5 Hyperlipidemia, unspecified; K21.9 Gastro-esophageal reflux disease without esophagitis; D86.9 Sarcoidosis, unspecified; R09.02 Hypoxemia; I50.22 Chronic systolic (congestive) heart failure; I35.0 Nonrheumatic aortic (valve) stenosis; D50.9 Iron deficiency anemia, unspecified; I34.0 Nonrheumatic mitral (valve) insufficiency; K44.9 Diaphragmatic hernia without obstruction or gangrene; K29.00 Acute gastritis without bleeding; Z95.1 Presence of aortocoronary bypass graft; Z86.73 Personal history of transient ischemic attack (TIA), and cerebral infarction without residual deficits; Z79.82 Long term (current) use of aspirin; Z79.899 Other long term (current) drug therapy; Z79.4 Long term (current) use of insulin; Z88.8 Allergy status to other drugs, medicaments and biological substances; I25.2 Old myocardial infarction; Z11.52 Encounter for screening for COVID-19; Z79.84 Long term (current) use of oral hypoglycemic drugs; K63.89 Other specified diseases of intestine
CPT/HCPCS: 36415; 36416; 36430; 43239; 45380; 51702; 71045; 71275; 74177; 78452; 80048; 80053; 80061; 81001; 82164; 82274; 82378; 82607; 82746; 82962; 83036; 83540; 83550; 83605; 83735; 83880; 84100; 84145; 84443; 84484; 85014; 85018; 85025; 85378; 86304; 86403; 86850; 86900; 86920; 87040; 87637; 88305; 88341; 88342; 93005; 93017; 93306; 94640; 94664; 96365; 96372; 96375; 96376; 99285; A9500; J0456; J0696; J1756; J1815; J1940; J2270; J2470; J2704; J2785; J2919; J3490; J7030; J7050; J7512; J7614; J7626; J7644; J9999; P9016; Q0144

== ENCOUNTER → 2024-11-02 10:36 | Outpatient (BNVA) | payer MEDICAID, SELFPAY | PROVIDERS: PCP Family Medicine; Visit Provider Surgery | DX: D37.4 Neoplasm of uncertain behavior of colon (principal) | CPT/HCPCS: 99213 ==

== ENCOUNTER → 2024-11-29 14:00 | Outpatient (BNVA) | payer MEDICAID, SELFPAY | PROVIDERS: PCP Family Medicine; Visit Provider Nurse Practitioner Family | DX: I11.0 Hypertensive heart disease with heart failure (principal); I50.22 Chronic systolic (congestive) heart failure; I42.9 Cardiomyopathy, unspecified; R06.01 Orthopnea; Z95.1 Presence of aortocoronary bypass graft | CPT/HCPCS: 36415; 80053; 83880; 85025; 99214 ==

== ENCOUNTER → 2024-12-06 13:16 | Outpatient (BNVA) | payer MEDICAID, SELFPAY | PROVIDERS: PCP Family Medicine; Visit Provider Nurse Practitioner Family | DX: I11.0 Hypertensive heart disease with heart failure (principal); I50.22 Chronic systolic (congestive) heart failure; I42.9 Cardiomyopathy, unspecified; R06.01 Orthopnea | CPT/HCPCS: 99214 ==

== ENCOUNTER → 2024-12-15 13:05 | Outpatient (BNVA) | payer MEDICAID, SELFPAY | PROVIDERS: PCP Family Medicine; Visit Provider Nurse Practitioner Family | DX: I11.0 Hypertensive heart disease with heart failure (principal); I50.22 Chronic systolic (congestive) heart failure; I42.9 Cardiomyopathy, unspecified; R06.01 Orthopnea; Z79.82 Long term (current) use of aspirin; Z95.1 Presence of aortocoronary bypass graft | CPT/HCPCS: 36415; 80048; 83880; 99213 ==

== ENCOUNTER 2025-03-02 09:29 | Oncology outpatient (recurring) (ONCR) | payer MEDICAID, SELFPAY | END 2025-03-23 23:59 | disposition home or self-care (01) | PROVIDERS: PCP Family Medicine; Visit Provider Internal Medicine | DX: Z08 Encounter for follow-up examination after completed treatment for malignant neoplasm (principal); Z85.038 Personal history of other malignant neoplasm of large intestine; D64.9 Anemia, unspecified; E11.9 Type 2 diabetes mellitus without complications; I50.9 Heart failure, unspecified; I11.0 Hypertensive heart disease with heart failure; I25.10 Atherosclerotic heart disease of native coronary artery without angina pectoris | CPT/HCPCS: 36415; 99204 ==

== ENCOUNTER 2025-03-27 13:12 | Outpatient (CLI) | payer MEDICAID, SELFPAY ==
--- NOTE | 2025-03-27 13:15 | CTR_ITS ---
PROCEDURE INFORMATION: Exam: CT Chest With Contrast; Diagnostic Exam date and time: 03/27/2025 2:47 PM Age: 64 years old Clinical indication: Condition or disease; Cancer; Other: Malignant neoplasm of sigmoid colon; Prior surgery; Surgery date: 6+ months; Surgery type: Heart, colon TECHNIQUE: Imaging protocol: Diagnostic computed tomography of the chest with contrast. Radiation optimization: All CT scans at this facility use at least one of these dose optimization techniques: automated exposure control; mA and/or kV adjustment per patient size (includes targeted exams where dose is matched to clinical indication); or iterative reconstruction. Contrast material: OMNI 350; Contrast volume: 100 ml; Contrast route: INTRAVENOUS (IV); COMPARISON: CT angio chest PE protcl [id number] 10/24/2024 2:49 PM RADIATION DOSE METRICS: Total DLP (mGy-cm): 1295.16 FINDINGS: Lungs: Lung parenchymal evaluation is limited by respiratory motion artifact. New 2.6 cm peripheral focus of consolidation anteriorly in the left upper lobe. Additional peripheral nodular infiltrate has developed laterally in the left upper lobe. Previously seen posterior lingular atelectasis has improved. 3.2 cm focus of atelectasis posteriorly in the right middle lobe. Slight improvement in posteroinferior atelectasis/consolidation in the right lower lobe. Bronchiectasis and increased peribronchial soft tissue noted in the left lower lobe. Previous left lower lobe consolidation has improved. Pleural spaces: Moderate right subpulmonic effusion, slightly increased. Very small left effusion, which has improved. Heart: Unremarkable. No cardiomegaly. No pericardial effusion. Lymph nodes: A 2 cm lower right paratracheal lymph node previously measured 15 mm. Other mildly enlarged paratracheal, prevascular and subcarinal nodes have enlarged by 1-2 mm. 3 cm focus of soft tissue in the right infrahilar region has enlarged by 1-2 mm. The increased soft tissue with, which may represent lynette enlargement mildly narrows the traversing segmental bronchi of the right lung. Mild left infrahilar lynette enlargement persists. Vasculature: Unremarkable. No aortic aneurysm. Bones/joints: No suspicious osseous lesions have developed. Soft tissues: Unremarkable PROCEDURE INFORMATION: Exam: CT Abdomen And Pelvis With Contrast Exam date and time: 03/27/2025 2:47 PM Age: 64 years old Clinical indication: Condition or disease; Cancer; Other: Malignant neoplasm of sigmoid colon; Prior surgery; Surgery date: 6+ months; Surgery type: Heart, colon TECHNIQUE: Imaging protocol: Computed tomography of the abdomen and pelvis with contrast. Radiation optimization: All CT scans at this facility use at least one of these dose optimization techniques: automated exposure control; mA and/or kV adjustment per patient size (includes targeted exams where dose is matched to clinical indication); or iterative reconstruction. Contrast material: OMNI 350; Contrast volume: 100 ml; Contrast route: INTRAVENOUS (IV); COMPARISON: CT abdomen pelvis w con* [id number] 10/28/2024 12:08 PM RADIATION DOSE METRICS: Total DLP (mGy-cm): 1295.16 FINDINGS: Liver: No evidence for liver mass. The hepatic veins are unenhanced , possibly secondary to cardiac dysfunction. Gallbladder and biliary ducts: Large intraluminal stones again noted in the gallbladder. No biliary dilatation. Pancreas: The pancreas is unremarkable. Spleen: Mild splenomegaly. A few small nonspecific hypodensities are noted in the spleen. Adrenal glands: Unchanged 11 mm right adrenal adenoma. Kidneys and ureters: Bilateral renal cysts again noted. Some small renal cysts are too small to characterize. No hydronephrosis. Stomach and bowel: Interval sigmoid colectomy. A loop of nonobstructive hepatic flexure protrudes into the ostomy to the descending colon. Bowel caliber is normal. Appendix: No evidence of appendicitis. Intraperitoneal /retroperitoneal space: Small volume fluid density is interposed between the rectal stump and the bladder, likely reflecting postsurgical changes. No other free intraperitoneal fluid. Moderate perirenal edema is unchanged. Vasculature: Aortic caliber is normal. Marked atherosclerotic vascular calcification. Lymph nodes: No lymph node enlargement. Unchanged 11 mm celiac axis node. Urinary bladder: No focal wall thickening of the urinary bladder. Reproductive: Visualized portions of the male reproductive tract are unremarkable, though routine CT is limited in this regard. Bones/joints: No suspicious osseous lesions have developed. Soft tissues: Fat and fluid containing left inguinal hernia. CT/CT chest abdpel w/*[id number] IMPRESSION: 1. Interval enlargement of mild mediastinal and hilar lymphadenopathy. 2. Unchanged moderate right effusion and decreased left effusion. 3. Improved areas of bilateral parenchymal consolidation, with new small nodular infiltrates and atelectasis. Continued CT follow-up is recommended to exclude the presence of pulmonary metastases. IMPRESSION: 1. Interval sigmoid colectomy. A small amount of postsurgical fluid abuts the rectal stump. 2. Intra-abdominal metastatic disease is not identified. 3. A portion of the hepatic flexure partially herniates into the left abdominal stoma. 4. Cholecystolithiasis. COMMENTS: Consistent with the [place] [employer]'s Incidental Findings Committee white paper (J Am Nai Radiol 2018): Any incidental renal lesion less than 1 cm or classified as too small to characterize, or any incidental cystic renal lesion characterized as simple-appearing, is likely benign. No follow-up imaging is recommended for these lesions per consensus recommendations based on imaging criteria.
[2025-03-27] MEDS: iohexol 350 mg/mL 500 mL Btl (per mL) PO (14:05)
[2025-03-27 14:41] LABS: Blood Urea Nitrogen 21 mg/dL (8-23)
[2025-03-27] MEDS: iohexol 350 mg/mL 500 mL Btl (per mL) IV (14:57)
== END 2025-03-27 13:13 | disposition home or self-care (01) ==
LOC: RAD 13:12
PROVIDERS: PCP Family Medicine; Visit Provider Internal Medicine
DX: C18.7 Malignant neoplasm of sigmoid colon (principal); J98.4 Other disorders of lung; R91.8 Other nonspecific abnormal finding of lung field; J98.11 Atelectasis; J47.9 Bronchiectasis, uncomplicated; J91.8 Pleural effusion in other conditions classified elsewhere; R59.1 Generalized enlarged lymph nodes; Z85.038 Personal history of other malignant neoplasm of large intestine; K80.20 Calculus of gallbladder without cholecystitis without obstruction; D73.89 Other diseases of spleen; K94.09 Other complications of colostomy; R93.89 Abnormal findings on diagnostic imaging of other specified body structures; I70.0 Atherosclerosis of aorta; K40.90 Unilateral inguinal hernia, without obstruction or gangrene, not specified as recurrent; Z90.49 Acquired absence of other specified parts of digestive tract; K62.89 Other specified diseases of anus and rectum; K43.5 Parastomal hernia without obstruction or gangrene; K80.80 Other cholelithiasis without obstruction
CPT/HCPCS: 71260; 74177; 82565; 84520

== ENCOUNTER 2025-03-29 12:34 | Outpatient (CLI) | payer MEDICAID, SELFPAY | END 2025-03-29 12:35 | disposition home or self-care (01) | PROVIDERS: PCP Family Medicine; Visit Provider Family Medicine | DX: C18.7 Malignant neoplasm of sigmoid colon (principal); R91.8 Other nonspecific abnormal finding of lung field; J98.11 Atelectasis; J47.9 Bronchiectasis, uncomplicated; J90 Pleural effusion, not elsewhere classified; R59.0 Localized enlarged lymph nodes; K80.20 Calculus of gallbladder without cholecystitis without obstruction; D50.9 Iron deficiency anemia, unspecified; R25.2 Cramp and spasm; R09.02 Hypoxemia | CPT/HCPCS: 99215 ==

== ENCOUNTER 2025-03-29 12:34 | Oncology outpatient (recurring) (ONCR) | payer MEDICAID, SELFPAY ==
[2025-03-29 13:08] LABS: Hematocrit 33.2 % (37-53); Hemoglobin 9.40 g/dL (11.27-16.99); Mean Corpuscular HGB Conc 28.3 g/dL (30-55); Mean Corpuscular Hemoglobin 20.2 pg (27-33); Mean Corpuscular Volume 71.2 fl (82-101); Nucleated Red Blood Cells % 0 %; Platelet Count 147 10^3/cmm (157-399); Red Blood Count 4.66 10^6/uL (3.85-5.65); White Blood Count 7.73 10^3/uL (3.29-11.43)
[2025-03-29 13:27] LABS: Alanine Aminotransferase 11 U/L (0-41); Albumin Level 3.9 g/dL (3.5-5.2); Alkaline Phosphatase 111 U/L (40-130); Anion Gap 15.1 (5-19); Aspartate Amino Transferase 12 U/L (0-40); Blood Urea Nitrogen 19 mg/dL (8-23); Calcium 9.1 mg/dL (8.5-10.5); Carbon Dioxide 30 mmol/L (22-29); Chloride 98 mmol/L (98-107); Creatinine Clr Calc Pharmacy 89.9942; Ferritin 30 ng/mL (30-400); Globulin 2.2 g/dL (1.3-4.6); Glucose 166 mg/dL (65-115); Iron 23 ug/dL (59-158); Osmolality Calculated 294 mOsm/kg (285-295); Potassium 4.1 mmol/L (3.5-5.1); Sodium 139 mmol/L (136-145); Total Iron Binding Capacity 404 mcg/dl; Total Protein 6.1 g/dL (6.6-8.7); Unsaturated Iron Binding 381 ug/dL (112-347)
[2025-03-29 13:43] LABS: Vitamin B12 583 pg/mL (232-1245)
[2025-03-29 13:50] LABS: Carcinoembryonic Antigen 1.3 ng/mL (0.0-4.7)
[2025-03-29 13:57] LABS: Slide Review Slide Review Perform
== END 2025-04-23 23:59 | disposition home or self-care (01) ==
PROVIDERS: PCP Family Medicine; Visit Provider Internal Medicine
DX: C18.7 Malignant neoplasm of sigmoid colon (principal); D50.9 Iron deficiency anemia, unspecified; J98.11 Atelectasis; J47.9 Bronchiectasis, uncomplicated; R91.8 Other nonspecific abnormal finding of lung field; J90 Pleural effusion, not elsewhere classified; K80.20 Calculus of gallbladder without cholecystitis without obstruction; R25.2 Cramp and spasm
CPT/HCPCS: 36415; 80053; 82378; 82607; 82728; 82746; 83010; 83540; 83550; 83615; 85025; 99215

== ENCOUNTER 2025-04-12 13:38 | Inpatient (IN) | payer MEDICAID, SELFPAY ==
[2025-04-12 13:41] VITALS: BP 154/84; PULSE 86; RESP 22; TEMP 37.1; O2SAT 94
--- NOTE | 2025-04-12 13:42 | XR_ITS ---
WS: [id number] Portable AP upright chest, 04/12/2025 Clinical Data: dyspnea/cough Comparison: Portable chest, 10/24/2024 Findings: The bilateral lower lobe opacities have changed little. There is a right pleural effusion. The opacities may represent fluid, atelectasis and/or pneumonia. The heart is enlarged. The upper lobe pulmonary vascularity is normal. The aortic arch shows calcification. Midline sternotomy sutures are present. XR/XR chest 1V portable [id number] Impression: 1. Bilateral lower lobe opacities which may represent fluid, atelectasis and/or pneumonia. 2. Atherosclerosis and cardiomegaly.
--- NOTE | 2025-04-12 13:43 | ECG_ITS ---
[facility] Test Date: 2025-04-12 Pat Name: Owen Ann Department: Room: Gender: Male [employer] Remittance Clerk: : 1960 Requested By: Seth Major Order Number: [id number] Chun MD: Abilio Perdomo M.D. Measurements Intervals [place] Rate: 87 P: 40 NH: 184 QRS: -33 QRSD: 146 T: 132 QT: 402 QTc: 485 Interpretive Statements SINUS RHYTHM LEFT AXIS DEVIATION [QRS AXIS < -30] LEFT BUNDLE BRANCH BLOCK [120+ ms QRS DURATION, 80+ ms Q/S IN V1/V2, 85+ ms R IN I/aVL/V5/V6] Compared to ECG 10/24/2024 18:11:48 Left-axis deviation now present Left bundle-branch block now present Ventricular premature complex(es) no longer present Intraventricular conduction delay no longer present Electronically Signed On 04-15-2025 08:52:13 CDT by Abilio Perdomo M.D. [email or web address]
--- NOTE | 2025-04-12 13:43 | W.ED.SOB ---
HPI - SOB/Dyspnea General: Chief Complaint: Shortness of Breath/Dyspnea Stated Complaint: SOB Time Seen by Provider: 04/12/25 13:42 History of Present Illness: Associated symptoms: Deny abdominal pain, chest pain or fever(s) Related Data Home Medications ?Medication ?Instructions ?Recorded ?Confirmed albuterol sulfate 2.5 mg/3 mL 2.5 mg inhalation Q4H PRN 07/05/21 03/29/25 (0.083 %) solution for nebulization Shortness Of Breath Or Wheezing aspirin 81 mg tablet,delayed 81 mg PO DAILY 07/05/21 03/29/25 release (Adult Aspirin Regimen) fluticasone 250 mcg-salmeterol 50 1 inh inhalation BID 07/05/21 03/29/25 mcg/dose blistr powdr for inhalation (Wixela Inhub) gabapentin 100 mg capsule 200 mg PO BID 07/05/21 03/29/25 ipratropium 0.5 mg-albuterol 3 mg 3 ml inhalation QID PRN Shortness 07/05/21 03/29/25 (2.5 mg base)/3 mL nebulization Of Breath Or Wheezing soln blood sugar diagnostic (OneTouch 06/15/23 03/29/25 Verio test strips) glyburide 5 mg tablet 10 mg PO BID 06/15/23 03/29/25 pen needle, diabetic 31 gauge x 06/15/23 03/29/25 3/16 (TechLITE Pen Needle) pen needle, diabetic 32 gauge x 06/15/23 03/29/25 5/32 (TechLITE Pen Needle) tramadol 50 mg tablet 50 mg PO Q6H PRN chronic pain 06/15/23 03/29/25 fluticasone propionate 50 1 spray intranasal DAILY PRN 11/29/24 03/29/25 mcg/actuation nasal spray,suspension guaifenesin 1,200 mg tablet, 1,200 mg PO BID PRN 11/29/24 03/29/25 extended release 12 hr (Mucinex) polyethylene glycol 3350 17 gram 17 g PO QDAY PRN 11/29/24 03/29/25 oral powder packet (Miralax) valsartan 320 mg tablet mg PO 03/29/25 03/29/25 Previous Rx's ?Medication ?Instructions ?Recorded insulin glargine 100 unit/mL (3 50 unit (0.5 mL) SUBCUT BID #15 mL 10/28/24 mL) subcutaneous pen (Lantus Solostar U-100 Insulin) insulin lispro 100 unit/mL 15 unit (0.15 mL) SUBCUT TID #15 mL 10/28/24 subcutaneous pen (Admelog SoloStar U-100 Insulin lispro) amiodarone 200 mg tablet (Pacerone) 200 mg PO QDAY #30 tabs 11/29/24 dapagliflozin propanediol 10 mg 10 mg PO DAILY #30 tabs 11/29/24 tablet (Farxiga) furosemide 40 mg tablet (Lasix) 40 mg PO BID #60 tabs 11/29/24 potassium chloride 20 mEq 30 meq (1.5 x 20 mEq) PO BID #10 12/06/24 tablet,extended release (K-Tab) tabs metolazone 2.5 mg tablet 2.5 mg PO DAILY #10 tabs 12/07/24 atorvastatin 40 mg tablet 40 mg PO DAILY #30 tabs 03/17/25 carvedilol 25 mg tablet 25 mg PO BID #60 tabs 03/17/25 in home oxygen #1 ea 03/29/25 tramadol 100 mg tablet 100 mg PO TID #60 tabs 03/29/25 Allergies Allergy/AdvReac Type Severity Reaction Status Date / Time lisinopril AdvReac cough Verified 03/29/25 12:44 Review of Systems Const: Denies: fever(s) or chills Card: Denies: chest pain Resp: Denies: dyspnea GI: Denies: abdominal pain : Denies: dysuria, urinary frequency or urinary urgency Musc: Denies: neck pain or back pain Skin/Breast: Denies: rash PFSH ED PFSH: Medical History Back pain GERD (gastroesophageal reflux disease) Myocardial infarction Hypercholesterolemia Sarcoidosis Peripheral neuropathy Osteoarthritis Azotemia Hypertension Diabetes Chronic systolic (congestive) heart failure COPD (chronic obstructive pulmonary disease) [place] type 2a hyperlipoproteinemia Type 2 diabetes mellitus without complication Cerebrovascular accident Arteriosclerosis of coronary artery bypass graft Surgical History Hx of CABG Family History Mother Cancer Father Diabetes Brother Psychiatric illness Social History Smoking and tobacco/nicotine status: never used tobacco/nicotine Physical Exam Const: GENERAL APPEARANCE: cooperative ORIENTATION/CONSCIOUSNESS: Yes awake, Yes oriented to person, Yes oriented to place and Yes oriented to time HENMT: COMMON NORMALS: normocephalic, atraumatic and hearing grossly normal bilaterally HEAD & SCALP: normocephalic and atraumatic Resp: COMMON NORMALS: normal respiratory effort, No retractions, No use of accessory muscles and clear to auscultation bilaterally AUSCULTATION: clear to auscultation bilaterally Cardio: COMMON NORMALS: regular rate, regular rhythm and No murmurs present (Cardio) RATE: regular rate RHYTHM: regular rhythm GI: COMMON NORMALS: Soft to palpation and No hepatosplenomegaly present AUSCULTATION: Yes normoactive bowel sounds PALPATION: Yes Soft to palpation, No Tenderness to palpation present (GI), No Guarding due to palpation present (GI) and Yes No hepatosplenomegaly present Extremity: COMMON NORMALS: normal to inspection, capillary refill normal, no clubbing, cyanosis or edema, no calf tenderness and no pedal edema Neuro: SENSORIUM/ORIENTATION: Yes oriented to person, Yes oriented to place and Yes oriented to time Skin: COMMON NORMALS: no rashes or lesions noted GENERAL SKIN EXAM: no rashes or lesions noted Course Vital Signs: Vital signs: Vital Signs Temperature 98.7 F 04/12/25 13:41 Pulse Rate 83 04/12/25 14:15 Respiratory Rate 20 H 04/12/25 13:57 Blood Pressure 149/86 04/12/25 14:15 Pulse Oximetry 96 04/12/25 14:15 Oxygen Delivery Me thod Nasal Cannula 04/12/25 14:15 Oxygen Flow Rate 4 04/12/25 14:15 MDM - SOB/Dyspnea Lab Data 04/12/25 14:02 Labs/Radiology: Radiology Impressions Chest X-Ray 04/12/25 13:42 Impression: 1. Bilateral lower lobe opacities which may represent fluid, atelectasis and/or pneumonia. 2. Atherosclerosis and cardiomegaly. Laboratory Results Sodium Cancelled 04/12/25 14:02 Potassium Cancelled 04/12/25 14:02 Chloride Cancelled 04/12/25 14:02 Carbon Dioxide Cancelled 04/12/25 14:02 Anion Gap Cancelled 04/12/25 14:02 BUN Cancelled 04/12/25 14:02 Creatinine Cancelled 04/12/25 14:02 GFR Calculation Cancelled 04/12/25 14:02 Glucose Cancelled 04/12/25 14:02 Calculated Osmolality Cancelled 04/12/25 14:02 Calcium Cancelled 04/12/25 14:02 Total Bilirubin Cancelled 04/12/25 14:02 AST Cancelled 04/12/25 14:02 ALT Cancelled 04/12/25 14:02 Alkaline Phosphatase Cancelled 04/12/25 14:02 Troponin T Baseline Cancelled 04/12/25 14:02 Total Protein Cancelled 04/12/25 14:02 Albumin Cancelled 04/12/25 14:02 Globulin Cancelled 04/12/25 14:02 Amorphous Sediment Not Reportable 04/12/25 14:10 Discharge Plan Discharge Condition: Stable Prescriptions: No Action albuterol sulfate 2.5 mg /3 mL (0.083 %) solution for nebulization 2.5 mg inhalation Q4H PRN (Reason: Shortness Of Breath Or Wheezing) fluticasone propion-salmeterol [Wixela Inhub] 250-50 mcg/dose blister with device 1 inh inhalation BID aspirin [Adult Aspirin Regimen] 81 mg tablet,delayed release (DR/EC) 81 mg PO DAILY ipratropium-albuterol 0.5 mg-3 mg(2.5 mg base)/3 mL solution for nebulization 3 ml inhalation QID PRN (Reason: Shortness Of Breath Or Wheezing) gabapentin 100 mg capsule 200 mg PO BID glyburide 5 mg tablet 10 mg PO BID Mucinex 1,200 mg tablet extended release 12hr 1,200 mg PO BID PRN polyethylene glycol 3350 [Miralax] 17 gram powder in packet 17 g PO QDAY PRN dapagliflozin propanediol [Farxiga] 10 mg tablet 10 mg PO DAILY Qty: 30 0RF furosemide [Lasix] 40 mg tablet 40 mg PO BID Qty: 60 0RF amiodarone [Pacerone] 200 mg tablet 200 mg PO QDAY Qty: 30 2RF Rx Instructions: 200 twice daily for 1 week followed by once daily tramadol 50 mg tablet 50 mg PO Q6H PRN (Reason: chronic pain ) (DME) OneTouch Verio test strips Strip See Rx Instructions .Route Rx Instructions: As directed (DME) pen needle, diabetic [TechLITE Pen Needle] 31 gauge x 3/16 needle See Rx Instructions .Route Rx Instructions: As directed (DME) pen needle, diabetic [TechLITE Pen Needle] 32 gauge x 5/32 needle See Rx Instructions .Route Rx Instructions: As directed potassium chloride [K-Tab] 20 mEq tablet extended release 30 meq PO BID Qty: 10 0RF metolazone 2.5 mg tablet 2.5 mg PO DAILY Qty: 10 0RF Rx Instructions: For three days, take one pill twice daily, thereafter, take 1 pill daily valsartan 320 mg tablet PO tramadol 100 mg tablet 100 mg PO TID Qty: 60 1RF (DME) in home oxygen See Rx Instructions .Route .MEDSUPPLY Qty: 1 0RF Rx Instructions: As directed-2L continuous per nasal cannula include portable tanks. See office note for further details. atorvastatin 40 mg tablet 40 mg PO DAILY Qty: 30 2RF carvedilol 25 mg tablet 25 mg PO BID Qty: 60 2RF Rx Instructions: must administer with a meal/food insulin glargine [Lantus Solostar U-100 Insulin] 100 unit/mL (3 mL) insulin pen 50 unit SUBCUT BID Qty: 15 0RF insulin lispro [Admelog SoloStar U-100 Insulin] 100 unit/mL insulin pen 15 unit SUBCUT TID Qty: 15 0RF fluticasone propionate 50 mcg/actuation spray,suspension 1 spray INTRANASAL DAILY PRN Referrals: Blayne Desai MD [Primary Care Provider, Family Practice] Print Language: Citizen Of [place] Coding Level of Care Code ED Tower Watchman for Aiden Retana
[2025-04-12 13:57] VITALS: BP 154/84; PULSE 86; RESP 20; O2SAT 95
--- OUTSIDE RECORDS SUMMARY | 2025-04-12 14:04 | XMS_ITS | Patient Health Record ---
Author Organization [facility] Address [address] [place] [address] Care Team Providers Care Chuck Wagon Driver Name Role Phone Malka Oliveira Primary Care Provider [phone] Raymond Barrios Unavailable [phone] Allergies Allergen (clinical drug ingredient) Drug/Non Drug Allergy documented on EMR Reaction Allergy Type Onset Date Status lisinopril Lisinopril cough Drug Allergy Activ e Reason For Referral No Information Medications Medication SIG (Take, Route, Frequency, Duration) Notes Start Date End Date Status Atorvastatin Calcium 40 mg Tablet 1 tablet Orally once daily at hs; Duration: 30 days Active Ventolin HFA 108 (90 Base) MCG/ACT Aerosol Solution INHALE TWO PUFFS EVERY 4 HOURS NEEDED; Duration: 13 Active Famotidine 20 mg Tablet TAKE ONE TABLET BY MOUTH EVERY DAY NEEDED; Duration: 30 Active TechLite Pen Fabens 31G X 5 MM Miscellaneous as directed in vitro daily; Duration: 30 days Active Amoxicillin 500 MG Capsule 1 capsule Orally every 8 hrs; Duration: 10 days Active Tamsulosin HCl 0.4 mg Capsule take 1 capsule BY MOUTH EVERY DAY; Duration: 30 Active Carvedilol 25 mg Tablet 1 tablet with fo od Orally Twice a day; Duration: 30 days Active Aspirin 81 MG Tablet Chewable 2 tab Oral Once a day; Duration: 30 04/22/2013 Active Lantus SoloStar 100 UNIT/ML Solution Pen-injector inject 72 units Subcutaneous daily; Duration: 30 days Active Mucinex 600 MG Tablet Extended Release 12 Hour 2 tabs Orally every 12 hrs; Duration: 14 days 08/29/2020 Active Wixela Inhub 250-50 MCG/DOSE Aerosol Powder Breath Activated 1 puff Inhalation Twice a day; Duration: 30 days Active Gabapentin 100 mg Capsule 1 capsule Orally twice daily; Duration: 30 days Active Felodipine ER 5 MG Tablet Extended Release 24 Hour 1 tablet Orally; Duration: 30 days Dose increase Active Isosorbide Mononitrate ER 30 mg Tablet Extended Release 24 Hour TAKE ONE TABLET BY MOUTH EVERY MORNING; Duration: 30 Active Valsartan 320 mg Tablet TAKE 1 TABLET BY MOUTH EVERY DAY; Duration: 30 Active Ipratropium-Albuterol 0.5-2.5 (3) MG/3ML Solution 3 ml as needed Inhalation every 6 hrs; Duration: 30 Active Blood Glucose Test - Strip as directed In Vitro three times daily; Duration: 30 days E11.65 12/13/2021 Active Invokana 100 mg Tablet 1 tablet before t he first meal of the day Orally Once a day; Duration: 30 days Active Furosemide 80 mg Tablet TAKE 1 TABLET BY MOUTH TWO TIMES DAILY *TAKE IN AM AND AT 2PM* Orally twice daily; Duration: 30 days Active NovoLOG FlexPen 100 UNIT/ML Solution Pen-injector inject 10 units before each meal Subcutaneous daily before each meal; Duration: 30 days 11/15/2021 Active glyBURIDE 5 mg Tablet TAKE ONE TABLET BY MOUTH TWICE DAILY; Duration: 30 Active Social History Tobacco Use: Social History Observation Description Date Details (start date - stop date) Never Smoker NA - NA Social History Drugs/Alcohol: Social Info Question Answer Notes Alcohol Screen (Audit-C) Did you have a drink containing alcohol in the past year? No Points 0 Interpretation Negative Drugs Have you used drugs other than those for medical reasons in the past 12 months? No Caffeine Intake: 1-2 cups per day Household: Social Info Question Answer Notes Household Marital status: single Number of adults in household: 1 Number of children in household: 0 Level of education: not finished high school Tobacco Use: Social Info Question Answer Notes xTobacco Use/Smoking Are you a nonsmoker Additional Details Category Social Info Options Details Drugs/Alcohol: Do you smoke marijuana? De nies Do you drink alcohol? 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 confirmed Problem Type II diabetes mellitus without complication (831977952) Type 2 diabetes mellitus without complications (E11.9) Active confirmed Problem Lumbosacral spondylosis without myelopathy (73081819) Other spondylosis, lumbar region (M47.896) Active confirmed Problem Polyneuropathy associated with another disorder (214784844) Polyneuropathy associated with underlying disease (G63) Active confirmed Problem Sinusitis (82024969) Sinusitis (J32.9) Active c onfirmed Problem Chronic systolic heart failure (812255972) Chronic systolic congestive heart failure (I50.22) Active confirmed Problem Acid reflux (612878803) Acid reflux (K21.9) Active confirmed Problem Gastroesophageal reflux disease (869069458) Mild acid reflux (K21.9) Active confirmed Problem Hypercholesterolemia (77332034) Hypercholesterolemia (E78.00) Active confirmed Problem Hypertension (28987291) Hypertension (I10) Active confirmed Problem Low back pain (855494770) Low back pain (724.2) 2018 Active confirmed [id number]- Problem Type II diabetes mellitus uncontrolled (254100627) Type 2 diabetes, uncontrolled (250.02) 2009 Active confirmed [id number]- Problem Chronic combined systolic and diastolic heart failure (483935236919454) Combined systolic and diastolic heart failure, chronic (428.42) 2013 Active confirmed [id number]- Problem Lumbosacral spondylosis without myelopathy (76881198) Lumbar osteoarthritis (721.3) 2014 Active confirmed [id number]- Problem Essential hypertension (36538637) Essential hypertension (401.1) 2014 Active confirmed [id number]- Problem Diabetes mellitus type 2 (disorder) (82656225) Type 2 diabetes (250.00) 2018 Active confirmed [id number]- Problem Neurologic disorder associated with type II diabetes mellitus (570896778) Diabetes with neurological manifestations, type II or unspecified type, not stated as uncontrolled (250.60) 2009 Problem resolved confirmed [id number]- Problem Sarcoidosis (61316834) Sarcoidosis (135) 2009 Problem resolved confirmed [id number]- Problem Abscess of oral tissue (23658045) Cellulitis and abscess of oral soft tissues (528.3) 2018 Problem resolved confirmed [id number]- Problem Impetigo (47790300) Impetigo (684) 2010 Problem resolved confirmed [id number]- Problem Edema (583051410) Edema (782.3) 2012 Problem resolved confirmed [id number]- Problem Cough (00755637) Cough (786.2) 2011 Problem resolved confirmed [id number]- Problem Slowing of urinary stream (47176838) Slowing of urinary stream (788.62) 2015 Problem resolved confirmed [id number]- Problem Upper respiratory infection (59947706) Upper respiratory infection (465.9) 2018 Problem resolved confirmed [id number]- Problem Neck pain (08372383) Neck pain (723.1) 2009 Problem resolved confirmed [id number]- Problem Moderate recurrent major depression (62028554) Major depression, recurrent episode, moderate (296.32) 2009 Problem resolved confirmed [id number]- Problem Shortness of breath (844044763) Shortness of breath (786.09) 2007 Problem resolved confirmed [id number]- Problem Chronic systolic heart failure (943183897) Systolic heart failure, chronic (428.22) 2017 Problem resolved confirmed [id number]- Problem Onychomycosis caused by dermatophyte (258152908) Toe onychomycosis (110.1) 2015 Problem resolved confirmed [id number]- Problem Screening for colon cancer (013228694) Screening for colon cancer (V76.49) 2018 Problem resolved confirmed [id number]- Problem Acute sinusitis (82125267) Acute sinusitis (461.9) 2016 Problem resolved confirmed [id number]- Problem Right lower quadrant pain (820660152) RLQ abdominal pain (789.03) 2015 Problem resolved confirmed [id number]- Problem Acute exacerbation o f chronic obstructive airways disease (782887581) Acute exacerbation of chronic obstructive pulmonary disease (COPD) (491.21) 2018 Problem resolved confirmed [id number]- Problem Bilateral pneumonia (846821185) Bilateral pneumonia (486) 2015 Problem resolved confirmed [id number]- Problem Congestive heart failure (28845801) Congestive heart failure (428.0) 2015 Problem resolved confirmed [id number]- Problem Elevated levels of transaminase & lactic acid dehydrogenase (128596399) Elevated SGPT (ALT) (790.4) 2018 Problem resolved confirmed [id number]- Problem Influenza with non-respiratory manifestation (51413424) Flu like symptoms (487.8) 2014 Problem resolved confirmed [id number]- Problem Generalized abdomina l pain (035805403) Generalized abdominal pain (789.07) 2017 Problem resolved confirmed [id number]- Problem Lab: Used to mat ch unlinked laboratory orders (V92) 2014 Problem resolved confirmed [id number]- Problem Herpes zoster (2893542) Herpes zoster (053.9) 2007 Problem resolved confirmed [id number]- Problem Peripheral neuropath y (049662111) Peripheral neuropathy (356.9) 2017 Problem resolved confirmed [id number]- Problem Rib pain (198461493) Rib pain (786.50) 2018 Problem resolved confirmed [id number]- Problem Serous otitis media (63778602) Serous otitis media (381.4) 2013 Problem resolved confirmed [id number]- Problem Acute otitis media (8618752) Acute otitis media (382.00) 2017 Problem resolved confirmed [id number]- Problem Congestion (55131963) Congestion (477.9) 2008 Problem resolved confirmed [id number]- Problem Thyroid function tests abnormal (636363428) Abnormal thyroid findings (794.5) 2015 Problem resolved confirmed [id number]- Problem Congestive heart failure (11852779) CHF (428.0) 2013 Problem resolved confirmed [id number]- Problem Acute myocardial infarction (63071695) Acute myocardial infarction, unspecified site (410.90) 2012 Problem resolved confirmed [id number]- Problem Pneumococcal pneumonia (120822865) Acute lobar pneumonia (481) 2016 Problem resolved confirmed [id number]- Problem Change in bowel habi t (35885477) Change in bowel habits (787.99) 2017 Problem resolved confirmed [id number]- Problem COPD - Chronic obstructive pulmonary disease (54599700) COPD (496) 2018 Problem resolved confirmed [id number]- Problem Tinea pedis (0843812) Tinea pedis (110.4) 2013 Problem resolved confirmed [facility]- Problem Irregular heart beat (009254299) Irregular heart beat (785.1) 2015 Problem resolved confirmed [facility]- Problem Hypertension (98348074) HTN (401.1) 2009 Problem resolved confirmed [facility]- Plan Of Treatment No Information Insurance Providers Payer Name Payer Address Payer Phone Subscriber Number Group Number Insured Name Patient Relationship to Insured Coverage Start Date Coverage End Date [place] [address] [place] [address] [id number] Owen Mcgovern Self - patient is the insured 5 Medical (General) History Medical History History ICD Code Hypertension Myocardial infarction Hypercholesterolemia Congestive heart failure Coronary artery disease COPD Sarcoidosis Type 2 diabetes Peripheral neuropathy Osteoarthritis Azotemia Surgical History Surgery Date(Month/Year) Coronary Artery Bypass Graft: 4-V 03/2013
[2025-04-12 14:12] LABS: Hematocrit 38.7 % (37-53); Hemoglobin 11.00 g/dL (11.27-16.99); Mean Corpuscular HGB Conc 28.4 g/dL (30-55); Mean Corpuscular Hemoglobin 21.1 pg (27-33); Mean Corpuscular Volume 74.1 fl (82-101); Nucleated Red Blood Cells % 0 %; Platelet Count 126 10^3/cmm (157-399); Red Blood Count 5.22 10^6/uL (3.85-5.65); White Blood Count 8.25 10^3/uL (3.29-11.43)
[2025-04-12] MEDS: FUROsemide 10 mg/mL SDV 4mL 60 MG IVP (14:13)
[2025-04-12 14:15] VITALS: BP 149/86; PULSE 83; O2SAT 96
[2025-04-12 14:34] LABS: Glucose Urine UA Negative (Normal); Nitrate Urine Negative (Negative); Specific Gravity, Urine 1.007 (1.005-1.030)
[2025-04-12 14:39] LABS: Add Urine Microscopic? YES
[2025-04-12 14:54] LABS: Slide Review Slide Review Perform
[2025-04-12 15:11] LABS: Respiratory Syncytial Virus Ce NEGATIVE (Negative); SARS-CoV-2 PCR NEGATIVE (Negative)
--- NOTE | 2025-04-12 15:15 | ECG_ITS ---
[facility]25-04[facility]12 Pat Name: Owen Ann Department: Room: Gender: Male Rate Marker: : 1960 Requested By: Seth Major Order Number: [id number] Chun MD: Abilio Perdomo M.D. Measurements Intervals [place] Rate: 83 P: 39 NM: 211 QRS: -25 QRSD: 145 T: 124 QT: 415 QTc: 490 Interpretive Statements SINUS RHYTHM WITH FIRST DEGREE AV BLOCK LEFT BUNDLE BRANCH BLOCK [120+ ms QRS DURATION, 80+ ms Q/S IN V1/V2, 85+ ms R IN I/aVL/V5/V6] Compared to ECG 04/12/2025 13:43:55 First degree AV block now present Left-axis deviation no longer present Electronically Signed On 04-15-2025 09:44:19 CDT by Abilio Perdomo M.D. [email or web address]
[2025-04-12 15:52] LABS: Troponin(5th) Baseline 32 ng/L (0-15)
[2025-04-12 16:20] LABS: Alanine Aminotransferase 10 U/L (0-41); Albumin Level 4.2 g/dL (3.5-5.2); Alkaline Phosphatase 108 U/L (40-130); Anion Gap 19.0 (5-19); Aspartate Amino Transferase 11 U/L (0-40); Blood Urea Nitrogen 19 mg/dL (8-23); Calcium 9.2 mg/dL (8.5-10.5); Carbon Dioxide 26 mmol/L (22-29); Chloride 97 mmol/L (98-107); Creatinine Clr Calc Pharmacy 98.9155; Globulin 2.3 g/dL (1.3-4.6); Glucose 206 mg/dL (65-115); Osmolality Calculated 294 mOsm/kg (285-295); Potassium 4.0 mmol/L (3.5-5.1); Sodium 138 mmol/L (136-145); Total Protein 6.5 g/dL (6.6-8.7)
--- NOTE | 2025-04-12 16:42 | CTR_ITS ---
PROCEDURE INFORMATION: Exam: CTA Chest With Contrast Exam date and time: 04/12/2025 5:08 PM Age: 64 years old Clinical indication: Shortness of breath; Additional info: Assess for pe TECHNIQUE: Imaging protocol: Computed tomographic angiography of the chest with contrast. Exam focused on the arteries. 3D rendering (Not supervised by radiologist): MIP and/or 3D reconstructed images were created by the technologist. Radiation optimization: All CT scans at this facility use at least one of these dose optimization techniques: automated exposure control; mA and/or kV adjustment per patient size (includes targeted exams where dose is matched to clinical indication); or iterative reconstruction. Contrast material: OMNI 350; Contrast volume: 100 ml; Contrast route: INTRAVENOUS (IV); COMPARISON: CT angio chest PE protcl [id number] 10/24/2024 2:49 PM RADIATION DOSE METRICS: Total DLP (mGy-cm): 439.1 FINDINGS: Pulmonary arteries: Enlarged pulmonary artery compatible with pulmonary hypertension. Questionable presence of peripheral nonocclusive filling defect in subsegmental left artery branch (series 7 image 6) unchanged from 02/10/2025 and possibly artifactual due to sequelae of remote embolism . Otherwise no acute pulmonary arterial emboli identified to the subsegmental branch level. Aorta: Moderate atherosclerotic calcification of the thoracic aorta ectatic ascending thoracic aorta up to 3.1 cm, unchanged. Lungs: Multiple small peripheral lung calcification in the right lateral costophrenic sulcus is unchanged, suggestive of sequelae of prior aspiration, otherwise nonspecific. Pleural spaces: Moderate right pleural effusion has increased from 10/24/2024, small left effusion has decreased. Moderate of the attenuation/patchy ground-glass opacities compatible with interstitial edema. Mild to moderate bandlike atelectasis in the inferior right middle lobe is unchanged . Moderate diffuse bronchial wall thickening moderate bronchial thickening in the bilateral lower lobes is decreased. Heart: Mild cardiomegaly, unchanged. Lymph nodes: Mild hilar adenopathy and mediastinal adenopathy likely reactive, not significantly changed. Spleen: Partially imaged mild splenomegaly at least up to 14.9 cm, unchanged from 10/24/2024. Extensive atherosclerotic calcification of the splenic artery. Bones/joints: Mild multilevel degenerative thoracic spondylosis. Multiple sternotomy wires. Soft tissues: Unremarkable. CT/CT angio chest PE protcl IMPRESSION: 1. No acute pulmonary emboli identified. Small subsegmental filling defect in the left lobe is unchanged, due to volume average artifact or sequelae of prior/chronic embolism. 2. Findings compatible with CHF/volume overload including mild multi chamber cardiomegaly, bilateral effusions and interstitial edema. 3. Enlarged pulmonary artery suggestive of pulmonary hypertension. 4. Moderate diffuse peribronchial thickening, bandlike opacities and moderate mucoid retention in the bilateral lower lobes , mildly decreased from 04/12/2025.
[2025-04-12] MEDS: iohexol 350 mg/mL 500 mL Btl (per mL) IV (17:14)
--- NOTE | 2025-04-12 17:46 | PM.HP ---
Providers/Chief Complaint Primary Care Provider: Blayne Desai MD Chief Complaint: SOB History of Present Illness Owen Ann is a 64 year old male with PMH systolic heart failure last known EF 34% , colon ca a s/p Kimberly's procedure earlier this year, elecated not to have adjuvant chemo presenting today with worsening SOB and worsening edema over the last 2 weeks. He is supposed to be taking lasix 80mg po daily however it appears he may have been taking only 20mg daily recently. Denies any chest pain. Orthopnea+. patient is chronically on home 02 but has had an increased requirement today at 4lpm. Denies any recent fever, chills, nausea, vomiting. Cough+ Review of Systems General: Reports: 10 or more systems reviewed and unremarkable except in HPI and below Const: Denies: fever(s), chills or body aches Eyes: Denies: change in vision, blurry vision or photophobia ENMT: Reports: hoarseness; Denies: throat pain, enlarged tonsils, odynophagia or nasal congestion Card: Denies: chest pain, palpitations, irregular heart rhythm, edema, swelling of feet/ankles, lightheadedness, pre-syncope, dyspnea on exertion or orthopnea Resp: Denies: dyspnea, productive cough, non-productive cough, wheezing, stridor, pain on inspiration, change in phlegm color, hemoptysis or chest congestion GI: Denies: abdominal pain, nausea, vomiting, hematemesis, coffee ground emesis, dysphagia, heartburn, diarrhea, constipation, GI cramping, change in stool character, hematochezia or melena : Denies: flank pain, dysuria, urinary frequency, urinary urgency, urinary hesitancy or hematuria Musc: Denies: neck pain, back pain, extremity pain, joint swelling, joint warmth or deformity Neuro: Denies: headache(s), numbness in extremities, weakness in extremities, sensory changes, difficulty walking, frequent falls, dizziness, vertigo, behavioral changes, Slurred speech present or seizure-like activity Psych: Denies: anxiety, depression, suicidal ideation or homicidal ideation Endo: Denies: polyuria, polydipsia, tired all the time, cold intolerance or hot flashes Shaheen/Lymph: Denies: easy bruising or easy bleeding Medications/Allergies Home Medications ?Medication ?Instructions ?Recorded ?Confirmed ?Last Taken ?Type aspirin 81 mg tablet,delayed 81 mg PO DAILY 07/05/21 04/12/25 04/12/25 History release (Adult Aspirin Regimen) gabapentin 100 mg capsule 200 mg PO BID 07/05/21 04/12/25 04/12/25 History blood sugar diagnostic (OneTouch 06/15/23 04/12/25 Unknown History Verio test strips) glyburide 5 mg tablet 10 mg PO BID 06/15/23 04/12/25 04/12/25 History pen needle, diabetic 31 gauge x 06/15/23 04/12/25 Unknown History 11/06 (TechLITE Pen Needle) pen needle, diabetic 32 gauge x 06/15/23 04/12/25 Unknown History (TechLITE Pen Needle) insulin glargine 100 unit/mL (3 50 unit (0.5 mL) SUBCUT BID #15 mL 10/28/24 04/12/25 04/12/25 Rx mL) subcutaneous pen (Lantus Solostar U-100 Insulin) insulin lispro 100 unit/mL 15 unit (0.15 mL) SUBCUT TID #15 mL 10/28/24 04/12/25 04/12/25 Rx subcutaneous pen (Admelog SoloStar U-100 Insulin lispro) amiodarone 200 mg tablet (Pacerone) 200 mg PO QDAY #30 tabs 11/29/24 04/12/25 Unknown Rx dapagliflozin propanediol 10 mg 10 mg PO DAILY #30 tabs 11/29/24 04/12/25 Unknown Rx tablet (Farxiga) fluticasone propionate 50 1 spray intranasal DAILY PRN 11/29/24 04/12/25 Unknown History mcg/actuation nasal allergies spray,suspension guaifenesin 1,200 mg tablet, 1,200 mg PO BID PRN Congestion 11/29/24 04/12/25 Unknown History extended release 12 hr (Mucinex) polyethylene glycol 3350 17 gram 17 g PO QDAY PRN Constipation 11/29/24 04/12/25 Unknown History oral powder packet (Miralax) atorvastatin 40 mg tablet 40 mg PO DAILY #30 tabs 03/17/25 04/12/25 04/12/25 Rx carvedilol 25 mg tablet 25 mg PO BID #60 tabs 03/17/25 04/12/25 04/12/25 Rx in home oxygen #1 ea 03/29/25 04/12/25 Unknown Rx valsartan 320 mg tablet 320 mg PO DAILY 03/29/25 04/12/25 04/12/25 History acetaminophen 325 mg tablet 650 mg PO TID PRN Pain 04/12/25 04/12/25 Unknown History azelastine 137 mcg (0.1 %) nasal 2 spray intranasal BID PRN 04/12/25 04/12/25 04/12/25 History spray allergies docusate sodium 100 mg capsule 100 mg PO BID PRN Constipation 04/12/25 04/12/25 Unknown History ferrous sulfate 325 mg (65 mg 325 mg PO BID 04/12/25 04/12/25 04/12/25 History iron) tablet (FeroSul) furosemide 40 mg tablet (Lasix) 40 mg PO BID PRN Edema 04/12/25 04/12/25 Unknown History potassium chloride 20 mEq 30 meq PO BID PRN edema 04/12/25 04/12/25 Unknown History tablet,extended release tramadol 100 mg tablet 100 mg PO TID PRN Pain 04/12/25 04/12/25 04/12/25 History Allergies Allergy/AdvReac Type Severity Reaction Status Date / Time lisinopril AdvReac cough Verified 03/29/25 12:44 PFSH Acute PFSH: Medical History Back pain GERD (gastroesophageal reflux disease) Myocardial infarction Hypercholesterolemia Sarcoidosis Peripheral neuropathy Osteoarthritis Azotemia Hypertension Diabetes Chronic systolic (congestive) heart failure COPD (chronic obstructive pulmonary disease) [place] type 2a hyperlipoproteinemia Type 2 diabetes mellitus without complication Cerebrovascular accident Arteriosclerosis of coronary artery bypass graft Surgical History Hx of CABG Family History Mother Cancer Father Diabetes Brother Psychiatric illness Social History Smoking and tobacco/nicotine status: never used tobacco/nicotine Vitals/I&O/Wt Last Vital Signs Temp 98.7 F 04/12/25 13:41 Pulse 83 04/12/25 14:15 Resp 20 H 04/12/25 13:57 BP 149/86 04/12/25 14:15 Pulse Ox 96 04/12/25 14:15 O2 Del Method Nasal Cannula 04/12/25 14:15 O2 Flow Rate 4 04/12/25 14:15 04/12/25 04/12/25 04/12/25 06:59 14:59 22:59 Output Total 500 / 500 Balance -500 / -500 Weight last 48 hrs Weight 102.058 kg Physical Exam Narrative: General: No acute distress, AO x3 HEENT: PERRLA, pupils bilaterally equal and reactive, pallors not present Chest: Normal vesicular breath sounds, no added sounds, equal good air entry bilaterally CVS: S1-S2 regular, no murmurs, no tachycardia, no gallops, no rubs Abdomen: Soft, nontender, no organomegaly, bowel sounds present Neuro: No focal deficits, no facial deformity, AO x3, power 5/5 in all limbs Extremities: 3+ pitting edema B/L Data 04/13/25 05:07 04/13/25 05:07 A&P Assessment and plan 1. Congestive heart failure: 64M with PMH as above p/w acute on chronic systolic CHF exacerbation last known EF 34% from 10/2024 Denes any chest pain today No new ST-T wave changes on EKG baseline trop 32, pending 2 hr and 6 hr trend Lasix 60mg iv given in ER, continue with 60mg iv q12h patient requests Pope catheter as states he feels too weak to get up repeatedly for urination Monitor I/O and renal function with initiation of iv diuresis supplemental 02 to keep 02 sat > 92% 2. Cardiomyopathy: last known EF 34%, echo reviewed from [facility] continue home doses of ASA, carvedilol, valsartan 3. Type 2 diabetes mellitus without complication: insulin sliding scale Plan: dvt ppx: lovenox 40 s/c q12h Full code PDMP PDMP Reviewed: Not Reviewed Attestations Medical Necessity Statement*: > 2 midnight stay is anticipated Coding Level of Care Code Acute Code for Chg Fwd Diagnoses Congestive heart failure I50.9 Cardiomyopathy I42.9 Type 2 diabetes mellitus without complication E11.9
[2025-04-12 18:35] LABS: Troponin 5 2HR 27.58 ng/L (0-15)
[2025-04-12 18:41] LABS: Troponin 5 2HR Delta -4.42 ABS# (0-10)
[2025-04-12 18:49] VITALS: BMI 33.2
[2025-04-12 19:09] VITALS: BP 139/77; PULSE 84; RESP 16; TEMP 36.4; O2SAT 93
--- NOTE | 2025-04-12 19:34 | ECG_ITS ---
[facility] Date: 2025-04-12 Pat Name: Owen Ann Department: Room: 253 Gender: Male Circulating Process Inspector: : 1960 Requested By: Seth Major Order Number: [id number] Chun MD: Abilio Perdomo M.D. Measurements Intervals [place] Rate: 85 P: 69 WI: 232 QRS: -34 QRSD: 145 T: 154 QT: 427 QTc: 508 Interpretive Statements SINUS RHYTHM WITH FIRST DEGREE AV BLOCK LEFT AXIS DEVIATION [QRS AXIS < -30] LEFT BUNDLE BRANCH BLOCK [120+ ms QRS DURATION, 80+ ms Q/S IN V1/V2, 85+ ms R IN I/aVL/V5/V6] Compared to ECG 04/12/2025 15:15:22 Left-axis deviation now present Electronically Signed On 04-15-2025 09:43:48 CDT by Abilio Perdomo M.D. [email or web address]
[2025-04-12 20:00] VITALS: BP 139/77; PULSE 84; RESP 16; TEMP 36.4; O2SAT 93
[2025-04-12] MEDS: FUROsemide 10 mg/mL SDV 10mL 60 MG IVP (21:21)
--- NOTE | 2025-04-12 21:47 | PC.NURSE ---
Patient's sugar was 369, gave 14 units per sliding scale.
[2025-04-12 22:50] LABS: Troponin 5 6HR 27.82 ng/L (0-15)
[2025-04-12 22:54] LABS: Troponin 5 6HR Delta -4.18 ng/L (0-12)
[2025-04-12 23:28] VITALS: BP 143/72; PULSE 78; RESP 17; TEMP 37.1; O2SAT 98
[2025-04-13 04:00] VITALS: BP 133/68; PULSE 75; RESP 17; TEMP 37.2; O2SAT 98
[2025-04-13 05:19] LABS: Hematocrit 35.4 % (37-53); Hemoglobin 10.00 g/dL (11.27-16.99); Mean Corpuscular HGB Conc 28.2 g/dL (30-55); Mean Corpuscular Hemoglobin 21.1 pg (27-33); Mean Corpuscular Volume 74.7 fl (82-101); Nucleated Red Blood Cells % 0 %; Platelet Count 125 10^3/cmm (157-399); Red Blood Count 4.74 10^6/uL (3.85-5.65); White Blood Count 7.41 10^3/uL (3.29-11.43)
[2025-04-13 05:36] LABS: Alanine Aminotransferase 9 U/L (0-41); Albumin Level 3.8 g/dL (3.5-5.2); Alkaline Phosphatase 93 U/L (40-130); Anion Gap 15.9 (5-19); Aspartate Amino Transferase 8 U/L (0-40); Blood Urea Nitrogen 19 mg/dL (8-23); Calcium 9.1 mg/dL (8.5-10.5); Carbon Dioxide 29 mmol/L (22-29); Chloride 99 mmol/L (98-107); Creatinine Clr Calc Pharmacy 84.3630; Globulin 2.2 g/dL (1.3-4.6); Glucose 178 mg/dL (65-115); Magnesium 2.2 mg/dL (1.7-2.3); Osmolality Calculated 297 mOsm/kg (285-295); Potassium 3.9 mmol/L (3.5-5.1); Sodium 140 mmol/L (136-145); Total Protein 6.0 g/dL (6.6-8.7)
[2025-04-13 08:00] VITALS: BP 114/66; PULSE 74; RESP 18; TEMP 36.7; O2SAT 96
[2025-04-13] MEDS: FUROsemide 10 mg/mL SDV 10mL 60 MG IVP ×2 (08:30→20:53)
[2025-04-13 11:45] VITALS: BP 116/71; PULSE 71; RESP 18; TEMP 36.9; O2SAT 92
[2025-04-13 16:31] VITALS: BP 124/76; PULSE 77; RESP 17; TEMP 36.8; O2SAT 98
--- NOTE | 2025-04-13 16:54 | PM.PN ---
Subjective Subjective: patient is symptomatically better today. Lungs are clear to auscultation. Lower extremity edema is persisting. Medications: Reviewed: Yes Vitals/I&O/Wt Last Vital Signs Temp 98.3 F 04/13/25 16:31 Pulse 77 04/13/25 16:31 Resp 17 04/13/25 16:31 BP 124/76 04/13/25 16:31 Pulse Ox 98 04/13/25 16:31 O2 Del Method Nasal Cannula 04/13/25 16:31 O2 Flow Rate 4 04/13/25 04:00 Weight last 48 hrs Weight 71.441 kg Weight 102.058 kg Weight 102.058 kg Physical Exam Narrative: General: No acute distress, AO x3 HEENT: PERRLA, pupils bilaterally equal and reactive, pallors not present Chest: Normal vesicular breath sounds, no added sounds, equal good air entry bilaterally CVS: S1-S2 regular, no murmurs, no tachycardia, no gallops, no rubs Abdomen: Soft, nontender, no organomegaly, bowel sounds present Neuro: No focal deficits, no facial deformity, AO x3, power 5/5 in all limbs Extremities: 3+ pitting edema B/L Urinary Catheter Management: Pope: Cath Placed During This Visit: yes Reason for Continuing Indwelling Catheter: Other Urinary Catheter Date of Insertion: 04/12/25 Urinary Catheter Time of Insertion: 22:10 Data 04/13/25 05:07 04/13/25 05:07 A&P Assessment and plan 1. Congestive heart failure: 64M with PMH as above p/w acute on chronic systolic CHF exacerbation last known EF 34% from 10/2024 Denes any chest pain today No new ST-T wave changes on EKG baseline trop 32, pending 2 hr and 6 hr trend Lasix 60mg iv given in ER, continue with 60mg iv q12h patient requests Pope catheter as states he feels too weak to get up repeatedly for urination Monitor I/O and renal function with initiation of iv diuresis supplemental 02 to keep 02 sat > 92% 2. Cardiomyopathy: last known EF 34%, echo reviewed from [facility] continue home doses of ASA, carvedilol, valsartan 3. Type 2 diabetes mellitus without complication, with long-term current use of insulin: insulin sliding scale Plan: dvt ppx: lovenox 40 s/c q12h Full code April 13, 2025 Patient states he feels symptomatically better today. Urine output is charted only at 500 cc, however patient states he had a full bag earlier today. We will clarify with patient's nurse to ascertain 24-hour output. Clinically he feels better today. Less tachypneic in conversation. Chest is clear to auscultation. Will plan to continue with IV diuresis at Lasix 60 mg IV every 12 hours and closely continue to monitor for net negative state. Continue to monitor renal function PDMP PDMP Reviewed: Not Reviewed Attestations Medical Necessity Statement*: Continued need for IV diuresis Coding Level of Care Code Acute Code for Chg Fwd High MDM includes number and complexity of problems actively addressed during encounter, amount and/or complexity of data reviewed/ordered and described risk of complication, morbidity or mortality of management as documented Diagnoses Congestive heart failure I50.9 Heart failure type: other Cardiomyopathy I42.9 Type 2 diabetes mellitus without complication, with long-term current use of insulin E11.9; Z79.4 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
[2025-04-13 19:26] VITALS: BP 121/66; PULSE 76; RESP 17; TEMP 37.1; O2SAT 93
[2025-04-14] VITALS (7 sets, daily range): BP systolic 91–129; BP diastolic 57–73; PULSE 68–80; RESP 15–20; TEMP 36.3–37.2; O2SAT 90–98
[2025-04-14 05:18] LABS: Hematocrit 37.5 % (37-53); Hemoglobin 10.40 g/dL (11.27-16.99); Mean Corpuscular HGB Conc 27.7 g/dL (30-55); Mean Corpuscular Hemoglobin 21.1 pg (27-33); Mean Corpuscular Volume 76.1 fl (82-101); Nucleated Red Blood Cells % 0 %; Platelet Count 125 10^3/cmm (157-399); Red Blood Count 4.93 10^6/uL (3.85-5.65); White Blood Count 7.37 10^3/uL (3.29-11.43)
[2025-04-14 05:38] LABS: Alanine Aminotransferase 9 U/L (0-41); Albumin Level 4.1 g/dL (3.5-5.2); Alkaline Phosphatase 98 U/L (40-130); Anion Gap 14.8 (5-19); Aspartate Amino Transferase 12 U/L (0-40); Blood Urea Nitrogen 26 mg/dL (8-23); Calcium 9.0 mg/dL (8.5-10.5); Carbon Dioxide 32 mmol/L (22-29); Chloride 98 mmol/L (98-107); Creatinine Clr Calc Pharmacy 56.0915; Globulin 2.1 g/dL (1.3-4.6); Glucose 190 mg/dL (65-115); Osmolality Calculated 302 mOsm/kg (285-295); Potassium 3.8 mmol/L (3.5-5.1); Sodium 141 mmol/L (136-145); Total Protein 6.2 g/dL (6.6-8.7)
[2025-04-14] MEDS: FUROsemide 10 mg/mL SDV 10mL 60 MG IVP (09:10)
--- NOTE | 2025-04-14 15:20 | PM.PN ---
Subjective Subjective: Clinically continues to feel better. Less orthopnea. Lower extremity edema is improving. Medications: Reviewed: Yes Vitals/I&O/Wt Last Vital Signs Temp 97.7 F 04/14/25 12:08 Pulse 75 04/14/25 12:08 Resp 17 04/14/25 12:08 BP 129/73 04/14/25 12:08 Pulse Ox 90 04/14/25 12:08 O2 Del Method Room Air 04/14/25 04:00 O2 Flow Rate 4 04/14/25 00:00 04/14/25 04/14/25 04/14/25 06:59 14:59 22:59 Intake Total 1120 / 1120 Output Total 1500 / 1500 Balance -380 / -380 Weight last 48 hrs Weight 64.41 kg Weight 71.441 kg Weight 102.058 kg Physical Exam Narrative: General: No acute distress, AO x3 HEENT: PERRLA, pupils bilaterally equal and reactive, pallors not present Chest: Normal vesicular breath sounds, no added sounds, equal good air entry bilaterally CVS: S1-S2 regular, no murmurs, no tachycardia, no gallops, no rubs Abdomen: Soft, nontender, no organomegaly, bowel sounds present Neuro: No focal deficits, no facial deformity, AO x3, power 5/5 in all limbs Extremities: 3+ pitting edema B/L Urinary Catheter Management: Pope: Cath Placed During This Visit: yes Reason for Continuing Indwelling Catheter: Accurate Measurement of Urinary Output in Critically Ill Patients Urinary Catheter Date of Insertion: 04/12/25 Urinary Catheter Time of Insertion: 22:10 Data 04/14/25 04:21 04/14/25 04:21 A&P Assessment and plan 1. Congestive heart failure: 64M with PMH as above p/w acute on chronic systolic CHF exacerbation last known EF 34% from 10/2024 Denes any chest pain today No new ST-T wave changes on EKG baseline trop 32, pending 2 hr and 6 hr trend Lasix 60mg iv given in ER, continue with 60mg iv q12h patient requests Pope catheter as states he feels too weak to get up repeatedly for urination Monitor I/O and renal function with initiation of iv diuresis supplemental 02 to keep 02 sat > 92% 2. Cardiomyopathy: last known EF 34%, echo reviewed from [facility] continue home doses of ASA, carvedilol, valsartan 3. Type 2 diabetes mellitus without complication, with long-term current use of insulin: insulin sliding scale Plan: dvt ppx: lovenox 40 s/c q12h Full code April 13, 2025 Patient states he feels symptomatically better today. Urine output is charted only at 500 cc, however patient states he had a full bag earlier today. We will clarify with patient's nurse to ascertain 24-hour output. Clinically he feels better today. Less tachypneic in conversation. Chest is clear to auscultation. Will plan to continue with IV diuresis at Lasix 60 mg IV every 12 hours and closely continue to monitor for net negative state. Continue to monitor renal function April 14, 2025 Patient is symptomatically feeling better today. States he had his oxygen of intermittently and did not feel as short of breath this previously. Urine output 2600 cc last 24 hours. Net -1.1 L now. Orthopnea is improving. Creatinine up to 1.3 today.we will transition IV to oral diuresis while closely monitoring his kidney function. If continues to diurese well plan to discharge in the upcoming 24 hours PDMP PDMP Reviewed: Not Reviewed Attestations Medical Necessity Statement*: Transition IV to oral diuretics today. 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
[2025-04-15 04:00] VITALS: BP 143/81; PULSE 85; RESP 16; TEMP 36.4; O2SAT 94
[2025-04-15 05:20] LABS: Hematocrit 38.0 % (37-53); Hemoglobin 10.80 g/dL (11.27-16.99); Mean Corpuscular HGB Conc 28.4 g/dL (30-55); Mean Corpuscular Hemoglobin 21.7 pg (27-33); Mean Corpuscular Volume 76.3 fl (82-101); Nucleated Red Blood Cells % 0 %; Platelet Count 147 10^3/cmm (157-399); Red Blood Count 4.98 10^6/uL (3.85-5.65); White Blood Count 7.93 10^3/uL (3.29-11.43)
[2025-04-15 05:45] LABS: Alanine Aminotransferase 8 U/L (0-41); Albumin Level 4.1 g/dL (3.5-5.2); Alkaline Phosphatase 96 U/L (40-130); Anion Gap 17.3 (5-19); Aspartate Amino Transferase 10 U/L (0-40); Blood Urea Nitrogen 24 mg/dL (8-23); Calcium 9.1 mg/dL (8.5-10.5); Carbon Dioxide 32 mmol/L (22-29); Chloride 99 mmol/L (98-107); Creatinine Clr Calc Pharmacy 63.2883; Globulin 2.0 g/dL (1.3-4.6); Glucose 216 mg/dL (65-115); Osmolality Calculated 309 mOsm/kg (285-295); Potassium 4.3 mmol/L (3.5-5.1); Sodium 144 mmol/L (136-145); Total Protein 6.1 g/dL (6.6-8.7)
[2025-04-15 08:00] VITALS: BP 99/78; PULSE 78; RESP 20; TEMP 36.2
[2025-04-15 08:39] VITALS: PULSE 78; O2SAT 94
--- NOTE | 2025-04-15 14:37 | P.DS_ITS ---
Discharge Providers Date of Admission: 04/12/25 18:25 Date of Discharge: April 15, 2025 Attending Provider at Admission: Donna Cabrales MD Attending Provider at Discharge: Donna Cabrales MD Primary Care Provider: Blayne Desai MD Diagnoses at Discharge Discharge Diagnosis 1. Cardiomyopathy: 2. Type 2 diabetes mellitus without complication, with long-term current use of insulin: 3. Chronic systolic (congestive) heart failure: Reason for Visit Reason for Visit: SOB Hospital Course Hospital Course Owen Ann is a 64 year old male with PMH systolic heart failure last known EF 34% , colon ca a s/p Kimberly's procedure earlier this year, elecated not to have adjuvant chemo presenting he was found to have acute on chronic systolic heart failure exacerbation with worsening SOB and worsening edema over the last 2 weeks. He is supposed to be taking lasix 80mg po daily however it appears he may have been taking only 20mg daily recently. Denies any chest pain. Orthopnea+.. EKG did not show any acute ST-T wave changes. Troponin series was not concerning for NSTEMI. He received diuresis with intravenous Lasix and did well with the same. He is net -4.4 L at the time of discharge. He is currently saturating 94% at room air. Lower extremity edema is improving. He has been discharged today with recommendations to continue Lasix 40 mg p.o. twice daily at the time of discharge. Refills were provided. He is recommended to hold valsartan at the time of discharge due to mild SANDRA creatinine bumping up to 1.3. Additionally his blood pressure was ranging 99-1 20 during the course of this admission. He has a follow-up appointment with his PCP on Thursday and is recommended to follow-up closely. Physical Exam Narrative: General: No acute distress, AO x3 HEENT: PERRLA, pupils bilaterally equal and reactive, pallors not present Chest: Normal vesicular breath sounds, no added sounds, equal good air entry bilaterally CVS: S1-S2 regular, no murmurs, no tachycardia, no gallops, no rubs Abdomen: Soft, nontender, no organomegaly, bowel sounds present Neuro: No focal deficits, no facial deformity, AO x3, power 5/5 in all limbs Extremities: Lower extremity edema significantly improved. Urinary Catheter Management: Pope: Cath Placed During This Visit: yes, but has since been removed by the nurse Reason for Continuing Indwelling Catheter: Decision to DC Catheter Urinary Catheter Date of Insertion: 04/12/25 Urinary Catheter Time of Insertion: 22:10 Date Urinary Catheter Removed: 04/15/25 Time Urinary Catheter Discontinued: 09:59 Discharge Data Studies Completed and Pending Completed Studies During Hospitalization Category Date Time Status CTA PE [CT angio chest PE protcl [id number]] Routine Cat Scan 04/12/25 16:42 Completed XR chest 1V portable [id number] Stat Exams 04/12/25 13:42 Completed Radiology Impressions Chest X-Ray 04/12/25 13:42 Impression: 1. Bilateral lower lobe opacities which may represent fluid, atelectasis and/or pneumonia. 2. Atherosclerosis and cardiomegaly. Chest CTA 04/12/25 16:42 IMPRESSION: 1. No acute pulmonary emboli identified. Small subsegmental filling defect in the left lobe is unchanged, due to volume average artifact or sequelae of prior/chronic embolism. 2. Findings compatible with CHF/volume overload including mild multi chamber cardiomegaly, bilateral effusions and interstitial edema. 3. Enlarged pulmonary artery suggestive of pulmonary hypertension. 4. Moderate diffuse peribronchial thickening, bandlike opacities and moderate mucoid retention in the bilateral lower lobes , mildly decreased from 04/12/2025. ADDENDUM: 04/12/25 191 impression point: Comparison study referenced is dated 10/24/2024, also used for comparison of the findings in the rest of the report. Laboratory Results WBC 7.93 10^3/uL (3.29-11.43) 04/15/25 04:30 RBC 4.98 10^6/uL (3.85-5.65) 04/15/25 04:30 Hgb 10.80 g/dL (11.27-16.99) L 04/15/25 04:30 Hct 38.0 % (37-53) 04/15/25 04:30 MCV 76.3 fl (82-101) L 04/15/25 04:30 MCH 21.7 pg (27-33) L 04/15/25 04:30 MCHC 28.4 g/dL (30-55) L 04/15/25 04:30 RDW 21.4 % (12.1-15.1) H 04/15/25 04:30 Plt Count 147 10^3/cmm (157-399) L 04/15/25 04:30 MPV Not Reportable 04/15/25 04:30 Neut % (Auto) 75.1 % 04/15/25 04:30 Lymph % (Auto) 9.8 % 04/15/25 04:30 Izard % (Auto) 10.2 % 04/15/25 04:30 Eos % (Auto) 3.9 % 04/15/25 04:30 Baso % (Auto) 0.5 % 04/15/25 04:30 Neut # (Auto) 5.95 10^3/uL (1.8-7.7) 04/15/25 04:30 Lymph # (Auto) 0.8 10^3/uL (0.8-4.8) 04/15/25 04:30 Izard # (Auto) 0.8 10^3/uL (0.2-0.9) 04/15/25 04:30 Eos # (Auto) 0.3 10^3/uL (0.0-0.8) 04/15/25 04:30 Baso # (Auto) 0.0 10^3/uL (0.0-0.1) 04/15/25 04:30 Nucleated RBC % (auto) 0 % 04/15/25 04:30 Nucleated RBCs # 0.0 /100WBC 04/15/25 04:30 Sodium 144 mmol/L (136-145) 04/15/25 04:30 Potassium 4.3 mmol/L (3.5-5.1) 04/15/25 04:30 Chloride 99 mmol/L (98-107) 04/15/25 04:30 Carbon Dioxide 32 mmol/L (22-29) H 04/15/25 04:30 Anion Gap 17.3 (5-19) 04/15/25 04:30 BUN 24 mg/dL (8-23) H 04/15/25 04:30 Creatinine 1.2 mg/dL (0.7-1.2) 04/15/25 04:30 GFR Calculation 61.1 mL/min (90-130) L 04/15/25 04:30 Glucose 216 mg/dL (65-115) H 04/15/25 04:30 POC Glucose 197 mg/dL (70-110) H 04/15/25 07:37 Calculated Osmolality 309 mOsm/kg (285-295) H 04/15/25 04:30 Calcium 9.1 mg/dL (8.5-10.5) 04/15/25 04:30 Magnesium 2.2 mg/dL (1.7-2.3) 04/13/25 05:07 Total Bilirubin 1.2 mg/dL (0.15-1.2) 04/15/25 04:30 AST 10 U/L (0-40) 04/15/25 04:30 ALT 8 U/L (0-41) 04/15/25 04:30 Alkaline Phosphatase 96 U/L (40-130) 04/15/25 04:30 Troponin T Baseline 32 ng/L (0-15) H 04/12/25 15:17 Troponin T 120 Minute 27.58 ng/L (0-15) H 04/12/25 17:50 Delta Troponin T -4.42 ABS# (0-10) L 04/12/25 17:50 Troponin T Hi Sens 6Hr 27.82 ng/L (0-15) H 04/12/25 21:54 Troponin T Hi Sens 6Hr Delta -4.18 ng/L (0-12) L 04/12/25 21:54 Total Protein 6.1 g/dL (6.6-8.7) L 04/15/25 04:30 Albumin 4.1 g/dL (3.5-5.2) 04/15/25 04:30 Globulin 2.0 g/dL (1.3-4.6) 04/15/25 04:30 Urine Color Yellow (Yellow) 04/12/25 14:10 Urine Appearance Clear (CLEAR) 04/12/25 14:10 Urine pH 7.0 (5-7) 04/12/25 14:10 Ur Specific [place] 1.007 (1.005-1.030) 04/12/25 14:10 Urine Protein Negative (Negative) 04/12/25 14:10 Urine Glucose (UA) Negative (Normal) 04/12/25 14:10 Urine Ketones Negative (Negative) 04/12/25 14:10 Urine Blood Negative (Negative) 04/12/25 14:10 Urine Nitrate Negative (Negative) 04/12/25 14:10 Urine Bilirubin Negative (Negative) 04/12/25 14:10 Urine Urobilinogen 1.0 mg/dL (Negative) 04/12/25 14:10 Ur Leukocyte Esterase 2+ (Negative) A 04/12/25 14:10 Urine RBC 0-2 /hpf (0-2) 04/12/25 14:10 Urine WBC 0-5 /hpf (0-5) 04/12/25 14:10 Ur Squamous Epith Cells 0-5 /hpf (0-5) 04/12/25 14:10 Amorphous Sediment Not Reportable 04/12/25 14:10 Urine Bacteria None seen /hpf (NONE) 04/12/25 14:10 Hyaline Casts 0-4 /lpf H 04/12/25 14:10 Influenza A (PCR) Negative (Negative) 04/12/25 14:10 Influenza Type B (PCR) Negative (Negative) 04/12/25 14:10 RSV (PCR) Negative (Negative) 04/12/25 14:10 SARS-CoV-2 (PCR) Negative (Negative) 04/12/25 14:10 Vitals Last Vital Signs Temp 97.2 F L 04/15/25 08:00 Pulse 78 04/15/25 08:39 Resp 20 H 04/15/25 08:00 BP 99/78 04/15/25 08:00 Pulse Ox 94 04/15/25 08:39 O2 Del Method Room Air 04/15/25 08:39 O2 Flow Rate 2 04/15/25 08:00 Discharge Plan Discharge Patient Disposition: Home Condition: Stable Prescriptions: Continued aspirin [Adult Aspirin Regimen] 81 mg tablet,delayed release (DR/EC) 81 mg PO DAILY glyburide 5 mg tablet 10 mg PO BID Mucinex 1,200 mg tablet extended release 12hr 1,200 mg PO BID PRN (Reason: Congestion) polyethylene glycol 3350 [Miralax] 17 gram powder in packet 17 g PO QDAY PRN (Reason: Constipation) (DME) OneTouch Verio test strips Strip See Rx Instructions .Route Rx Instructions: As directed (DME) pen needle, diabetic [TechLITE Pen Needle] 31 gauge x 3/16 needle See Rx Instructions .Route Rx Instructions: As directed (DME) pen needle, diabetic [TechLITE Pen Needle] 32 gauge x 5/32 needle See Rx Instructions .Route Rx Instructions: As directed (DME) in home oxygen See Rx Instructions .Route .MEDSUPPLY Qty: 1 0RF Rx Instructions: As directed-2L continuous per nasal cannula include portable tanks. See office note for further details. insulin glargine [Lantus Solostar U-100 Insulin] 100 unit/mL (3 mL) insulin pen 50 unit SUBCUT BID Qty: 15 0RF insulin lispro [Admelog SoloStar U-100 Insulin] 100 unit/mL insulin pen 15 unit SUBCUT TID Qty: 15 0RF fluticasone propionate 50 mcg/actuation spray,suspension 1 spray INTRANASAL DAILY PRN (Reason: allergies) acetaminophen 325 mg Tablet 650 mg PO TID PRN (Reason: Pain) ferrous sulfate [FeroSul] 325 mg (65 mg iron) tablet 325 mg PO BID docusate sodium 100 mg capsule 100 mg PO BID PRN (Reason: Constipation) azelastine 137 mcg (0.1 %) spray,non-aerosol 2 spray INTRANASAL BID PRN (Reason: allergies) potassium chloride 20 mEq tablet extended release 30 meq PO BID PRN (Reason: edema) tramadol 100 mg tablet 100 mg PO TID PRN (Reason: Pain) furosemide [Lasix] 40 mg tablet 40 mg PO BID 30 Days Qty: 60 0RF atorvastatin 40 mg tablet 40 mg PO DAILY Qty: 30 2RF carvedilol 25 mg tablet 25 mg PO BID Qty: 60 2RF Rx Instructions: must administer with a meal/food amiodarone [Pacerone] 200 mg tablet 200 mg PO QDAY Qty: 30 2RF gabapentin 100 mg capsule 200 mg PO BID Qty: 30 0RF dapagliflozin propanediol [Farxiga] 10 mg tablet 10 mg PO DAILY Qty: 30 0RF Held valsartan 320 mg tablet 320 mg PO DAILY Hold Instructions: Resume on 04/21/25. hold until SANDRA resolves Discharge Order = DC NOW: Discharge Order (Routine); Ordered 04/15/25 Ordered By: Donna Cabrales Referrals: Blayne Desai MD [Primary Care Provider, Family Practice] Referral Note: We have notified your physician's clinic of the need for a follow-up appointment to be scheduled. If you have not heard from them within the next 2 business days, please call them directly. Patient Instructions: Heart Failure (DC), CHF Stoplight, Opioid Safety, Patient Portal & Ren Instructions Discharge Attestations Time Spent in Discharge Care*: greater than 30 min Status at Discharge: Cognitive status at discharge: cognitively intact , Behavioral status at discharge: cooperative , Quality Metrics Clinical Quality Measures [ No reported AMI, CVA or VTE this stay] Coding Level of Care Code Acute Code for Chg Fwd Diagnoses Congestive heart failure I50.9 Heart failure type: other Cardiomyopathy I42.9 Type 2 diabetes mellitus without complication, with long-term current use of insulin E11.9; Z79.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
== END 2025-04-15 11:41 | disposition home or self-care (01) | DRG 291 ==
LOC: ER 16:52 → MEDSURG 18:25
PROVIDERS: Admitting Provider Student in an Organized Health Care Education/Training Program; Emergency Provider Family Medicine; PCP Family Medicine; Visit Provider Student in an Organized Health Care Education/Training Program
DX: I11.0 Hypertensive heart disease with heart failure (principal); I50.23 Acute on chronic systolic (congestive) heart failure; C18.9 Malignant neoplasm of colon, unspecified; I42.9 Cardiomyopathy, unspecified; E11.9 Type 2 diabetes mellitus without complications; K21.9 Gastro-esophageal reflux disease without esophagitis; E78.00 Pure hypercholesterolemia, unspecified; D86.9 Sarcoidosis, unspecified; G62.9 Polyneuropathy, unspecified; M19.90 Unspecified osteoarthritis, unspecified site; I25.10 Atherosclerotic heart disease of native coronary artery without angina pectoris; J44.9 Chronic obstructive pulmonary disease, unspecified; I25.2 Old myocardial infarction; Z79.4 Long term (current) use of insulin; Z90.49 Acquired absence of other specified parts of digestive tract; Z79.82 Long term (current) use of aspirin; Z99.81 Dependence on supplemental oxygen; Z79.891 Long term (current) use of opiate analgesic; Z95.1 Presence of aortocoronary bypass graft; Z86.73 Personal history of transient ischemic attack (TIA), and cerebral infarction without residual deficits
CPT/HCPCS: 36415; 36416; 51702; 71045; 71275; 80053; 81001; 82962; 83735; 84484; 85025; 87637; 93005; 96372; 99285; J1650; J1815; J1938; J9999

== ENCOUNTER 2025-05-24 13:03 | Oncology outpatient (recurring) (ONCR) | payer MEDICAID, SELFPAY ==
[2025-05-24 13:21] LABS: Hematocrit 40.4 % (37-53); Hemoglobin 11.60 g/dL (11.27-16.99); Mean Corpuscular HGB Conc 28.7 g/dL (30-55); Mean Corpuscular Hemoglobin 21.2 pg (27-33); Mean Corpuscular Volume 73.9 fl (82-101); Nucleated Red Blood Cells % 0 %; Platelet Count 162 10^3/cmm (157-399); Red Blood Count 5.47 10^6/uL (3.85-5.65); White Blood Count 7.02 10^3/uL (3.29-11.43)
[2025-05-24 13:24] LABS: Slide Review Slide Review Perform
[2025-05-24 13:49] LABS: Alanine Aminotransferase 8 U/L (0-41); Albumin Level 4.2 g/dL (3.5-5.2); Alkaline Phosphatase 115 U/L (40-130); Anion Gap 12.8 (5-19); Aspartate Amino Transferase 8 U/L (0-40); Blood Urea Nitrogen 17 mg/dL (8-23); Calcium 9.0 mg/dL (8.5-10.5); Carbon Dioxide 29 mmol/L (22-29); Chloride 102 mmol/L (98-107); Creatinine Clr Calc Pharmacy 89.0847; Ferritin 26 ng/mL (30-400); Globulin 2.4 g/dL (1.3-4.6); Glucose 225 mg/dL (65-115); Iron 29 ug/dL (59-158); Osmolality Calculated 299 mOsm/kg (285-295); Potassium 3.8 mmol/L (3.5-5.1); Sodium 140 mmol/L (136-145); Total Iron Binding Capacity 390 mcg/dl; Total Protein 6.6 g/dL (6.6-8.7); Unsaturated Iron Binding 361 ug/dL (112-347)
[2025-05-24 14:05] LABS: Vitamin B12 614 pg/mL (232-1245)
[2025-05-24 15:14] LABS: Carcinoembryonic Antigen 1.7 ng/mL (0.0-4.7)
== END 2025-06-23 23:59 | disposition home or self-care (01) ==
PROVIDERS: PCP Family Medicine; Visit Provider Internal Medicine
DX: Z08 Encounter for follow-up examination after completed treatment for malignant neoplasm (principal); Z85.038 Personal history of other malignant neoplasm of large intestine; D50.9 Iron deficiency anemia, unspecified; R53.83 Other fatigue; I50.9 Heart failure, unspecified; G89.29 Other chronic pain; Z79.899 Other long term (current) drug therapy
CPT/HCPCS: 36415; 80053; 82378; 82607; 82728; 82746; 83010; 83540; 83550; 83615; 85025; 99214